=== PATIENT | female | born 1985 | race Caucasian/White ===

== ENCOUNTER 2025-04-16 19:53 | Emergency (ER) | payer BC, SELFPAY ==
--- OUTSIDE RECORDS SUMMARY | 2023-12-25 07:00 | XMS_ITS | Encounter Summary ---
Author Organization [facility] Address [address] [place] [address] Care Team Providers Care Valve Technician Name Role Phone Roopa Mcfarland APRN Primary Care Provider Reason for Referral * Diagnostic Imaging (Routine) - Closed Specialty Diagnoses / Procedures Referred By Contac t Referred To Contact Radiology Diagnoses Pelvic pain Procedures US Non-ob Transvaginal Partha Paz APRN [facility] [address] [phone] Phone: tel: fax: Referral ID Status Reason Start Date Expiration Date Visits Re quested Visits Authorized [id number] Closed 12/16/2023 12/15/2024 1 1 Reason for Visit * Diagnostic Imaging (Routine) - Closed Specialty Diagnoses / Procedures Referred By Contac t Referred To Contact Radiology Diagnoses Pelvic pain Procedures US Non-ob Transvaginal Partha Paz APRN [facility] [address] [place] [phone] Phone: tel: fax: Referral ID Status Reason Start Date Expiration Date Visits Re quested Visits Authorized [id number] Closed 12/16/2023 12/15/2024 1 1 Encounter Details Date Type Department Care Team (Late st Contact Info) Description 12/25/2023 8:00 AM EDT Hospital Encounter [facility] [address] [place] [address] Pelvic pain Social History Tobacco Use Types Packs/Day Years Used Date Smoking Tobacco: Never Smokeless Tobacco: Never Alcohol Use Standard Drinks/Week Comments Yes 0 (1 standard drink = 0.6 oz pur e alcohol) rare AUDIT-C Answer Date Recorded Q1: How often do you have a drink containing alcohol? Never 09/04/2024 Q2: How many drinks containi ng alcohol do you have on a typical day when you are drinking? Patient does not drink Q3: How often do you have si x or more drinks on one occasion? Never 09/04/2024 Abuse Screen Answer Date Recorded Feels Unsafe at Home or Work/School no 09/04/2024 Feels Threatened by Someone no 08/20 Does Anyone Try to Keep You From Having Contact with Others or Doing Things Outside Your Home? no 09/04/2024 Physical Signs of Abuse Present no 09/04/2024 Housing Stability Answer Date Recorded Current Living Arrangements home 08/20 Potentially Unsafe Housing Conditions Not on raya e 09/04/2024 Disabilities Answer Date Recorded Difficulty Concentrating, Remembering or Making Decisions no 09/04/2024 Difficulty Managing Errands Independently no 09/04/2024 Comments No Sex and Gender Information Value Date Recorded Sex Assigned at Female 08/24/2024 4:29 PM EDT Legal Sex Female 11:51 AM EDT Gender Identity Not on file Sexual Orientation Straight 08/24/2024 4: 29 PM EDT documented as of this encounter Plan of Treatment Upcoming Encounters Date Type Department Care Team (Late st Contact Info) Description 04/20/2025 3:45 PM EST Office Visit [facility] [address] [place] [address] Yury Suarez DO [address] [place] [address] documented as of this encounter Procedures Procedure Name Priority Date/Time Associated Diagnosis Comments US NON-OB TRANSVAGINAL Routine 12/25/2023 8:40 AM EDT Pelvic pain documented in this encounter Results * US Non-ob Transvaginal (12/25/2023 8:40 AM EDT) Anatomical Region Laterality Modality Body Ultrasound 12/25/2023 8:32 AM EDT Narrative 12/25/2023 9:42 AM EDT PAT NAME: ALEXANDREA ZARATE [facility] REC#: [id number] DA: [id number] PAT GEND: F PAT TYPE: O EXAM ROSANGELA: [id number] REF PHYS PARTHA PAZ Indication ======== Pain - RLQ and LLQ pain Dx: Pelvic pain [R10.2 (ICD-10-CM)] Comparison Studies There are no relevant prior studies to which this study is being compared History ====== Medical History Past surgical history: Previous surgeries performed Surgery: Hysterectomy 2007 Method ======= Voluson E6, Transvaginal ultrasound examination, Color Doppler flow performed, 3D ultrasound examination. View: Adequate view Uterus ====== Uterus: Not visualized Uterus details: Uterus and cervix are not seen, consistent with stated history. Right Ovary Rt ovary: Normal Rt ovary D1 30.5 mm Rt ovary D2 18.5 mm Rt ovary D3 14.6 mm Rt ovary Vol 4.3 cm Rt ovary other findings: Heterogeneous area [id number] Left Ovary ========= Lt ovary: Normal Lt ovary D1 34.6 mm Lt ovary D2 27.0 mm Lt ovary D3 15.40 mm Lt ovary Vol 7.5 cm Lt ovarian cyst(s): Cysts identified Lt ovarian cyst D1 11.0 mm Lt ovarian cyst D2 8.0 mm Lt ovarian cyst D3 12.0 mm Lt ovarian cyst mean 10.3 mm Lt ovarian cyst vol 0.553 cm Lt ovarian cyst findings: debris filled Lt ovarian cysts other findings: There are mulitple areas with similar appearance, this is the largest one that is measured. Cul de Sac ========= Normal. No free fluid visualized Impression ========= The uterus and cervix are not seen, consistent with stated history of prior hysterectomy. Bilateral ovaries with heterogenous areas, most consistent with hemorrhagic cysts. Recommendation A repeat ultrasound in ~ 6 weeks is recommended to document resolution of the cyst. If clinically appropriate, this study should be ordered in the early follicular phase of the cycle. Melt Superintendant: Humera Gamez RDNV Physician: Magui Nagy MD Electronically signed by: Magui Nagy MD at: 09:42 Procedure Note Magui Nagy MD - 12/25/2023 PAT NAME: ALEXANDREA ZARATE [facility] REC#: [id number] DA: [id number] PAT GEND: F PAT TYPE: O EXAM ROSANGELA: [id number] REF PHYS PARTHA PAZ Indication ======== Pain - RLQ and LLQ pain Dx: Pelvic pain [R10.2 (ICD-10-CM)] Comparison Studies There are no relevant prior studies to which this study is beingcompared History ====== Medical History Past surgical history:Previous surgeries performed Surgery:Hysterectomy Method ======= Voluson E6, Transvaginal ultrasound examination, Color Doppler flowperformed, 3D ultrasound examination. View: Adequate view Uterus ====== Uterus:Not visualized Uterus details:Uterus and cervix are not seen, consistent with statedhistory. Right Ovary Rt ovary:Normal Rt ovary D130.5 mm Rt ovary D218.5 mm Rt ovary D314.6 mm Rt ovary Vol4.3 cm Rt ovary other findings:Heterogeneous area [id number] Left Ovary ========= Lt ovary:Normal Lt ovary D134.6 mm Lt ovary D227.0 mm Lt ovary D315.40 mm Lt ovary Vol7.5 cm Lt ovarian cyst(s):Cysts identified Lt ovarian cyst D111.0 mm Lt ovarian cyst D28.0 mm Lt ovarian cyst D312.0 mm Lt ovarian cyst mean10.3 mm Lt ovarian cyst vol0.553 cm Lt ovarian cyst findings:debris filled Lt ovarian cysts other findings:There are mulitple areas with similarappearance, this is the largest one that is measured. Cul de Sac ========= Normal. No free fluid visualized Impression ========= The uterus and cervix are not seen, consistent with stated history ofprior hysterectomy. Bilateral ovaries with heterogenous areas, most consistent withhemorrhagic cysts. Recommendation A repeat ultrasound in ~ 6 weeks is recommended to document resolution ofthe cyst. If clinically appropriate, this study should be ordered in theearly follicular phase of the cycle. Melt Superintendant: Humera Gamez RDMS Physician: Magui Nagy MD Electronically signed by: Magui Nagy MD at: 09:42 us Partharobert Abel [facility] LATEX SPOOLER IMG US ORDERABLES Kadie l Result documented in this encounter Visit Diagnoses Diagnosis Pelvic pain documented in this encounter Care Teams Valve Technician Relationship Specialty Start Date End Date Roopa Mcfarland APRN [address] [place] [address] PCP - General Nurse Practitioner 06/03/23 documented as of this encounter
--- OUTSIDE RECORDS SUMMARY | 2025-02-18 19:00 | XMS_ITS | Clinical Summary ---
Author Organization Unknown Care Team Providers Care Bench Press Operator Name Role Phone JONNY CANADA Unavailable Unavailable COREY WEISS, CHACE Unavailable Unavailable Payers Payer Name Policy Type Policy Number Effective Date Expira tion Date [facility] [id number] [facility] [id number] Problems Condition Name Condition Details Condition Category Status Onset Date Resolution Date Last Treatment Date Treating Clinician Comments ENCOUNTER FOR ATTENTION TO GASTROSTOMY Active 2024-04 00:00: 00 UNSPECIFIED SEVERE PROTEIN-KATIE AMRITA MALNUTRITION Active 2024-04 00:00: 00 NONINFECTIVE GASTROENTERI TIS AND COLITIS, UNSPECIFIED Active 2024-04 00:00: 00 CONSTIPATION , UNSPECIFIED Active 2024-04 00:00: 00 SYSTEMIC LUPUS ERYTHEMATOSU S, UNSPECIFIED Active 2024-04 00:00: 00 OTHER SPECIFIED NUTRITIONAL DEFICIENCIES Active 2024-04 00:00: 00 SUPRAVENTRIC ULAR TACHYCARDIA, UNSPECIFIED Active 2024-04 00:00: 00 MIGRAINE, UNSP, NOT INTRACTABLE, WITHOUT STATUS MIGRAINOSUS Active 2024-04 00:00: 00 ANXIETY DISORDER, UNSPECIFIED Active 2024-04 00:00: 00 AUTOIMMUNE THYROIDITIS Active 2024-04 00:00: 00 PRSNL HX OF TIA (TIA), AND CEREB INFRC W/O RESID DEFICITS Active 2024-04 00:00: 00 OTHER TREATING PLANT PUMPER (CURRENT) DRUG THERAPY Active 2024-04 00:00: 00 HISTORY OF FALLING Active 2024-04 00:00: 00 Allergies, Adverse Reactions, Alerts Allergy Name Allergy Type Status Severity Reaction(s) Onset Date Inactive Date Treating Clinician Comments ADHESIVE Propensity to adverse reactions Active 2025-01 18:07:5 2 Medications Ordered Medication Name Filled Medication Name Start Date Stop Date Current Medication? Ordering Clinician Indication Dosage Frequency Signature (SIG) Comments Components bisoprolol fumarate 10 mg tablet 2024-04 00:00: 00 Yes [id number] HYPERTENSIO N 1 tablet DAILY 1 tablet DAILY (route: oral) Med Classific ation: Cardiovas cular Therapy Agents levothyroxi ne 25 mcg tablet 2024-04 00:00: 00 Yes [id number] HYPOTHYROID ISM 0.5 tablet DAILY 0.5 tablet DAILY (route: oral) Med Classific ation: Endocrine Nutren 1.5 0.07 gram-1.5 kcal/mL liquid for tube feed 2024-04 00:00: 00 Yes [id number] CACHEXIA 50 mL DIRECTED 50 mL DIRECTED (route: feeding tube) Med Classific ation: Electroly te Balance-N utritiona l Products Xifaxan 550 mg tablet 2024-04 00:00: 00 02-25 23:59 :00 No [id number] DIARRHEA 1 tablet 2 TIMES DAILY 1 tablet 2 TIMES DAILY (route: oral) Med Classific ation: Anti-Infe ctive Agents cyclobenzap rine 5 mg tablet 2024-04 00:00: 00 Yes [id number] MUSCLE SPASM 1 tablet NEEDED 1 tablet NEEDED (route: oral) Med Classific ation: Locomotor System cyproheptad ine 4 mg tablet 2024-04 00:00: 00 Yes [id number] ALLERGIES 1 tablet NEEDED 1 tablet NEEDED (route: oral) Med Classific ation: Respirato ry Therapy Agents dicyclomine 20 mg tablet 2024-04 00:00: 00 Yes [id number] DIARRHEA 1 tablet NEEDED 1 tablet NEEDED (route: oral) Med Classific ation: Gastroint estinal Therapy Agents escitalopra m 10 mg tablet 2024-04 00:00: 00 Yes [id number] DEPRESSION 1 tablet 2 TIMES DAILY 1 tablet 2 TIMES DAILY (route: oral) Med Classific ation: Central Nervous System Agents hydroxyzine HCl 10 mg tablet 2024-04 00:00: 00 Yes [id number] ANXIETY 1 tablet NEEDED 1 tablet NEEDED (route: oral) Med Classific ation: Central Nervous System Agents midodrine 10 mg tablet 2024-04 00:00: 00 Yes [id number] HYPOTENSION 1 tablet 3 TIMES DAILY 1 tablet 3 TIMES DAILY (route: oral) Med Classific ation: Cardiovas cular Therapy Agents omeprazole 40 mg capsule,del ayed release 2024-04 00:00: 00 Yes [id number] ACID REFLUX 1 capsule DAILY 1 capsule DAILY (route: oral) Med Classific ation: Gastroint estinal Therapy Agents promethazin e 12.5 mg tablet 2024-04 00:00: 00 Yes [id number] NAUSEA 1 tablet NEEDED 1 tablet NEEDED (route: oral) Med Classific ation: Respirato ry Therapy Agents topiramate 50 mg tablet 2024-04 00:00: 00 Yes [id number] ANXIETY 1 tablet 2 TIMES DAILY 1 tablet 2 TIMES DAILY (route: oral) Med Classific ation: Central Nervous System Agents trazodone 50 mg tablet 2024-04 00:00: 00 Yes [id number] INSOMNIA 1 tablet BEDTIME 1 tablet BEDTIME (route: oral) Med Classific ation: Central Nervous System Agents Vital Signs Vital Name Observation Time Observation Value Commen ts Temperature 2025-02-19 08:26:00.000 98.7 [degF] Temperature 2025-02-11 12:49:00.000 97.6 [degF] BMI (%) 2025-02-11 12:49:00.000 23 kg/m2 Height 2025-02-11 12:49:00.000 62 [in_us] Pulse 2025-02-19 08:26:00.000 81 /min Pulse 2025-02-11 12:49:00.000 77 /min O2 Saturation (%) 2025-02-19 08:26:00.000 99 % O2 Saturation (%) 2025-02-11 12:49:00.000 98 % Respirations 2025-02-19 08:26:00.000 18 /min Respirations 2025-02-11 12:49:00.000 18 /min Weight (lbs) 2025-02-19 08:26:00.000 132 [lb_av] Weight (lbs) 2025-02-11 12:49:00.000 129 [lb_av] Systolic Blood Pressure 2025-02-19 08:26:00.000 102 mm [Hg] Systolic Blood Pressure 2025-02-11 12:49:00.000 90 mm[ Hg] Diastolic Blood Pressure 2025-02-19 08:26:00.000 68 mm [Hg] Diastolic Blood Pressure 2025-02-11 12:49:00.000 48 mm [Hg] Plan of Treatment Planned Activity Planned Date Details Comments Future Scheduled Test SKILLED NU RSE PRN VISIT ORDER: 2 NEEDED IN PERSON FOR 8 WEEKS AND 1 NEEDED REMOTE VISIT FOR SN FOR 8 WEEKS (NUMBER) OF PRN VISITS MAY BE PERFORMED DURING THIS CERTIFICATION PERIOD FOR THE FOLLOWING REASON(S): FALLS, NAUSEA, FEVER, VOMITING, DIARRHEA, CONSTIPATION, LABS SKILLED NURSE TO EVALUATE AND DEVELOP PLAN OF CARE TO BE SIGNED BY THE PHYSICIAN. SKILLED NURSE TO ASSESS/EVALUATE ANY CONDITIONS THAT PRESENT THEMSELVES AND THAT WILL IMPACT THE PLAN OF CARE DURING THE COURSE OF THE EPISODE TO IDENTIFY CHANGES AND INTERVENE TO MINIMIZE COMPLICATIONS. TEACH AND MONITOR PATIENT/CAREGIVER ABILITY TO SAFELY ADMINISTER MEDICATIONS. PHONE TOUCHPOINTS CAN BE PERFORMED NEEDED TO SUPPLEMENT THE PLAN OF CARE. [code = SKILLED NURSE PRN VISIT ORDER: 2 NEEDED IN PERSON FOR 8 WEEKS AND 1 NEEDED REMOTE VISIT FOR SN FOR 8 WEEKS (NUMBER) OF PRN VISITS MAY BE PERFORMED DURING THIS CERTIFICATION PERIOD FOR THE FOLLOWING REASON(S): FALLS, NAUSEA, FEVER, VOMITING, DIARRHEA, CONSTIPATION, LABS SKILLED NURSE TO EVALUATE AND DEVELOP PLAN OF CARE TO BE SIGNED BY THE PHYSICIAN. SKILLED NURSE TO ASSESS/EVALUATE ANY CONDITIONS THAT PRESENT THEMSELVES AND THAT WILL IMPACT THE PLAN OF CARE DURING THE COURSE OF THE EPISODE TO IDENTIFY CHANGES AND INTERVENE TO MINIMIZE COMPLICATIONS. TEACH AND MONITOR PATIENT/CAREGIVER ABILITY TO SAFELY ADMINISTER MEDICATIONS. PHONE TOUCHPOINTS CAN BE PERFORMED NEEDED TO SUPPLEMENT THE PLAN OF CARE.] Future Scheduled Test PSYCHOSOCI AL / COGNITIVE ASSESSMENT INDICATES THE FOLLOWING NEEDS: (SOCIAL, FINANCIAL, TRANSPORTATION, ADDITIONAL CARE PROVIDERS/ DISCIPLINES, REFERRALS TO OUTSIDE ENTITIES, ETC.). [code = PSYCHOSOCIAL / COGNITIVE ASSESSMENT INDICATES THE FOLLOWING NEEDS: (SOCIAL, FINANCIAL, TRANSPORTATION, ADDITIONAL CARE PROVIDERS/ DISCIPLINES, REFERRALS TO OUTSIDE ENTITIES, ETC.).] Future Scheduled Test SKILLED NU RSE TO OBSERVE AND ASSESS PATIENT WITH GENERALIZED DEPRESSION. ASSESS NEED FOR MEDICATION, MEDICATION CHANGES AND POTENTIAL NEED FOR REFERRAL TO PROVIDE COUNSELING AND ASSISTANCE WITH MANAGING DEPRESSION. [code = SKILLED NURSE TO OBSERVE AND ASSESS PATIENT WITH GENERALIZED DEPRESSION. ASSESS NEED FOR MEDICATION, MEDICATION CHANGES AND POTENTIAL NEED FOR REFERRAL TO PROVIDE COUNSELING AND ASSISTANCE WITH MANAGING DEPRESSION.] Future Scheduled Test CLINICIAN TO EDUCATE PATIENT / CAREGIVER IN FALL PREVENTION AND PROVIDE INTERVENTIONS TO REDUCE FALL RISK AND ENHANCE HOME SAFETY [code = CLINICIAN TO EDUCATE PATIENT / CAREGIVER IN FALL PREVENTION AND PROVIDE INTERVENTIONS TO REDUCE FALL RISK AND ENHANCE HOME SAFETY] Future Scheduled Test SN REMOTE VIDEO VISIT(S) TO ASSESS/EVALUATE AND PROVIDE EDUCATION/TRAINING ON INTERVENTIONS/PROCEDURES PER THE POC, SAFE MEDICATION ADMINISTRATION, DISEASE MANAGEMENT SIGNS/SYMPTOMS OF EXACERBATION, METHODS TO PREVENT EXACERBATION, AND SIGNS/SYMPTOMS TO REPORT AGENCY, PHYSICIAN OR 911. [code = SN REMOTE VIDEO VISIT(S) TO ASSESS/EVALUATE AND PROVIDE EDUCATION/TRAINING ON INTERVENTIONS/PROCEDURES PER THE POC, SAFE MEDICATION ADMINISTRATION, DISEASE MANAGEMENT SIGNS/SYMPTOMS OF EXACERBATION, METHODS TO PREVENT EXACERBATION, AND SIGNS/SYMPTOMS TO REPORT AGENCY, PHYSICIAN OR 911.] Future Scheduled Test PATIENT/CA REGIVER WILL BE KNOWLEDGEABLE OF DISCHARGE PLANS AND WILL DEMONSTRATE/PROVIDE EDUCATION AND RESOURCES NEEDED TO MAINTAIN HEALTH. [code = PATIENT/CAREGIVER WILL BE KNOWLEDGEABLE OF DISCHARGE PLANS AND WILL DEMONSTRATE/PROVIDE EDUCATION AND RESOURCES NEEDED TO MAINTAIN HEALTH.] Future Scheduled Test AGENCY ALBERT L DISCHARGE PATIENT TO PHYSICIAN/HEALTH CARE PROVIDER AND MAY ACCEPT ORDERS FROM THE FOLLOWING PHYSICIANS: JONNY CANADA [code = AGENCY WILL DISCHARGE PATIENT TO PHYSICIAN/HEALTH CARE PROVIDER AND MAY ACCEPT ORDERS FROM THE FOLLOWING PHYSICIANS: JONNY CANADA] Future Scheduled Test SKILLED NU RSE FOR OBSERVATION / ASSESSMENT OF GASTROINTESTINAL STATUS AND TO INTERVENE TO MINIMIZE COMPLICATIONS. SKILLED NURSE TO PROVIDE SKILLED TEACHING/REINFORCEMENT RELATED TO ALTERED GASTROINTESTINAL STATUS INCLUDING PATHOPHYSIOLOGY, SELF CARE MANAGEMENT, NUTRITIONAL REQUIREMENTS, AND MEDICATION REGIMEN [code = SKILLED NURSE FOR OBSERVATION / ASSESSMENT OF GASTROINTESTINAL STATUS AND TO INTERVENE TO MINIMIZE COMPLICATIONS. SKILLED NURSE TO PROVIDE SKILLED TEACHING/REINFORCEMENT RELATED TO ALTERED GASTROINTESTINAL STATUS INCLUDING PATHOPHYSIOLOGY, SELF CARE MANAGEMENT, NUTRITIONAL REQUIREMENTS, AND MEDICATION REGIMEN] Future Scheduled Test SKILLED NU RSE FOR TEACHING OF NG TUBE MANAGEMENT INCLUDING CARE OF SITE, EQUIPMENT, PREPARATION/ADMINISTRATION OF FEEDING AND/OR MEDICATIONS, AND PROBLEM SOLVING TECHNIQUES. TO ADMINISTER NUTREN 1.5 [place] FEEDING VIA PUMP AT 50 ML/HR OVER 22 HOURS. FLUSH WITH 100 ML OF WATER EVERY 4 HRS. MAY BREAK UP FEEDINGS. OK TO DO 3 CONTAINERS IN AM AND 2 CONTAINERS IN PM. [code = SKILLED NURSE FOR TEACHING OF NG TUBE MANAGEMENT INCLUDING CARE OF SITE, EQUIPMENT, PREPARATION/ADMINISTRATION OF FEEDING AND/OR MEDICATIONS, AND PROBLEM SOLVING TECHNIQUES. TO ADMINISTER NUTREN 1.5 [place] FEEDING VIA PUMP AT 50 ML/HR OVER 22 HOURS. FLUSH WITH 100 ML OF WATER EVERY 4 HRS. MAY BREAK UP FEEDINGS. OK TO DO 3 CONTAINERS IN AM AND 2 CONTAINERS IN PM.] Future Scheduled Test SKILLED NU RSE TO FOCUS ON IDENTIFIED NEED FOR HIGH RISK MEDICATION INTERVENTION. [code = SKILLED NURSE TO FOCUS ON IDENTIFIED NEED FOR HIGH RISK MEDICATION INTERVENTION.] Future Scheduled Test SKILLED NU RSE FOR OBSERVATION / ASSESSMENT OF PATIENT'S IMPAIRED NUTRITION RELATED TO MALNUTRITION. INSTRUCT PATIENT / CAREGIVER ON INTERVENTIONS DESIGNED TO IMPROVE NUTRITIONAL INTAKE AND PATIENT WELL BEING. [code = SKILLED NURSE FOR OBSERVATION / ASSESSMENT OF PATIENT'S IMPAIRED NUTRITION RELATED TO MALNUTRITION. INSTRUCT PATIENT / CAREGIVER ON INTERVENTIONS DESIGNED TO IMPROVE NUTRITIONAL INTAKE AND PATIENT WELL BEING.] Goal 2025-02-19 Patient Goal - TO BEABLE TO EAT Goal Provider Goal - A PLAN OF CARE WILL BE ESTABLISHED THAT MEETS ALL PATIENT'S NURSING NEEDS AND COUNTERSIGNED BY PHYSICIAN. Goal Provider Goal - PATIENT/CAREGIVER WILL VERBALIZE/DEMONSTRATE ABILITY FOR THE PATIENT TO FUNCTION WITHIN THEIR COMMUNITY AND TO PARTICIPATE IN THE DEVELOPMENT AND IMPLEMENTATION OF THEIR CARE PLAN THROUGHOUT THE CERTIFICATION PERIOD Goal Provider Goal - PATIENT/CAREGIVER WILL VERBALIZE MEASURES TO COPE WITH DEPRESSION AND STATE SIGNS AND SYMPTOMS TO REPORT TO PHYSICIAN BY 04/11/25 Goal Provider Goal - PATIENT TO DEMONSTRATE REDUCED FALL RISK AND IMPROVE HOME SAFETY BY 04/11/25 Goal Provider Goal - THROUGH REMOTE VIDEO VISIT(S) EDUCATION WILL BE RECEIVED TOWARDS POC ORDERS/GOALS. PATIENT/CAREGIVER WILL VERBALIZE/DEMONSTRATE THE FOLLOWING INTERVENTIONS/PROCEDURES THAT WHERE EDUCATED Goal Provider Goal - PATIENT AND/OR CAREGIVER WILL BE IN AGREEMENT WITH DISCHARGE PLANS AND WILL VERBALIZE HAVING RESOURCES AND KNOWLEDGE TO MAINTAIN HEALTH. Goal Provider Goal - PATIENT WILL REMAIN SAFE AND NEEDS WILL BE MET BY COLLABORATING ON POC AND COMMUNICATING CHANGES IN POC AND CHANGES AFFECTING DISCHARGE PLAN WITH PATIENT, CAREGIVER, RECEIVING PHYSICIAN/HEALTH CARE PROVIDER, AND OTHER PHYSICIANS WRITING ORDERS ON THE POC THROUGHOUT CERTIFICATION PERIOD. Goal Provider Goal - GASTROINTESTINAL STATUS WILL BE EVALUATED AND EXACERBATIONS IDENTIFIED WITH INTERVENTIONS IMPLEMENTED TO MINIMIZE COMPLICATIONS. PATIENT / CAREGIVER WILL VERBALIZE/DEMONSTRATE ABILITY TO CARE FOR ALTERED GASTROINTESTINAL STATUS. GOAL TO BE MET BY 04/11/25 Goal Provider Goal - PATIENT / CAREGIVER WILL BE ABLE TO TOLERATE NUTRITIONAL FEEDINGS AND VERBALIZE/DEMONSTRATE SELF MANAGEMENT OF GASTROSTOMY/JEJUNOSTOMY. GOAL TO BE MET BY 04/11/25 Goal Provider Goal - PATIENT/CAREGIVER DEMONSTRATES ABILITY TO ADHERE TO MEDICATION REGIMEN. GOAL TO BE MET BY 04/11/25 Goal Provider Goal - PATIENT / CAREGIVER WILL VERBALIZE/DEMONSTRATE APPROPRIATE METHODS TO MAINTAIN/GAIN WEIGHT. GOAL TO BE MET BY 04/11/25. Reason for Visit INDEPENDENT IN THE COMMUNITY Encounters Start Date/Time End Date/Time Encounter Type Admission Type Attending [facility] Care Department Encounter ID Discharge Date Discharge Status Discharge Condition Discharge Reason Percent Goals Met 2025-02-11 00:00:00 2025-02-19 00:00:00 Outpatient NEW ADMISSION [facility]ACE NICOLE [facility] [id number] 00:00:00 DISCHARGE TO HOME OR SELF CARE INDEPENDEN T IN THE COMMUNITY PER CLIENT REQUEST 100.00
[2025-04-16] VITALS (8 sets, daily range): BP systolic 99–117; BP diastolic 56–75; PULSE 64–71; RESP 16–20; TEMP 36.8–36.9; O2SAT 95–100; BMI 23.0
--- NOTE | 2025-04-16 20:34 | CT_ITS ---
PROCEDURE INFORMATION: Exam: CT Abdomen And Pelvis With Contrast Exam date and time: 04/16/2025 9:37 PM Age: 39 years old Clinical indication: Abdominal pain; Additional info: Recent pej tube placed; Inc pain, drainage TECHNIQUE: Imaging protocol: Computed tomography of the abdomen and pelvis with contrast. Radiation optimization: All CT scans at this facility use at least one of these dose optimization techniques: automated exposure control; mA and/or kV adjustment per patient size (includes targeted exams where dose is matched to clinical indication); or iterative reconstruction. Contrast material: ISOVUE; Contrast volume: 75 ml; Contrast route: IV; COMPARISON: No relevant prior studies available. FINDINGS: Tubes, catheters and devices: Jejunostomy catheter can be seen pulled to the anterior abdominal wall. This tube is present within the jejunum. Liver: Normal. No mass. Gallbladder and biliary ducts: Cholecystectomy. No ductal dilation. Pancreas: Normal. No ductal dilation. Spleen: Normal. No splenomegaly. Adrenal glands: Normal. No mass. Kidneys and ureters: Normal. No hydronephrosis. Stomach and bowel: Probable transient intussusception small bowel left midabdomen image 47 series 3. Fluid-filled bowel, nonspecific. Appendix: No evidence of appendicitis. Intraperitoneal space: Unremarkable. No free air. No significant fluid collection. Vasculature: Unremarkable. No abdominal aortic aneurysm. Lymph nodes: Unremarkable. No enlarged lymph nodes. Urinary bladder: Unremarkable as visualized. Reproductive: Unremarkable as visualized. Bones/joints: Unremarkable. No acute fracture. Soft tissues: Minimal induration of the soft tissues about the jejunostomy catheter without abscess.. IMPRESSION: Jejunostomy catheter appears to be in good position without evidence of complication. No significant acute findings.
--- OUTSIDE RECORDS SUMMARY | 2025-04-16 20:51 | XMS_ITS | Clinical Summary ---
Author Organization [facility] Address [address] [place] [address] Phone Care Team Providers Care Casing Wringer Operator Name Role Phone Unavailable Unavailable Conditions or Problems No information available. Medications No information available. Medications Administered No information available. Allergies, Adverse Reactions, Alerts No information available. Results No information available. Plan of Care No information available. Procedures No information available. Vital Signs No information available. Immunizations No information available. Advance Directives No information available.
--- OUTSIDE RECORDS SUMMARY | 2025-04-16 20:52 | XMS_ITS | Continuity of Care Document ---
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 - Thyroiditis: The patient's thyroiditis is causing significant symptoms, including voice changes and dysphagia. TSH levels have fluctuated significantly, indicating instability in thyroid function. - Dehydration: The patient is severely dehydrated due to persistent diarrhea and inability to retain fluids, leading to symptoms such as palpitations and dizziness. 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 Further diagnostic imaging is planned to confirm the diagnosis. - Dysphagia: The patient experiences significant difficulty swallowing, leading to avoidance of solid foods and contributing to nutritional deficiencies. - Diarrhea: The patient's diarrhea is severe and persistent, contributing to dehydration and electrolyte imbalances. - Nausea: The patient experiences nausea, particularly when attempting to eat, which is exacerbated by solid food intake. - Gastroesophageal reflux disease: The patient is on omeprazole for management, with ongoing symptoms requiring continued medication. Thyroiditis: - Continue monitoring thyroid function and adjust Synthroid dosage as needed. - Follow-up with endocrinology for further management. Dysphagia: - Avoid solid foods to prevent choking and aspiration. - Consider swallow study if symptoms persist. [email or web address] Not available 02/01/2025 10:47:09 Plan of Treatment Reminders Order Date Submit Date Provider Last Modified By Organization Details Last Modified Time Details Appointments None recorded. Lab None recorded. Referral None recorded. Procedures None recorded. Surgeries None recorded. Imaging None recorded. Medication Orders ondansetron HCl 8 mg tablet 2024 [facility], [address] [facility] [place], [address], 16:06:30 cyproheptad ine 4 mg tablet 2024 [facility], [address] [facility] [place], [address], 16:10:09 omeprazole 40 mg capsule,del ayed release 2024 [facility], [address] [facility] [address], [place], [address], 16:05:09 Patient TargetsNo targets recorded. Patient Instructions Encounter Date Encounter Id Patient Instructions Last Modified By Organization Details Last Modified Time 01/27/2025 [id number] medical record request* [email or web address] Not available 03/01/2025 12:43:15 - Stay hydrated by drinking Gatorade and vitamin water regularly. - Avoid solid foods to prevent choking and aspiration. - Follow up with [facility] for scheduled MRI and consultations. - Take prescribed medications as directed, including omeprazole and Zofran. - Contact healthcare provider if symptoms worsen or new symptoms develop. [email or web address] Not available 01/27/2025 15:33:01 Reason for Referral None Reported. Problems Name Problem SNOMED Code Status Onset Date Resolution Date Notes Provider Name and Address Organization Details Recorded Time Family history of coronary arterios clerosis 846356842 Active 2016 COLEEN VEGA PA-C [facility] [place], [address], [facility] 7 11:04:15 Gastroes ophageal reflux disease 998499075 Active 2021 JONNY CANADA, [employer]PERATOR [employer] [address] [place], [address], [facility] 2 17:19:24 Sick sinus syndrome 96530012 Active 2021 JONNY CANADA, GRINDER SET UP OPERATOR [employer] [address] [place], [address], [facility] 2 17:19:26 Anxiety disorder 103739096 Active 2021 JONNY CANADA, GRINDER [employer] UP OPERATOR [employer] [address] [place], [address], [facility] 2 17:19:27 Migraine 24241061 Active 2021 JONNY CANADA, GRINDER [employer] UP OPERATOR [employer] [address] [place], [address], [facility] 2 17:19:28 Pain of joint of elbow 670443400 Active 2021 JONNY CANADA, GRINDER SET UP OPERATOR [employer] [address] [place], [address], [facility] 2 17:19:30 History of cerebrov ascular accident 936564477 Active 2021 JONNY CANADA, GRINDER [employer] UP OPERATOR [employer] [address] [place], [address], [facility] 2 17:20:42 Hypothyr oidism 32767310 Active 2021 JONNY CANADA, GRINDER [employer] UP OPERATOR [employer] [address] [place], [address], [facility] 2 17:22:19 History of bypass of stomach 787910913 Active 2021 JONNY CANADA, GRINDER SET UP OPERATOR [employer] [address] [place], [address], [facility] 2 17:22:40 Implanta tion of cardiac biventri cular permanen t pacemake r using fluorosc opic guidance Active 2021 JONNY CANADA, GRINDER SET UP OPERATOR [employer] [address] [place], [address], [facility] 2 17:23:04 Inflamma tory polyarth ropathy 015001158 Active 2022 JONNY CANADA, GRINDER SET UP OPERATOR [employer] [address] [place], [address], [facility] 3 13:05:39 Hashimot o thyroidi tis 04408585 Active 2022 JONNY CANADA, GRINDER SET UP OPERATOR [employer] [address] [place], [address], [facility] 3 13:05:40 Iron deficien cy anemia 58235861 Active 2022 JONNY CANADA, GRINDER SET UP OPERATOR [employer] [address] [place], [address], [facility] 3 13:05:41 Low blood pressure 48082533 Active 2022 JONYN CANADA, GRINDER SET UP OPER[employer] [address] [place], [address], [facility] 3 13:05:45 History of traumati c brain injury 99458648282 100 Active 2022 JONNY CANADA, GRINDER SET UP OPERATOR [employer] [address] [place], [address], [facility] 3 13:05:49 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 49340236729 340117 Completed 202208/17/2022 history JONNY CANADA, GRINDER SET UP OPERATOR [employer] [address] [place], [address], [facility] 3 17:15:27 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 64537010121 395100 Active 2022 hx traumati c dissecti on JONNYBRARON COSTA DREAD, GRINDER SET UP OPERATOR [employer] [address] [place], [address], [facility] 3 17:15:27 Bariatri c operativ e procedur e Completed 202307/02/2024 JONNY CANADA, GRINDER SET UP OPERATOR [employer] [address] [place], [address], [facility] 5 13:15:20 Cerebrov ascular accident 838312356 Active 2023 FRANK ANDREA MD [address] [place] [address], [address], [facility] 4 11:24:19 Cardiac pacemake r in situ 367886634 Active 2023 FRANK ANDREA MD [address] [place], [address], [facility] 4 11:24:55 Syncope due to orthosta tic hypotens ion 338110774 Active 2023 FRANK ANDREA MD [facility] [place], [address], [facility] 4 11:25:13 Traumati c brain injury 854780817 Active 2023 FRANK ANDREA MD [address] [place], [address], [facility] 4 11:28:17 Insomnia 161838119 Active 2024 JONNY CANADA, GRINDER SET UP OPERATOR [employer] [address] [place], [address], [facility] 5 10:25:59 Chronic diarrhea 160159558 Active 2024 JONNY CANADA, GRINDER SET UP OPERATOR [employer] [address] [place], [address], [facility] 5 17:16:18 Nausea 410948829 Active 2024 JONNY CANADA, GRINDER SET UP OPERATOR [employer] [address] [place], [address], [facility] 5 17:16:22 Suprapub ic pain 232174929 Active 2024 JONNY CANADA, GRINDER SET UP OPERATOR [employer] [address] [place], [address], [facility] 5 17:16:23 Polycyst ic ovary syndrome 354498604 Active 2024 JONNY CANADA, GRINDER SET UP OPERATOR [employer] [address] [place] [place], [address], [facility] 17:16:25 Female urinary stress incontin ence 78444763 Active 2024 JONNY CANADA, GRINDER SET UP OPERATOR [employer] [address] [place], [address], [facility] 17:16:26 Irritabl e bowel syndrome 94854366 Active 2024 JONNY CANADA, GRINDER SET UP OPERATOR [employer] [address] [place], [address], [facility] 10:43:55 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 295780817 Active 2024 JONNY CANADA, GRINDER SET UP OPERATOR [employer] [address] [place], [address], [facility] 17:07:26 Goiter 4060766 Active 2024 JONNY CANADA, GRINDER SET UP OPERATOR [employer] [address] [place], [address], [facility] 17:13:30 Mass of pancreas 662998556 Active 2024 ALEXA TREJO PA-C [address] [place], [address], [facility] 16:36:35 Restless ness and agitatio n 295128666 Active 2024 ALEXA TREJO PA-C [address] [place], [address], [facility] 16:39:51 Alopecia 93677969 Active 2024 NOR[place], [address], [facility] 16:43:01 Congesti on of nasal sinus 52784353 Active 2024 ALEXA TREJO PA-C [address] [place], [address], [facility] 16:43:21 Problem Notes None recorded. Procedures Surgical History Date Name Laterality Status Provider Name and Address Organization Details Recorded Time 06/10/19 25 TCM completed Radha Story [facility] 06/09/2024 06:29:25 06/03/19 25 Colonoscopy completed Tosin Vdovenko [facility] 06/10/2024 08:51:24 06/03/19 25 endoscopy completed Tosin Vdovenko [facility] 06/10/2024 08:51:32 09/19/19 24 EKG completed Ramila Ruark [facility] 09/19/2023 08:40:31 12/13/19 21 Pap Smear collection completed PARTHA WAGONER, GRINDER SET UP OPERATOR [employer] [address] [place], [address], [facility] 12/12/2020 12:31:44 [facility] 11:15:33 Gstr rstcv px shrt merissa-en-y [facility] 11:15:44 [facility] 11:15:52 [facility] 11:16:47 hysterectomy completed Luciana Miedemer [facility] 12/12/2020 11:16:58 cardiac pacemaker procedure completed Luciana Wiedemer [facility] 12/12/2020 11:17:06 neck repair completed Tosin Vdovenko [facility] 01/12/2022 15:37:18 procedure completed Tosin Vdovenko [facility] 01/12/2022 15:38:12 surgical procedure completed Tosin Vdovenko [facility] 11/13/2024 14:56:00 procedure completed Tosin Vdovenko [facility] 03/15/2025 16:13:39 Imaging Results None recorded. Procedure Notes None recorded. 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 [employer] Serial Number Lot Number Status Provider Name and Address Organization Details Recorded Time Placido Torres [facility] serial #[id number] Y Uche Bach [facility] 09/10/2023 09:17:56 Allergies Allergen ID Allergen Name Allergen Category Reaction Reaction Severity Criticality Documentation Date Start Date Code Code System Note Provider Name and Address Organization Details Recorded Time [id number] Robitussi n medicatio n rash moderate Not available 03/16/20162006 74310 2 RxNorm React ion: RASH; Sever ity: Moder ate; Comme nt: Creat ed By: Nasim Parr nce;C reate d Date: 2006 4:08: 57 PM; Tosin Shin [facility] 2 15:14:25 443610 adhesive tape environme nt,medica tion hives Not available Not available 01/12/2022 Tosindionicio Shin [facility] 2 15:15:04 Medications Name Sig Start Date Stop Date Status Note LastModified by Organization Details LastModified Time amoxicill in 500 mg capsule Take 1 capsule twice a day by oral route for 7 days. 03/29 completed Not Available Not Available Not Available fluconazo le 100 mg tablet Take 1 tablet every day by oral route as directed for 5 days. 07/01 completed Not Available Not Available Not Available Augmentin 875 mg-125 mg tablet Take 1 tablet every 12 hours by oral route for 7 days. 04/24 completed Not Available Not Available Not Available Bromfed DM 2 mg-30 mg-10 mg/5 mL oral syrup Take 10 mL every 4 hours by oral route as needed, for cough. 05/22 completed Not Available Not Available Not Available trazodone 50 mg tablet TAKE 1 TABLET BY MOUTH AT BEDTIME FOR SLEEP 2024 active Not Available Not Available Not Avai lable Multiple Vitamin capsule Daily 12/12 completed Duration : 30 days;Deion quency: daily;Al t Frequenc y: as direct.; Medicati on Descript ion: multivit hunt; Dosage:1 ; Route:or al; refills: 3; Quantity :100 capsule Not Available Not Available Not Available bisoprolo l 10 mg-hydroc hlorothia zide 6.25 mg tablet Take 1 tablet every day by oral route. 11/13 completed Not Available Not Available Not Available ondansetr on HCl 8 mg tablet Take 1 tablet twice a day by oral route as needed for 15 days, for nausea. 2024 active Not Available Not Available Not Avai lable meloxicam 15 mg tablet Take 1 Tablet by mouth once daily. 07/01 completed Not Available Not Available Not Available promethaz ine 12.5 mg tablet Take 1 tablet 4 times a day by mouth as needed for nausea. 2024 active Not Available Not Available Not Avai lable Medrol (Tien) 4 mg tablets in a dose pack take by mouth per package intructi ons x6 days. 01/27 completed Not Available Not Available Not Available gabapenti n 400 mg capsule Take 1 capsule 3 times a day by oral route. 01/12 completed Not Available Not Available Not Available simethico ne 125 mg capsule Take 1 capsule twice a day by oral route. 03/15 completed Not Available Not Available Not Available atenolol 25 mg tablet TAKE 1 TABLET BY MOUTH DAILY NEEDED 09/18 completed Not Available Not Available Not Available Zithromax Z-Tien 250 mg tablet TAKE 2 TABLETS (500 MG) BY ORAL ROUTE ONCE DAILY FOR 1 DAY THEN 1 TABLET (250 MG) BY ORAL ROUTE ONCE DAILY FOR 4 DAYS 02/27 completed Not Available Not Available Not Available Diflucan 150 mg tablet 1 tab PO at onset and then repeat in 72 hours 2024 active Not Available Not Available Not Avai lable Zyrtec 10 mg tablet Take 1 tablet every day by oral route. active Not Available Not Available No t Available metronida zole 500 mg tablet Take 1 tablet every 8 hours by oral route as directed for 10 days. 06/17 completed Not Available Not Available Not Available omeprazol e 40 mg capsule,d elayed release Take 1 capsule twice a day by oral route for 90 days. 2024 active Not Available Not Available Not Avai lable acetamino phen 500 mg tablet Take 1 tablet every 6 hours by oral route as needed for 30 days. 07/01 completed Not Available Not Available Not Available levothyro xine 25 mcg tablet Take 1 tablet every day by oral route. active Not Available Not Available No t Available bisoprolo l fumarate 10 mg tablet Take 1 tablet every day by oral route. active Not Available Not Available No t Available warfarin 3 mg tablet Take 1 tablet every day by oral route. 01/12 completed Not Available Not Available Not Available pantopraz ole 20 mg tablet,de layed release Take by oral route for 30 days. 11/14 completed Not Available Not Available Not Available levothyro xine 75 mcg tablet Take 1 Tablet by mouth once daily in the morning. 10/29 completed Not Available Not Available Not Available cyprohept adine 4 mg tablet Take 1 tablet every day by oral route for 90 days. 03/15 completed Not Available Not Available Not Available FiberCon 625 mg tablet Take by oral route. active Not Available Not Available No t Available methocarb truong 750 mg tablet Take 1 tablet 4 times a day by oral route as needed for 30 days, for muscle pain. 2024 active Not Available Not Available Not Avai lable Imodium A-D 2 mg tablet Take 1 tablet 4 times a day by oral route as needed, for diarrhea . 06/17 completed Not Available Not Available Not Available dicyclomi ne 20 mg tablet Take 1 tablet 4 times a day by oral route as needed for 30 days, for diarrhea , abdomina l pain. 07/01 completed Not Available Not Available Not Available amitripty line 10 mg tablet Take 1 tablet every day by oral route at bedtime for 30 days. 07/23 completed Not Available Not Available Not Available levothyro xine 50 mcg tablet Take 1 Tablet by mouth once daily. 03/15 completed take half tablet q day Not Available Not Available Not Available ferrous sulfate 325 mg (65 mg iron) tablet Take 1 tablet every day by oral route for 30 days. 02/082 completed Not Available Not Available Not Available albendazo le 200 mg tablet Take 2 tablets every day by oral route for 3 days. 11/13 completed Not Available Not Available Not Available Bentyl 10 mg capsule Take 1 capsule 4 times a day by oral route. 06/17 completed Not Available Not Available Not Available Longs Adult Low Strength ASA 81 mg tablet,de layed release Take 1 tablet every day by oral route. 02/27 completed Not Available Not Available Not Available furosemid e 20 mg tablet Take 1 Tablet by mouth daily as needed. active Not Available Not Available No t Available azelastin e 137 mcg (0.1 %) nasal spray [place] 1 spray twice a day by intranas al route for 30 days. 11/13 completed Not Available Not Available Not Available budesonid e DR - ER 3 mg capsule,d elayed,ex tended release Take 3 capsules every day by oral route. 03/15 completed Not Available Not Available Not Available hydroxych loroquine 200 mg tablet Take 1 Tablet by mouth daily. 01/27 completed stopped- per pt- Not Available Not Available Not Available levofloxa mi 750 mg tablet Take 1 tablet every day by oral route as directed for 10 days. 07/01 completed Not Available Not Available Not Available propranol ol 20 mg tablet TAKE 1 TABLET BY MOUTH 3 TIMES A DAY NEEDED FOR DENTAL WORK ANXIETY FOR 10 DAYS 03/15 completed Not Available Not Available Not Available hydroxyzi ne HCl 10 mg tablet take one tablet by mouth TID PRN anxiety/ sleep x30 days 2024 active Not Available Not Available Not Avai lable fludrocor tisone 0.1 mg tablet Take 1 tablet every day by oral route. 05/29 completed Not Available Not Available Not Available colestipo l 1 gram tablet Take 2 tablets twice a day by oral route for 7 days. 07/01 completed Not Available Not Available Not Available Tums 200 mg (as calcium carbonate 500 mg) chewable tablet Daily 12/12 completed Frequenc y: daily;Al t Frequenc y: as direct.; Medicati on Descript ion: calcium carbonat e; Dosage:2 ; Route:or al; refills: 0; Quantity :3 tablet, chewable Not Available Not Available Not Available midodrine 10 mg tablet Take 1 tablet 4 times a day by oral route. active Not Available Not Available No t Available escitalop griselda 10 mg tablet Take 1 tablet twice a day by oral route for 90 days. 03/15 completed Not Available Not Available Not Available cyclobenz aprine 5 mg tablet Take 1 tablet as needed by oral route at bedtime for 30 days, for pain. 2024 active Not Available Not Available Not Avai lable topiramat e 50 mg tablet Take 1 Tablet by mouth twice daily. 2024 active Not Available Not Available Not Avai lable Lyrica 200 mg capsule Take 1 capsule 3 times a day by oral route as needed. 01/12 completed been off 1 month Not Available Not Available Not Available aspirin 81mg daily 03/12 completed Not Available Not Available Not Available vitamin B complex 05/29 completed Not Available Not Available Not Available ferrous sulfate Daily 12/12 completed Frequenc y: daily;Me dication Descript ion: ferrous sulfate; Dosage:1 ; refills: 0; Quantity :1 Not Available Not Available Not Available Culturell e twice a day active Not Available Not Available No t Available levocetir izine 5 mg tablet Take 1 tablet every day by oral route. 07/01 completed Not Available Not Available Not Available Protonix 40 mg granules delayed-r elease packet Take 1 packet every day by oral route for 30 days. 05/02 completed Not Available Not Available Not Available Pristiq 50 mg tablet,ex tended release Take 1 tablet every day by oral route for 30 days. 11/20 completed Not Available Not Available Not Available Xifaxan 550 mg tablet Take 1 tablet 3 times a day by oral route. 03/15 completed Not Available Not Available Not Available simethico ne 80 mg tablet Take by oral route. 12/16 completed Not Available Not Available Not Available loratadin e 10 mg capsule Take 1 capsule every day by oral route as directed . 07/01 completed Not Available Not Available Not Available Creon 36,000 unit-114, 000 unit-180, 000 unit capsule,d elayed release Take 1 capsule 3 times a day by oral route for 10 days. 11/13 completed Not Available Not Available Not Available desvenlaf axine succinate ER 25 mg tablet,ex tended release 24 hr Take 1 tablet every day by oral route for 10 days. 03/12 completed Not Available Not Available Not Available Accu-Chek Guide test strips Use with blood glucose test once daily active Not Available Not Available No t Available Vitals Date Recorded Body height Body mass index (BMI) Body weight Body temperature Oxygen saturation Heart rate Systolic And Diastolic Provider Name and Address Organization Details Last Updated DateTime 160.02 cm 24.3 kg/m2 20309.5 5 g 97.9 [degF] 100 % 74 /min 90/66 mm[Hg] Tosin Shin [facility] 14:48:40 Social History Question Answer Notes LastModified by Organizat ion Details LastModified Time Tobacco Smoking Status [facility] 11:15:22 What Is Your Level Of Caffeine Consumption? Moderate 2 Cans Soda/day [email or web address] Information not available 05/29/2023 What Is The Highest Grade Or Level Of School You Have Completed Or The Highest Degree You Have Received? [id number] [employer] [facility] [email or web address] Information not available 05/29/2023 What Was The Date Of Your Most Recent Tobacco Screening? 11/13/2024 Information not available 11/13/2024 How Many Children Do You Have? 5 Blended Family [email or web address] Information not available 05/29/2023 What Is Your Relationship Status? Single Engaged [email or web address] Information not available 05/29/2023 Do You Use Your Seat Belt Or Car Seat Routinely? Yes Information not available 01/23/2022 Are You Sexually Active? Yes Information not available 01/23/2022 Do You Use Sunscreen Routinely? Yes Information not available 01/23/2022 Has Tobacco Cessation Counseling Been Provided? No Information not available 12/12/2020 Have You Recently Traveled Abroad? No Information not available 01/23/2022 Sex: Female Functional Status Question Answer Note LastModified by Organizat ion Details LastModified Time Do you use any illicit or recreational drugs? No Information not available 12/12/2020 Do you or have you ever used any other forms of tobacco or nicotine? No Information not available 01/23/2022 What is your level of alcohol consumption? None [email or web address] Information not available 05/29/2023 Are you currently employed? Yes [email or web address] Information not available 05/29/2023 What is your exercise level? Moderate Information not available 01/23/2022 Mental Status None recorded. Family History Relationship Description Onset Age of this Age Resolved Age Notes LastModified by Organization Details LastModified Time Paternal Grandmother Malignant neoplasm of uterus [email or web address] Not available 2020 11:14:49 Paternal Grandmother Malignant neoplasm of breast [email or web address] Not available 2024 11:11:16 Father Hyperlipidem ia [email or web address] Not available 04/22 11:19:44 Father Hypertensive disorder [email or web address] Not available 04/22 11:19:33 Father Myocardial infarction 29 [email or web address] Not available 02/2023 11:19:13 Father Salcedo's esophagus [email or web address] Not available 04/22 11:20:01 Mother Disorder of thyroid gland [id number] Not available 04/22 11:20:09 Mother Hypertensive disorder [email or web address] Not available 04/22 11:19:38 Maternal Uncle Myocardial infarction 29 29 [email or web address] Not available 02/2023 11:19:13 Medical History Condition Response Anxiety Disorder Y Blood Transfusion Y Blood Clot Y High Cholesterol Y Headaches Y Stroke Y Thyroid Problems Y Hypertension Y Depression Y Gynecological History Statement/Question Response Abnormal Pap No Painful Periods N Regular Cycles N Sexually Active? Y STIs/STDs N Date of Last Pap Smear Age at Menarche 10 Current Control Method Hysterectom y LMP Approximate Colonoscopy Obstetrics History GPAL:G 2 P 2 0 0 2 Type Value Full Term 2 Living 2 Total 2 Immunizations Vaccine Type Date Status Note Provider Nam e and Address Organization Details Recorded Time SARS-COV-2 (COVID-19) vaccine, UNSPECIFIED 4 completed Tosin Vdovenko [facility] 04/24/2024 14:08:19 influenza, unspecified formulation 4 completed Tosin Vdovenko [facility] 04/24/2024 14:08:28 influenza, unspecified formulation 2 completed Not Available [facility] 05/29/2023 13:13:56 Hep B, unspecified formulation 8 completed Not Available [facility] 05/29/2023 13:13:56 Tdap 1 completed Not Available [facility] 05/29/2023 13:13:56 COVID-19 vaccine, vector-nr, [id number], PF, 0.5 mL 1 completed Jorge Luis Melo [facility] 02/27/2023 12:04:19 influenza, unspecified formulation 3 completed JONNY CANADA APRN [address] [place] [address], [id number], [facility] 05/29/2023 14:12:31 Past Encounters Encounter ID Performer Location Encounter Start Date Encounter Closed Date Diagnosis/Indication Diagnosis SNOMED-CT Code Diagnosis ICD10 Code Diagnosis IMO Codes Diagnosis Note [id number] JONNY CANADA APRN [facility] [address] [id number] 01/27/2025 14:40:52 01/28/2025 08:46:17 Diarrhea 58395207 R19.7 [id number] - Monitor stool frequency and consistenc y. Continue pushing water, electrolyt e drink intake to avoid dehydratio n.BP 90/66, stable and consistent with prev. BPs.- Plan for further evaluation and management at [facility]. 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 Seen in department [id number] Z76.89 [id number] 01/20/25 at [facility] EDreviewed d/c summary, labs. Nausea [id number] R11.0 Pt endorses frequent nausea. Alternatin g Zofran and promethazi ne. Will continue.c ontinue cyprohepta dine to help with appetite- Continue antiemetic therapy with Zofran as needed. Gastroesop hageal reflux disease [id number] K21.9 - Continue omeprazole 40 mg twice daily for symptom management . Dysphagia [id number] R13.1 0 [id number] r/t thyroiditi scontinue to push fluid intake as pt can toleratePt defers swallow eval.Pt under the care of [facility] endocrinol ogy. Will continue to follow. Thyroiditis [id number] E06 .9 [id number] thyromegal y upon PE, tenderness noted. Pt endorses voice hoarseness and dysphagiat hyroid u/s wnl, parathyroi d study performed by GI in [place], [place] wnl.Pt has been seen and evaluated by [facility]-endocri nology. Now under the care of [facility] endocrinol ogy. Will follow. Health Concerns Section Related Observation LastModified by Organization Detai ls LastModified Time None Recorded Concern Status LastModified by Organization Details LastModified Time None Recorded Payers Encounter Date Sequence Insurance Name Policy Number Policy Soto Covered Member ID Soto Member ID Guarantor Name 01/27/2025 1 [place] [place] [employer] 112 Alexandrea Long [id number] Alexandrea Long Notes Date Note Type Note Provider Name and Address Organization Details Recorded Time 5 text/html Hospitalization Contact RecordReported by PatientHospitalization Contact RecordFor follow up, patient reportshospital: __ [facility]anddate of contact: (please enter in format 'mm/dd/yyyy') (01/20/2025)(irregular heart bit, dizziness.).39yo female with PMHx bariatric surgery, anxiety, Janeen's, SSS ST s/p PPM, cardiogenic syncope, Hx CVA, TBI, persistent GI bloating, diarrhea x10 months with new Dx VIPoma presents for ED f/u. Pt presented to [facility] ED 01/20/25 with c/o palpitation. Suspects this is r/t dehydration. Potassium and Mg levels wnl.EKG NSR HR 69.Pt given fluids and Zofran.Unable to tolerate food. Drinking Gatorade, Diet Coke and vitamin water. Unable to tolerate water.Continues to have 20+ BMs /day, per pt.Has appt next week at [facility] with GI for EGD, will see their endocrinology, and has MRI pancreas scheduled. May need short-term TF, per note. Previously,Pt reports constant, sharp razor-like pain that persists. Notes pain and bloating upon eating which leads to dry heaving, bloating. Per pt, has lost ~30# since April 2024.CT abdomen showed possible rectal abscess which was later ruled out. Pt has been seen at ED and [facility]. Given oral abx x2 and IV Zosyn. Has seen GI and had referral to GI 07/09/24.Stool studies wnl. EGD and colonoscopy in hospital grossly normal with Bx wnl. Transvaginal u/s wnl. KUB and pill cam study per [facility], wnl.Notes fluctuating from constipation to diarrhea. Will have anywhere from 8-10 BMs/day. Reports first BM will be formed and subsequent BMs are diarrhea. Will have 3-4 days of constipation following.Is drinking supplement shakes for nutrition. Had syncopal episode at work.Has been eating gluten-free, seed-free.Has had iron infusions x5. GI prescribed magnesium 500mg BID (reports this has helped form stool), Amitiza 8mcg BID (currently nationwide shortage, pt has not obtained med yet). Pt was taking Dulcolax 10-15mg daily and instructed by GI to d/c. Switched from Zofran to cyproheptadine for nausea. Has tried amitriptyline without improvement. Instructed to avoid Colestid by GI. Has taken course of Creon (no improvement), dicyclomine 20mg (caused severe constipation). No record of pt taking Linzess but pt reports having taken this (data deficient).Developed CP. Went to [facility] ED 09/01/24. Was found to have PVCs, pacemaker dysfunction. Has been referred for PPM battery replacement. New Dx VIPoma, 10/2024 ileus with NG tube placement/removal spontaneous and abrupt thyromegaly. u/s positive for thyroiditis.Pt given medrol dosepak, referred to [facility] GI for VIPoma tx.PET CT 11/09/24 with no mass seen on noncontrast study. Has been evaluated by endocrinology. Now under the care of [facility] endocrinology.Has appt with [facility] GI next week.ROS as noted in the HPI Thyroiditis: - The condition has resulted in significant enlargement of the thyroid gland. - The patient has experienced fluctuations in TSH levels, previously as high as 200, now reduced to 25 mcg of Synthroid.- patient now under the care of [facility] endocrinology Dehydration: - The patient is experiencing severe dehydration due to persistent diarrhea and inability to retain fluids. - Symptoms include heart palpitations and dizziness, attributed to dehydration. - The patient has been advised to maintain hydration with Gatorade and vitamin water. Vasoactive intestinal peptide-secreting tumor (VIPoma): - The patient is suspected to have a VIPoma, with symptoms including severe diarrhea and dehydration. - An MRI of the pancreas is scheduled to confirm the diagnosis. - The patient is scheduled for an endoscopy and endocrinology consultation at [facility]. Dysphagia: - The patient reports difficulty swallowing, leading to choking episodes when attempting to eat solid food. - The patient has not consumed solid food for five days due to dysphagia.- declines swallow eval. Possibly will receive feeding tube per GI with [facility]. Diarrhea: - The patient reports experiencing up to 30 bowel movements per day, leading to severe dehydration. - The diarrhea is persistent and has been ongoing for several months. Nausea: - The patient experiences nausea, particularly when attempting to eat. - Nausea is accompanied by vomiting if solid food is consumed. Gastroesophageal reflux disease: - The patient is on omeprazole for management of gastroesophageal reflux disease. - The patient has been taking omeprazole 40 mg twice daily. Documentation on this patient encounter was supported using voice-enabled Al technology. The patient consented to recording for the purpose of documenting the encounter. Provider reviewed content of the generated note prior to signature. JONNY CANADA, GRINDER SET UP OPERATOR GEAR TOOL [address] [place], [address], [facility] [[email or web address]] - [facility] 02/01/2025 10:47:42 OBGyn Episode No OBEpisode recorded.
--- OUTSIDE RECORDS SUMMARY | 2025-04-16 20:52 | XMS_ITS | Encounter Summary ---
Author Organization [employer] ([place], [place], [place], [place], [place]) Address [address] [place] [address] Care Team Providers Care Counter Hand Name Role Phone Roopa Mcfarland TORY Primary Care Provider Encounter Details Date Type Department Care Team (Late st Contact Info) Description 06/16/2018 Transcribed Document [facility] [place] [facility] [place] [address] ProviderJoann MD [address] [place] [address] Social History Tobacco Use Types Packs/Day Years Used Date Smoking Tobacco: Never Assessed Comments Unknown Sex and Gender Information Value Date Recorded Sex Assigned at Not on file Legal Sex Female 4:43 PM CDT Gender Identity Not on file Sexual Orientation Not on file documented as of this encounter Miscellaneous Notes * Cerner Conversion Note - Joann ProviderMD - 06/16/2018 7:48 PM MINING SUPPORT WORKER ED Assessment Entered On: 06/16/2018 20:42 EST Performed On: 06/16/2018 20:42 EST by Talib Batista RN ED Quick Look Assessment Level of Consciousness : Alert Affect/Behavior : Appropriate, Calm, Cooperative Orientation : Oriented x 4 Skin Temperature : Warm Skin Description : Dry Talib Batista RN - 06/16/2018 20:42 EST ED General-Functional Assess Preferred Communication Mode : Verbal Communication Barrier : None Primary Language : Algerian Any Spiritual/Cultural Needs or Requests : No Currently in Unsafe Situation : No Talib Batista RN - 06/16/2018 20:42 EST Social Habits Smoking Status : Never (less than 100 in lifetime; none in last 30 days) Smokeless Tobacco Status : Never Desires Tobacco Cessation Calc : 0 Talib Batista RN - 06/16/2018 20:42 EST Social History (As Of: 06/16/2018 20:42:43 EST) Tobacco: Smoking Status Never smoker. (Last Updated: 12/25/2016 13:10:01 EDT by ALEXANDREA COFFEY RN) Alcohol: Alcohol Use History No. (Last Updated: 11/09/2015 13:45:34 EDT by LONNIE WANG RN) Substance Abuse: Drug Use Hx: No. Use in Last 12 Months: No. (Last Updated: 11/09/2015 13:45:40 EDT by LONNIE WANG, ABHISHEK) Nutrition/Health: Regular, Caffeine intake amount: 1-2 cups a day.. (Last Updated: 12/25/2016 13:10:41 EDT by ALEXANDREA COFFEY RN) Exercise: Exercise type: Walking. Comments: 11/09/2015 13:46 - LONNIE WANG RN: 2-3 miles a day (Last Updated: 11/09/2015 13:46:07 EDT by LONNIE WANG, ABHISHEK) Home/Environment: Lives with Children. Alcohol abuse in household: No. Substance abuse in household: No. Smoker in household: No. Injuries/Abuse/Neglect in household: No. Feels unsafe at home: No. Safe place to go: Yes. Agency(s)/Others notified: No. Family/Friends available for support: Yes. Concern for family members at home: No. Major illness in household: No. Financial concerns: No. TV/Computer concerns: No. 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 Operates hazardous equipment: No. (Last Updated: 11/09/2015 13:47:20 EDT by LONNIE WANG RN) documented in this encounter Plan of Treatment Not on file documented as of this encounter Visit Diagnoses Not on filedocumented in this encounter Care Teams Counter Hand Relationship Specialty Start Date End Date Roopa Mcfarland FNP [address] [phone] PCP - General Nurse Practitioner 01/20/25 documented as of this encounter
--- OUTSIDE RECORDS SUMMARY | 2025-04-16 20:52 | XMS_ITS | Encounter Summary ---
Author Organization [employer] ([place], [place], [place], [place], [place]) Address [address] [place] [address] Care Team Providers Care Wrecker Operator Name Role Phone Roopa Mcfarland TORY Primary Care Provider Encounter Details Date Type Department Care Team (Late st Contact Info) Description 06/17/2018 Transcribed Document [facility] [place] [address] ProviderJoann MD [address] [place] [address] Social History Tobacco Use Types Packs/Day Years Used Date Smoking Tobacco: Never Assessed Comments Unknown Sex and Gender Information Value Date Recorded Sex Assigned at Not on file Legal Sex Female 4:43 PM CDT Gender Identity Not on file Sexual Orientation Not on file documented as of this encounter Miscellaneous Notes * Cerner Conversion Note - Joann Tello MD - 06/17/2018 12:39 AM WIND ENERGY TECHNICIAN ED Discharge Entered On: 06/17/2018 0:39 EST Performed On: 06/17/2018 0:39 EST by Talib Batista RN Admission, ED Nurse Report Accepted By : Sharon WEISS Nurse Report Acceptance Time : 06/17/2018 0:10 EST `Nurse Report (Hand Off) : Called Accompanied By, Discharge : Significant other Mode Of Departure : Stretcher Talib Batista RN - 06/17/2018 0:39 EST Electronically signed by [facility] Conversion Pure Pak Machine Operator Cerner at 08/09/2022 9:17 AM CDT documented in this encounter Plan of Treatment Not on file documented as of this encounter Visit Diagnoses Not on filedocumented in this encounter Care Teams Wrecker Operator Relationship Specialty Start Date End Date Roopa Mcfarland FNP [address] [phone] PCP - General Nurse Practitioner 01/20/25 documented as of this encounter
--- OUTSIDE RECORDS SUMMARY | 2025-04-16 20:52 | XMS_ITS | Encounter Summary ---
Author Organization [employer] ([place], [place], [place], [place], [place]) Address [address] [place] [address] Care Team Providers Care Technical Service Rep Name Role Phone Roopa Mcfarland TORY Primary Care Provider Encounter Details Date Type Department Care Team (Late st Contact Info) Description 06/16/2018 Transcribed Document [facility] [place] [facility] [place] [address] ProviderJoann MD [address] [place] [address] Social History Tobacco Use Types Packs/Day Years Used Date Smoking Tobacco: Never Assessed Comments Unknown Sex and Gender Information Value Date Recorded Sex Assigned at Not on file Legal Sex Female 4:43 PM CDT Gender Identity Not on file Sexual Orientation Not on file documented as of this encounter Miscellaneous Notes * Cerner Conversion Note - Joann ProviderMD - 06/16/2018 11:43 PM POST DOC FELLOWSHIP Admission History, Adult Entered On: 06/17/2018 5:39 EST Performed On: 06/16/2018 23:43 EST by MARYCRUZ FLOR RN Advance Directive Patient has Advance Directive *Q : No, patient refuses Advance Directive information MARYCRUZ FLOR RN - 06/17/2018 5:32 EST Anesthesia/Transfusion History Family History of Anesthesia Reaction : Prior transfusion without reaction Transfusion History : Prior anesthesia without reaction Family History of Anesthesia Reaction : None MARYCRUZ FLOR RN - 06/17/2018 5:32 EST Education Topics, Admission Orientation DCP GENERIC CODE Advance Directives : Verbalizes understanding Allergy Band Applied : Verbalizes understanding Assessment/Vital Signs : Verbalizes understanding Bed Control : Verbalizes understanding Call Light : Verbalizes understanding Confidentiality : Verbalizes understanding Diet/Room Service : Verbalizes understanding Fall Prevention : Verbalizes understanding Hand Hygiene : Verbalizes understanding Healthcare Provider Visit : Verbalizes understanding ID Band Applied : Verbalizes understanding Isolation Precautions : Verbalizes understanding Orientation to Room/Bathroom : Verbalizes understanding Patient Bill of Rights : Verbalizes understanding Patient Rights/Responsibilities : Verbalizes understanding Patient Safety : Verbalizes understanding Personal Privacy Code : Verbalizes understanding Rapid Response Initiated by Patient/Family : Verbalizes understanding Rounding : Verbalizes understanding Siderails use/risks : Verbalizes understanding Skin Precautions : Verbalizes understanding Smoking Policy : Verbalizes understanding Telemetry Monitoring : Verbalizes understanding Television/Phone : Verbalizes understanding Visiting Policy : Verbalizes understanding MARYCRUZ FLOR RN - 06/17/2018 5:32 EST Functional Assessment Living Situation : Home SLATER Hx Falls Immediate/Within 3 Months : No Current Home Treatments : None MARYCRUZ FLOR RN - 06/17/2018 5:32 EST General Info Mode of Arrival on Unit : Ambulatory Legal Guardian : Significant other Support Person/Patient Chief Orthoptist : No Want Family/Rep/Phys Notified of Admit : No Emergency Contact #1 : tonya mendes Emergency Contact #1 Emergency Contact #1 Relationship : parent Emergency Contact #2 : na Emergency Contact #2 Phone Number : na Emergency Contact #2 Relationship : na Chief Complaint : Pt. co Mid chest pain that began at 3pm today with pain radiating to left side. Pt became nauseated and Vomited. Pt reports felt SOA with pain skinpwd. Primary Language : Japanese Preferred Communication Mode : Verbal Communication Barrier : None Status : Patient denies MARYCRUZ FLOR RN - 06/17/2018 5:32 EST Fall Risk Scales ABCs Fall Injury Risk Identification : None Injury Moderate to High Risk Interventions : Transport methods appropriate to patient SLATER Hx Falls Immediate/Within 3 Months : No Slater Secondary Diagnosis : No SLATER Use of Ambulatory Aid : None SLATER IV Therapy or IV Access : Yes Slater Gait/Transferring : Normal, bedrest, immobile Slater Mental Status : Oriented to own ability Slater Fall Risk Score : 20 SLATER Fall Scale Risk Level : 0-24 Low Risk Park Fall Interventions : Adequate lighting, Assistive devices within reach, Bed in low position, Call device within reach, Hourly comfort/safety rounds, Non-slip footwear, Personal items within reach, Reinforced to call for assistance before getting out of bed, Room free of clutter/spills, Upper side-rails up, Wheels locked, Wires/Cords secured Fall Moderate to High Risk Interventions : Transport methods appropriate to patient Barriers to Learning : None evident Highest Level of Education : None Learning Style Preferences Patient : Verbal explanation Fall Risk Scale Calc Temp : 0 MARYCRUZ FLOR RN - 06/17/2018 5:32 EST Health Histories Smoking Status : Never (less than 100 in lifetime; none in last 30 days) Smokeless Tobacco Status : Never MARYCRUZ FLOR RN - 06/17/2018 5:32 EST Social History (As Of: 06/17/2018 05:39:49 EST) Tobacco: Smoking Status Never smoker. (Last Updated: 12/25/2016 13:10:01 EDT by ALEXANDREA COFFEY RN) Never (less than 100 in lifetime) Smoking Status. (Last Updated: 06/17/2018 05:36:40 EST by MARYCRUZ FLOR RN) Alcohol: Alcohol Use History No. (Last Updated: 11/09/2015 13:45:34 EDT by LONNIE WANG RN) Alcohol Use History No. (Last Updated: 06/17/2018 05:36:46 EST by MARYCRUZ FLOR RN) Substance Abuse: Drug Use Hx: No. Use in Last 12 Months: No. (Last Updated: 11/09/2015 13:45:40 EDT by LONNIE WANG RN) Drug Use Hx: No. Use in Last 12 Months: No. (Last Updated: 06/17/2018 05:36:53 EST by MARYCRUZ FLOR, ABHISHEK) Nutrition/Health: Regular, Caffeine intake amount: 1-2 cups a day.. (Last Updated: 12/25/2016 13:10:41 EDT by ALEXANDREA COFFEY, ABHISHEK) Exercise: Exercise type: Walking. Comments: 11/09/2015 13:46 - LONNIE WANG RN: 2-3 miles a day (Last Updated: 11/09/2015 13:46:07 EDT by EASTRIDGE, LONNIE, RN) Home/Environment: Lives with Children. 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 Operates hazardous equipment: No. (Last Updated: 11/09/2015 13:47:20 EDT by LONNIE WANG, RN) Height and Weight, Clinical Dosing Weight Source : Standing scale Weight Entry Format : [place] Clinical Dosing Weight : 65.03 kg Weight, Pounds : 143 lb Weight, Ounces : 1 oz Body Surface Area (BSA) : 1.68 m2 Body Mass Index : 25.4 kg/m2 (HI) MARYCRUZ FLOR RN - 06/17/2018 5:41 EST Height Source : Measured Height Entry Format : [place] Height, Feet : 5 ft(Converted to: 152 cm, 60 Inch) Height, Inches : 3 Inch(Converted to: 0 ft 3 Inch, 7.62 cm) Clinical Height : 160.02 cm [place] Body Weight : 52 kg MARYCRUZ FLOR RN - 06/17/2018 5:32 EST Infectious Disease History Infectious Disease History : Chicken pox/Shingles Fever/Chills Last 48 Hours : No Travel To Regions with Travel Advisories : No Travel Outside [place] Within Last 30 Days : No Contact With Traveler to Advisory Region : No Tuberculosis Symptoms : None MARYCRUZ FLOR RN - 06/17/2018 5:32 EST Influenza Vaccine Asmt, Adult Previous Vaccines from Immunization Schedule : No qualifying data available. Influenza Immunization, Current Season : No Inactivated Flu Vaccine Contraindications : No contraindications to inactivated influenza vaccine Transplant Workup/Recent Transplant : No Order for Influenza Vaccine : Declined Vaccination MARYCRUZ FLOR RN - 06/17/2018 5:32 EST Pneumococcal Vaccine Previous Vaccines from Immunization Schedule : No qualifying data available. Pneumonia Immunization Received : No Pneumococcal Risk Assessment < Age 65 : None MARYCRUZ FLOR RN - 06/17/2018 5:32 EST Order Details Transport Mode Order Detail : Wheelchair Isolation Precautions Order Detail : Standard Precautions Order Detail : 0 IV Order Detail : 1 Oxygen Order Detail : 0 Nurse Collect Order Detail : 0 Lift/Transfer : Independent Central Line Order Detail : No Room Service : Appropriate Arterial Line : No MARYCRUZ FLOR RN - 06/17/2018 5:32 EST Nutrition History Adaptive Feeding Equipment : Regular Oral Medication Administration : By mouth Eating Poorly Due to Decreased Appetite : No Unplanned Weight Loss in Past 3-6 Months : No Malnutrition Screening Tool Total(mal) : 0 Malnutrition Screening Tool Risk Level : Patient not at risk MARYCRUZ FLOR RN - 06/17/2018 5:32 EST Psychosocial History Chronic/Terminal Illness w/Freq Visits : No Do You Have a History of the Following? : Patient denies history Currently in Unsafe Situation : No Tried to Harm Yourself in the Past? : No Thoughts of Harming/Killing Yourself : No MARYCRUZ FLOR RN - 06/17/2018 5:32 EST Sleep Apnea Risk Assmt Hx of Obstructive Sleep Apnea Diagnosis : No Snore Loudly : No Tired, Fatigued, or Sleepy During Day : No Observed Stopping Breathing During Sleep : No Have/Are Being Treated for Hypertension : No STOP Sleep Apnea Risk Level Score : 0 STOP Sleep Apnea Risk Level : Low BMI Greater Than 35 kg/m2 : No Age over 50 Years Old : No Gender Male : No Neck Circumference Measured (cms) : 0 cm STOP-BANG Sleep Apnea Risk Level Score : 0 Neck Circumference Greater Than 40 cm : No MARYCRUZ FLOR RN - 06/17/2018 5:32 EST Valuables and Belongings Valuables and Belongings : Clothing Clothing : Common streetwear Clothing Disposition : With patient MARYCRUZ FLOR RN - 06/17/2018 5:32 EST Electronically signed by Christiano [place] Conversion Assembly Room Supervisor Megner at 08/09/2022 9:23 AM CDT documented in this encounter Plan of Treatment Not on file documented as of this encounter Visit Diagnoses Not on filedocumented in this encounter Care Teams Technical Service Rep Relationship Specialty Start Date End Date Roopa Mcfarland FNP [address] [place] [address] PCP - General Nurse Practitioner 01/20/25 documented as of this encounter
--- OUTSIDE RECORDS SUMMARY | 2025-04-16 20:52 | XMS_ITS | Encounter Summary ---
Author Organization [employer] ([place], [place], [place], [place], [place]) Address [address] [place] [address] Care Team Providers Care Batting Machine Operator Name Role Phone Roopa Mcfarland TORY Primary Care Provider Encounter Details Date Type Department Care Team (Late st Contact Info) Description 06/17/2018 Transcribed Document [facility] [place] [facility] [place] [address] ProviderJoann MD [address] [place] [address] Social History Tobacco Use Types Packs/Day Years Used Date Smoking Tobacco: Never Assessed Comments Unknown Sex and Gender Information Value Date Recorded Sex Assigned at Not on file Legal Sex Female 4:43 PM CDT Gender Identity Not on file Sexual Orientation Not on file documented as of this encounter Miscellaneous Notes * Cerner Conversion Note - Joann Tello MD - 06/17/2018 2:51 PM INVESTIGATIVE ASSISTANT Discharge Instructions Entered On: 06/17/2018 14:52 EST Performed On: 06/17/2018 14:51 EST by CHRIS MCFARLANE RN DC Instructions HWD Stroke/TIA Discharge Ins : N/A Heart Failure Discharge Ins : N/A Warfarin Discharge Ins : N/A Diet After Discharge : Heart healthy diet Activity After Discharge : As tolerated Driving After Discharge : Do not drive Showering/Bathing : May shower CHRIS MCFARLANE RN - 06/17/2018 14:51 EST documented in this encounter Plan of Treatment Not on file documented as of this encounter Visit Diagnoses Not on filedocumented in this encounter Care Teams Batting Machine Operator Relationship Specialty Start Date End Date Roopa Mcfarland FNP [address] [place] [address] PCP - General Nurse Practitioner 01/20/25 documented as of this encounter
--- OUTSIDE RECORDS SUMMARY | 2025-04-16 20:52 | XMS_ITS | Encounter Summary ---
Author Organization [employer] ([place], [place], [place], [place], [place]) Address [address] [place] [address] Care Team Providers Care Shop Superintendent Name Role Phone Roopa Mcfarland TORY Primary Care Provider Encounter Details Date Type Department Care Team (Late st Contact Info) Description 06/16/2018 Transcribed Document [facility] [place] Family [place] [facility] [place] [address] ProviderJoann MD [address] [place] [address] Social History Tobacco Use Types Packs/Day Years Used Date Smoking Tobacco: Never Assessed Comments Unknown Sex and Gender Information Value Date Recorded Sex Assigned at Not on file Legal Sex Female 4:43 PM CDT Gender Identity Not on file Sexual Orientation Not on file documented as of this encounter Miscellaneous Notes * Cerner Conversion Note - Joann ProviderMD - 06/16/2018 7:48 PM CARAMEL CUTTER MACHINE ED Triage Entered On: 06/16/2018 20:03 EST Performed On: 06/16/2018 19:59 EST by DAVE SARGENT CREDIT RISK MANAGEMENT DIRECTOR Triage Across the Room Triage Date/Time : 06/16/2018 19:59 EST Chief Complaint : Pt. co Mid chest pain that began at 3pm today with pain radiating to left side. Pt became nauseated and Vomited. Pt reports felt SOA with pain skinpwd. DAVE SARGENT RN - 06/16/2018 19:59 EST DCP GENERIC CODE Tracking Acuity : 2 - Emergent Tracking Group : [facility] ED DAVE Sam RN - 06/16/2018 19:59 EST Mode of Arrival : Ambulatory Transported to ED by : Private vehicle To Room Via : Ambulate Accompanied By : Significant other ED Vital Signs : Document Height & Weight : Document ED Allergies : Document ED Reason for Visit : Document Status : Patient denies Tetanus Immunization : Unknown DAVE SARGENT RN - 06/16/2018 19:59 EST Infectious Disease History Infectious Disease History : Chicken pox/Shingles Fever/Chills Last 48 Hours : No Travel To Regions with Travel Advisories : No Travel Outside [place] Within Last 30 Days : No Contact With Traveler to Advisory Region : No Tuberculosis Symptoms : None DAVE SARGENT RN - 06/16/2018 19:59 EST Vital Signs ED Temperature Source : Tympanic Temperature Mode : Fahrenheit Temperature, Fahrenheit : 99.1 Deg F ED Pain : Yes Clinical Temperature, C : 37.3 Deg C Oxygen Therapy Mode : Room air Peripheral Pulse Rate : 60 bpm Respiratory Rate : 18 Breaths/Min Systolic Blood Pressure : 105 mmHg Diastolic Blood Pressure : 65 mmHg Oxygen Saturation : 100 % DAVE SARGENT RN - 06/16/2018 19:59 EST Allergy (As Of: 06/16/2018 20:03:00 EST) Allergies (Active) Tape Estimated Onset Date: Unspecified ; Created By: CONNIE GUERRERO RN; Reaction Status: Active ; Category: Environment ; Substance: Tape ; Type: Allergy ; Updated By: CONNIE GUERRERO RN; Reviewed Date: 06/16/2018 19:59 EST Diagnosis Control ED (As Of: 06/16/2018 20:03:00 EST) Problems(Active) Cardiac pacemaker (SNOMED CT :0983329196 ) Name of Problem: Cardiac pacemaker ; Onset Date: 07/06/2012 ; Recorder: LONNIE WANG RN; Confirmation: Confirmed ; Classification: Patient Stated ; Code: [id number] ; Contributor System: [employer] ; Last Updated: 11/09/2015 13:40 EDT ; Life Cycle Date: 11/09/2015 ; Life Cycle Status: Active ; Vocabulary: SNOMED CT Delivered by section (SNOMED CT :472835136 ) Name of Problem: Delivered by section ; Recorder: LONNIE WANG RN; Confirmation: Confirmed ; Classification: Patient Stated ; Code: [id number] ; Contributor System: PowerChart ; Last Updated: 11/09/2015 13:36 EDT ; Life Cycle Date: 11/09/2015 ; Life Cycle Status: Active ; Vocabulary: SNOMED CT ; Comments: 11/09/2015 13:36 - LONNIE WANG RN X 2 H/O gastric bypass (SNOMED CT :590493234 ) Name of Problem: H/O gastric bypass ; Onset Date: 04/22/2003 ; Recorder: LONNIE WANG RN; Confirmation: Confirmed ; Classification: Patient Stated ; Code: [id number] ; Contributor System: PowerChart ; Last Updated: 11/09/2015 13:39 EDT ; Life Cycle Date: 11/09/2015 ; Life Cycle Status: Active ; Vocabulary: SNOMED CT H/O: hysterectomy (SNOMED CT :172887539 ) Name of Problem: H/O: hysterectomy ; Onset Date: 04/22/2008 ; Recorder: LONNIE WANG RN; Confirmation: Confirmed ; Classification: Patient Stated ; Code: [id number] ; Contributor System: PowerChart ; Last Updated: 11/09/2015 13:39 EDT ; Life Cycle Date: 11/09/2015 ; Life Cycle Status: Active ; Vocabulary: SNOMED CT History of cholecystectomy (SNOMED CT :8757015592 ) Name of Problem: History of cholecystectomy ; Onset Date: 04/22/2003 ; Recorder: LONNIE WANG RN; Confirmation: Confirmed ; Classification: Patient Stated ; Code: [id number] ; Contributor System: PowerChart ; Last Updated: 11/09/2015 13:38 EDT ; Life Cycle Date: 11/09/2015 ; Life Cycle Status: Active ; Vocabulary: SNOMED CT Hypothyroid (SNOMED CT :125752825 ) Name of Problem: Hypothyroid ; Recorder: PHU NEUMANN PA; Confirmation: Confirmed ; Classification: Medical ; Code: [id number] ; Contributor System: PowerChart ; Last Updated: 12/25/2016 13:08 EDT ; Life Cycle Date: 12/25/2016 ; Life Cycle Status: Active ; Vocabulary: SNOMED CT MVP (mitral valve prolapse) (SNOMED CT :7842944455 ) Name of Problem: MVP (mitral valve prolapse) ; Recorder: CONNIE GUERRERO RN; Confirmation: Confirmed ; Classification: Patient Stated ; Code: [id number] ; Contributor System: PowerChart ; Last Updated: 12/19/2016 8:58 EDT ; Life Cycle Date: 12/19/2016 ; Life Cycle Status: Active ; Vocabulary: SNOMED CT MVP (mitral valve prolapse) (SNOMED CT :[id number] ) Name of Problem: MVP (mitral valve prolapse) ; Recorder: PHU NEUMANN PA; Confirmation: Confirmed ; Classification: Medical ; Code: [id number] ; Contributor System: [employer] ; Last Updated: 12/25/2016 13:09 EDT ; Life Cycle Date: 12/25/2016 ; Life Cycle Status: Active ; Vocabulary: SNOMED CT PAF (paroxysmal atrial fibrillation) (SNOMED CT :[id number] ) Name of Problem: PAF (paroxysmal atrial fibrillation) ; Recorder: PHU NEUMANN PA; Confirmation: Confirmed ; Classification: Medical ; Code: [id number] ; Contributor System: [employer] ; Last Updated: 12/25/2016 13:04 EDT ; Life Cycle Date: 12/25/2016 ; Life Cycle Status: Active ; Vocabulary: SNOMED CT SSS (sick sinus syndrome) (SNOMED CT :[id number] ) Name of Problem: SSS (sick sinus syndrome) ; Recorder: PHU NEUMANN PA; Confirmation: Confirmed ; Classification: Medical ; Code: [id number] ; Contributor System: PowerChart ; Last Updated: 12/25/2016 13:04 EDT ; Life Cycle Date: 12/25/2016 ; Life Cycle Status: Active ; Vocabulary: SNOMED CT Tachycardia (SNOMED CT :0038832861 ) Name of Problem: Tachycardia ; Recorder: CONNIE GUERRERO RN; Confirmation: Confirmed ; Classification: Patient Stated ; Code: [id number] ; Contributor System: [employer]ix ; Last Updated: 12/19/2016 8:58 EDT ; Life Cycle Date: 12/19/2016 ; Life Cycle Status: Active ; Vocabulary: SNOMED CT Thyroid disease (SNOMED CT :861974966 ) Name of Problem: Thyroid disease ; Recorder: CONNIE GUERRERO RN; Confirmation: Confirmed ; Classification: Patient Stated ; Code: [id number] ; Contributor System: [employer] ; Last Updated: 12/19/2016 8:59 EDT ; Life Cycle Date: 12/19/2016 ; Life Cycle Status: Active ; Vocabulary: SNOMED CT Diagnoses(Active) Chest pain Date: 06/16/2018 ; Diagnosis Type: Reason For Visit ; Confirmation: Confirmed ; Clinical Dx: Chest pain ; Classification: Medical ; Clinical Service: Emergency medicine ; Code: PNED ; Probability: 0 ; Diagnosis Code: [id number] Chest pain Date: 06/16/2018 ; Diagnosis Type: Reason For Visit ; Confirmation: Complaint of ; Clinical Dx: Chest pain ; Classification: Medical ; Clinical Service: Emergency medicine ; Code: PNED ; Probability: 0 ; Diagnosis Code: [id number] ED Height and Weight Height Source : Measured Height Entry Format : [place] Height, Feet : 5 ft(Converted to: 152 cm, 60 Inch) Height, Inches : 3 Inch(Converted to: 0 ft 3 Inch, 7.62 cm) Clinical Height : 160.02 cm Weight Source, ED : Critical estimated dosing weight Weight Entry Format : [place] Weight, Pounds : 135 lb Clinical Dosing Weight : 61.36 kg Body Surface Area (BSA) : 1.64 m2 Body Mass Index : 24 kg/m2 [place] Body Weight (IBW) : 52.02 kg DAVE SARGENT RN - 06/16/2018 19:59 EST Pain Assessment Pain Assessment : Initial assessment Pain Scale Used : 0-10 Scale DAVE SARGENT RN - 06/16/2018 19:59 EST Pain Scale Intensity : 5 DAVE SARGENT RN - 06/16/2018 19:59 EST Image 4 - Images currently included in the form version of this document have not been included in the text rendition version of the form. ED Influenza/Pneumoccocal Vaccine Influenza Immunization, Current Season : No Previous Vaccines from Immunization Schedule : No qualifying data available. DAVE SARGENT RN - 06/16/2018 19:59 EST Electronically signed by [facility] Conversion Prescriptionist Cerner at 08/09/2022 9:25 AM CDT documented in this encounter Plan of Treatment Not on file documented as of this encounter Visit Diagnoses Not on filedocumented in this encounter Care Teams Shop Superintendent Relationship Specialty Start Date End Date Roopa Mcfarland, TORY [address] [place] [address] PCP - General Nurse Practitioner 01/20/25 documented as of this encounter
--- OUTSIDE RECORDS SUMMARY | 2025-04-16 20:52 | XMS_ITS | Encounter Summary ---
Author Organization [employer] ([place], [place], [place], [place], [place]) Address [address] [place] [address] Care Team Providers Care Swage Tender Name Role Phone Roopa Mcfarland Primary Care Provider Encounter Details Date Type Department Care Team (Late st Contact Info) Description 06/17/2018 Transcribed Document [facility] [place] [address] ProviderJoann MD [address] [place] [address] Social History Tobacco Use Types Packs/Day Years Used Date Smoking Tobacco: Never Assessed Comments Unknown Sex and Gender Information Value Date Recorded Sex Assigned at Not on file Legal Sex Female 4:43 PM CDT Gender Identity Not on file Sexual Orientation Not on file documented as of this encounter Miscellaneous Notes * Cerner Conversion Note - Joann Tello MD - 06/17/2018 5:39 AM GAME PROGRAMMER Care Management Assessment/Plan Entered On: 06/17/2018 11:26 EST Performed On: 06/17/2018 11:23 EST by Kari Ayers RN Care Management Note Anticipated Discharge Date : 06/18/2018 21:00 EST Care Management Note : Chart review and patient interview with [employer] other at bedside. Patient admitted with chest pain. Hx of SSS, pacemaker, MVP. Patient verfies address, phone and primary provider. Prior to admission patient was independent in all areas. No DME in use, no services in place. Resides with minor children and boyfriend. Mother is next of kin emergency contact Lara Olsen. Physical address is [address] [place] [address] [facility] [address]. LOW readmission score. Home plan...arh Documentation Status Complete : Yes Kari Ayers, RN - 06/17/2018 11:23 EST Patient History Information Obtained from, Care Mgt : Patient, Medical Record Current Primary Care Physician : Ricky Marks Emergency Contact #1 : Lara Olsen Emergency Contact #1 Emergency Contact #1 Relationship : Mother Emergency Contact #2 : na Emergency Contact #2 Phone Number : na Emergency Contact #2 Relationship : na Living Situation : Home Patient Lives With : Child/Children, Significant other(s) Mobility Assistance Prior to Admission : Independent Current Daily Living Assistance : None Professional Skilled Services : None Current Home Treatments : None Home Equipment : None Kari Ayers RN - 06/17/2018 11:23 EST Final Discharge Disposition Note-CM Discharge To Care Management : Home/Residential/Senior Living or Self Care -01 Kari Ayers, RN - 06/17/2018 11:23 EST Electronically signed by [facility] Conversion Coffee Sommelier Cerner at 08/09/2022 9:17 AM CDT documented in this encounter Plan of Treatment Not on file documented as of this encounter Visit Diagnoses Not on filedocumented in this encounter Care Teams Swage Tender Relationship Specialty Start Date End Date Roopa Mcfarland FNP [address] [place] [address] PCP - General Nurse Practitioner 01/20/25 documented as of this encounter
--- OUTSIDE RECORDS SUMMARY | 2025-04-16 20:52 | XMS_ITS | Encounter Summary ---
Author Organization [employer] ([place], [place], [place], [place], [place]) Address [address] [place] [address] Care Team Providers Care Pipe Coverer And Insulator Name Role Phone Christian Mcfarlandjeanette Delgadoe TORY Primary Care Provider Encounter Details Date Type Department Care Team (Late st Contact Info) Description 06/17/2018 Transcribed Document [facility] [place] [facility] [address] ProviderJoann MD [address] [place] [address] Social History Tobacco Use Types Packs/Day Years Used Date Smoking Tobacco: Never Assessed Comments Unknown Sex and Gender Information Value Date Recorded Sex Assigned at Not on file Legal Sex Female 4:43 PM CDT Gender Identity Not on file Sexual Orientation Not on file documented as of this encounter Miscellaneous Notes * Cerner Conversion Note - Joann ProviderMD - 06/17/2018 4:08 PM PATIENT REPRESENTATIVE [place] [address], [place] [address] Patient Copy Patient Information: Name: DELLA GUTIERREZ Current Date: 06/17/2018 16:08:29 : 1985 Patient Address: [address] [id number] Patient Attending Physician: JOSE ALEJANDRO PEDROZA MD-CHUCKY Primary Care Provider: MARTI ORELLANA (REF) Primary Care Provider Discharge Diagnosis: Palpitations Weight on Admission: 135 lb, 0 oz Weight at Discharge: 143 lb, 1 oz Comment: Follow-up Instructions: With: Address: When: JOSE ALEJANDRO PEDROZA [address] [place] [address] Business (1) Within 2 to 4 weeks Comments: Office to call with appoint/instructions Bring Ins Card, Photo ID, Ins Co-pay Discharge Instructions: Diet after Discharge: Heart healthy diet Activity after Discharge: As tolerated Driving after Discharge: Do not drive Work/School Release Given: Yes Showering/Bathing: May shower Immunizations Documented During Stay: No Immunizations Found Heart Failure Discharge Instructions (if any): Stroke Related Discharge Instructions (if any): Warfarin Related Discharge Instructions (if any): Final Medication List: Other Medications atenolol (atenolol 25 mg oral tablet) 1 Tablet(s) Oral Every Day. doxycycline (doxycycline hyclate 50 mg oral capsule) 1 Capsule(s) Oral every 12 hours. ivabradine (Corlanor) 5 Milligram(s) Oral Two Times A Day. levothyroxine (Synthroid 75 mcg (0.075 mg) oral tablet) 1 Tablet(s) Oral Every Day. midodrine 10 Milligram(s) Oral Three Times A Day. topiramate (Topamax 50 mg oral tablet) 1 Tablet(s) Oral Two Times A Day. ubiquinone (Coenzyme Q10 100 mg oral capsule) 2 Capsule(s) Oral Every Day. Patient Allergies: Tape Medication Instructions: Take your medications faithfully. Do NOT skip medication. Do NOT stop taking medications without the direction of a physician. Carry a list of your medications with you at all times, and take this medication list with you to your first follow up visit. Report any side effects. Avoid herbal remedies unless discussed with your physician. As part of your treatment plan, your physician may have prescribed a limited course of a controlled substance. This medication may be given to help people with moderate or severe pain or for other medical conditions, but there are risks involved with treatment. Common side effects may include nausea, constipation, drowsiness, sweating, itching, dry mouth, and rash. More serious side effects may include cognitive and motor impairment, like problems with thinking, concentrating, alertness, and movement (e.g. slowed reflexes), and driving and operating heavy machinery can be dangerous. It is important for you to talk to your physician if you have these side effects or questions. These controlled substances can produce physical dependence and be habit-forming if taken for an extended period of time, which means that the body has gotten used to them and may experience withdrawal symptoms if they are abruptly stopped. Withdrawal symptoms can include runny nose, sweating, goose bumps, diarrhea, abdominal cramping, rapid heartbeat, difficulty sleeping, and nervousness. Patient education materials: Heart-Healthy Eating Plan Introduction Heart-healthy meal planning includes: ??? Limiting unhealthy fats. ??? Increasing healthy fats. ??? Making other small dietary changes. You may need to talk with your doctor or a diet specialist (dietitian) to create an eating plan that is right for you. What types of fat should I choose? Choose healthy fats. These include olive oil and canola oil, flaxseeds, walnuts, almonds, and seeds. ??? Eat more omega-3 fats. These include salmon, mackerel, sardines, tuna, flaxseed oil, and ground flaxseeds. Try to eat fish at least twice each week. ??? Limit saturated fats.? Saturated fats are often found in animal products, such as meats, butter, and cream. ? Plant sources of saturated fats include palm oil, palm kernel oil, and coconut oil. ??? Avoid foods with partially hydrogenated oils in them. These include stick margarine, some tub margarines, cookies, crackers, and other baked goods. These contain trans fats. What general guidelines do I need to follow? Check food labels carefully. Identify foods with trans fats or high amounts of saturated fat. ??? Fill one half of your plate with vegetables and green salads. Eat 4?5 servings of vegetables per day. A serving of vegetables is:? 1 cup of raw leafy vegetables. ? ? cup of raw or cooked cut-up vegetables. ? ? cup of vegetable juice. ??? Fill one fourth of your plate with whole grains. Look for the word whole as the first word in the ingredient list. ??? Fill one fourth of your plate with lean protein foods. ??? Eat 4?5 servings of fruit per day. A serving of fruit is:? One medium whole fruit. ? ? cup of dried fruit. ? ? cup of fresh, frozen, or canned fruit. ? ? cup of 100% fruit juice. ??? Eat more foods that contain soluble fiber. These include apples, broccoli, carrots, beans, peas, and barley. Try to get 20?30 g of fiber per day. ??? Eat more home-cooked food. Eat less restaurant, buffet, and fast food. ??? Limit or avoid alcohol. ??? Limit foods high in starch and sugar. ??? Avoid fried foods. ??? Avoid frying your food. Try baking, boiling, grilling, or broiling it instead. You can also reduce fat by:? Removing the skin from poultry. ? Removing all visible fats from meats. ? Skimming the fat off of stews, soups, and gravies before serving them. ? Steaming vegetables in water or broth. ??? Lose weight if you are overweight. ??? Eat 4?5 servings of nuts, legumes, and seeds per week:? One serving of dried beans or legumes equals ? cup after being cooked. ? One serving of nuts equals 1? ounces. ? One serving of seeds equals ? ounce or one tablespoon. ??? You may need to keep track of how much salt or sodium you eat. This is especially true if you have high blood pressure. Talk with your doctor or dietitian to get more information. What foods can I eat? GrainsBreads, including Russian, white, ángel, wheat, raisin, rye, oatmeal, and Kenyan. Tortillas that are neither fried nor made with lard or trans fat. Low-fat rolls, including hotdog and hamburger buns and Welsh muffins. Biscuits. Muffins. Waffles. Pancakes. Light popcorn. Whole-grain cereals. Flatbread. Olga toast. Pretzels. Breadsticks. Rusks. Low-fat snacks. Low-fat crackers, including oyster, saltine, matzo, keara, animal, and rye. Rice and pasta, including brown rice and pastas that are made with whole wheat. VegetablesAll vegetables. FruitsAll fruits, but limit coconut. Meats and Other Protein SourcesLean, well-trimmed beef, veal, pork, and greco. Chicken and turkey without skin. All fish and shellfish. Wild duck, rabbit, pheasant, and venison. Egg whites or low-cholesterol egg substitutes. Dried beans, peas, lentils, and tofu. Seeds and most nuts. DairyLow-fat or nonfat cheeses, including ricotta, string, and mozzarella. Skim or 1% milk that is liquid, powdered, or evaporated. Buttermilk that is made with low-fat milk. Nonfat or low-fat yogurt. BeveragesMineral water. Diet carbonated beverages. Sweets and DessertsSherbets and fruit ices. Honey, jam, marmalade, jelly, and syrups. Meringues and gelatins. Pure sugar candy, such as hard candy, jelly beans, gumdrops, mints, marshmallows, and small amounts of dark chocolate. Tam food cake. Eat all sweets and desserts in moderation. Fats and OilsNonhydrogenated (trans-free) margarines. Vegetable oils, including soybean, sesame, sunflower, olive, peanut, safflower, corn, canola, and cottonseed. Salad dressings or mayonnaise made with a vegetable oil. Limit added fats and oils that you use for cooking, baking, salads, and as spreads. OtherCocoa powder. Coffee and tea. All seasonings and condiments. The items listed above may not be a complete list of recommended foods or beverages. Contact your dietitian for more options. What foods are not recommended? GrainsBreads that are made with saturated or trans fats, oils, or whole milk. Croissants. Butter rolls. Cheese breads. Sweet rolls. Donuts. Buttered popcorn. Harrison mein noodles. High-fat crackers, such as cheese or butter crackers. Meats and Other Protein SourcesFatty meats, such as hotdogs, short ribs, sausage, spareribs, holt, rib eye roast or steak, and mutton. High-fat deli meats, such as salami and bologna. Caviar. Domestic duck and goose. Organ meats, such as kidney, liver, sweetbreads, and heart. DairyCream, sour cream, cream cheese, and creamed cottage cheese. Whole-milk cheeses, including blue (lorelei), [place] Rafael, Brie, Surinder, Cymraes, Havarti, Georgian, cheddar, Camembert, and Mckenzie. Whole or 2% milk that is liquid, evaporated, or condensed. Whole buttermilk. Cream sauce or high-fat cheese sauce. Yogurt that is made from whole milk. BeveragesRegular sodas and juice drinks with added sugar. Sweets and DessertsFrosting. Pudding. Cookies. Cakes other than tam food cake. Candy that has milk chocolate or white chocolate, hydrogenated fat, butter, coconut, or unknown ingredients. Buttered syrups. Full-fat ice cream or ice cream drinks. Fats and OilsGravy that has suet, meat fat, or shortening. [place] butter, hydrogenated oils, palm oil, coconut oil, palm kernel oil. These can often be found in baked products, candy, fried foods, nondairy creamers, and whipped toppings. Solid fats and shortenings, including holt fat, salt pork, lard, and butter. Nondairy cream substitutes, such as coffee creamers and sour cream substitutes. Salad dressings that are made of unknown oils, cheese, or sour cream. The items listed above may not be a complete list of foods and beverages to avoid. Contact your dietitian for more information. This information is not intended to replace advice given to you by your health care provider. Make sure you discuss any questions you have with your health care provider. Document Released: 10/07/2012 Document Revised: 09/13/2016 Document Reviewed: 09/30/2014 ? 2017 Elsevier Palpitations Introduction A palpitation is the feeling that your heart: ??? Has an uneven (irregular) heartbeat. ??? Is beating faster than normal. ??? Is fluttering. ??? Is skipping a beat. This is usually not a serious problem. In some cases, you may need more medical tests. Follow these instructions at home: ??? Avoid:? Caffeine in coffee, tea, soft drinks, diet pills, and energy drinks. ? Chocolate. ? Alcohol. ??? Do notuse any tobacco products. These include cigarettes, chewing tobacco, and e-cigarettes. If you need help quitting, ask your doctor. ??? Try to reduce your stress. These things may help:? Yoga. ? Meditation. ? Physical activity. Swimming, jogging, and walking are good choices. ? A method that helps you use your mind to control things in your body, like heartbeats (biofeedback). ??? Get plenty of rest and sleep. ??? Take ouly-sui-nkmburv and prescription medicines only as told by your doctor. ??? Keep all follow-up visits as told by your doctor. This is important. Contact a doctor if: ??? Your heartbeat is still fast or uneven after 24 hours. ??? Your palpitations occur more often. Get help right away if: ??? You have chest pain. ??? You feel short of breath. ??? You have a very bad headache. ??? You feel dizzy. ??? You pass out (faint). This information is not intended to replace advice given to you by your health care provider. Make sure you discuss any questions you have with your health care provider. Document Released: 01/15/2009 Document Revised: 09/13/2016 Document Reviewed: 12/22/2015 ? 2017 Elsevier CIGARETTE SMOKING: The facts are clear, cigarette smoking will shorten your life. Smoking can cause many illnesses along the way. As a healthcare provider, we recommend that you stop smoking. Assistance with quitting is available by contacting 0-348-NKCO-NOW. This is a free resource providing counseling, support, and referral. Or you may contact your personal physician. 4 WAYS TO GET AHEAD OF SEPSIS SEPSIS is a MEDICAL EMERGENCY. Time matters! Infections put you and your family at risk for a life-threatening condition called sepsis. Sepsis is the body???s extreme response to an infection. It is life-threatening, and without timely treatment, sepsis can rapidly lead to tissue damage, organ failure, and . Sepsis happens when an infection you already have???in your skin, lungs, urinary tract or somewhere else???triggers a chain reaction throughout your body. 1 PREVENT INFECTIONS Take good care of chronic conditions. Talk to your doctor about getting the recommended vaccines. 2 PRACTICE GOOD HYGIENE Wash your hands frequently. Keep cuts or open sores clean and covered until they are healed. 3 KNOW THE SYMPTOMS Confusion or disorientation Shortness of breath High heart rate Fever, shivering, or feeling very cold Extreme pain or discomfort Clammy or sweaty skin 4 ACT FAST Get medical care IMMEDIATELY if you suspect sepsis or if you have an infection that???s not getting better or is getting worse. To learn more about sepsis and how to prevent infections, visit www.cdc.gov/sepsis. STROKE is an EMERGENCY Every Minute Counts ACT F.A.S.T! FACE ?? Facial droop ?? Uneven smile ARM ?? Arm numbness ?? Arm weakness SPEECH ?? Slurred speech ?? Difficulty speaking or understanding TIME ?? Call 911 and get to the hospital immediately Have the ambulance go to the nearest stroke center. STROKE Risk Factors High blood pressure High cholesterol Heart Disease Diabetes Smoking Heavy alcohol use Physical inactivity and obesity Atrial Fibrillation (irregular heartbeat) Family history of stroke Reminder: Be sure to sign up for the [employer] patient portal, which gives you 12/11 access to your medical information ??? including these discharge instructions ??? using your computer, smartphone, or tablet. Just go to [employer] to get started. Questions? Call . [facility] would like to thank you for allowing us to assist you with your healthcare needs. BRENDA Javier HEATHER MARLENE, (or pharmaceutical sales representative) have received the above patient education materials/instructions and have verbalized understanding: Patient Signature _ Date/Time Patient Health Systems Analyst Signature (if needed) Date/Time Clinician/Hospital Health Systems Analyst Signature (if needed) Date/Time documented in this encounter Plan of Treatment Not on file documented as of this encounter Visit Diagnoses Not on filedocumented in this encounter Care Teams Pipe Coverer And Insulator Relationship Specialty Start Date End Date Roopa Mcfarland FNP [address] [place] [address] PCP - General Nurse Practitioner 01/20/25 documented as of this encounter
--- OUTSIDE RECORDS SUMMARY | 2025-04-16 20:52 | XMS_ITS | Encounter Summary ---
Author Organization [employer] ([place], [place], [place], [place], [place]) Address [address] [place] [address] Care Team Providers Care Acid Splicer Name Role Phone Roopa Mcfarland TORY Primary Care Provider Encounter Details Date Type Department Care Team (Late st Contact Info) Description 06/17/2018 Transcribed Document [facility] Family Medicine [address] [place] [address] ProviderJoann MD [address] [place] [address] Social History Tobacco Use Types Packs/Day Years Used Date Smoking Tobacco: Never Assessed Comments Unknown Sex and Gender Information Value Date Recorded Sex Assigned at Not on file Legal Sex Female 4:43 PM CDT Gender Identity Not on file Sexual Orientation Not on file documented as of this encounter Miscellaneous Notes * Cerner Conversion Note - Joann Tello MD - 06/17/2018 2:50 PM GENOMICS SCIENTIST Nursing Discharge Summary Entered On: 06/17/2018 14:51 EST Performed On: 06/17/2018 14:50 EST by CHRIS MCFARLANE RN Discharge Documentation Patient Disposition, General : Discharge Discharge To : Home with ambulatory/outpatient follow-up Mode Of Departure, General Discharge : Private vehicle Accompanied By, Discharge : Significant other IV Discontinued : Yes Medications Given to Patient : No Personal Belongings With Patient : Yes Prescriptions Given to Patient : No Discharge Instructions Reviewed With, Opportunity For Questions Given : Patient Patient Education Completed : Yes Teaching Method : Explanation Work/school Release Given : Yes CHRIS MCFARLANE RN - 06/17/2018 14:50 EST Electronically signed by Karthik, [facility] Conversion Food Tray Assembler Cerner at 08/09/2022 8:57 AM CDT documented in this encounter Plan of Treatment Not on file documented as of this encounter Visit Diagnoses Not on filedocumented in this encounter Care Teams Acid Splicer Relationship Specialty Start Date End Date Roopa Mcfarland, TORY [address] [place] [address] PCP - General Nurse Practitioner 01/20/25 documented as of this encounter
--- OUTSIDE RECORDS SUMMARY | 2025-04-16 20:52 | XMS_ITS | Clinical Summary ---
Author Organization [facility] Address [address] [facility] [place] [address] Phone Care Team Providers Care Business Department Chair Name Role Phone Unavailable Primary Care Provider Unavailabl e Allergies No known active allergies Medications topiramate (TOPAMAX) 50 mg Oral Tablet Take 50 mg by mouth. 2 Active promethazine (PHENERGAN) 12.5 mg Oral Tablet Take 12.5 mg by mouth. 5 Active LEVOthyroxine (SYNTHROID) 75 mcg Oral Tablet 75 mcg. Acti ve cetirizine (ZYRTEC) 10 mg Oral Tablet Take 10 mg by mouth daily. Active clonazePAM (KLONOPIN) 0.5 mg Oral Tablet Take 0.5 mg by mouth. 1 Active cyproheptadine (PERIACTIN) 4 mg Oral Tablet Take 4 mg by mouth nightly. Active escitalopram oxalate (LEXAPRO) 10 mg Oral Tablet Take 10 mg by mouth 2 times daily. 4 Active hydroxychloroquin e (PLAQUENIL) 200 mg Oral Tablet Take 200 mg by mouth daily. 4 Active hydrOXYzine (ATARAX) 10 mg Oral Tablet TAKE 1 TABLET BY MOUTH 3 TIMES DAILY NEEDED FOR ANXIETY/SLEEP Active calcium polycarbophiL (FIBERCON) 625 mg Oral Tablet Take 1 Tablet by mouth daily. 30 Tablet 1 5 Active lactobacillus rhamnosus, GG, (CULTURELLE) 10 billion cell Oral Capsule Take 1 Capsule by mouth 2 times daily. 60 Capsule 1 5 Active ondansetron (ZOFRAN) 4 mg Oral Tablet Take 1 Tablet by mouth every 4 hours as needed for Nausea. 12 Tablet 1 5 Active simethicone (MYLICON) 80 mg Oral Tablet, Chewable Take 1 Tablet by mouth every 6 hours as needed for Flatulence or Cramping. 30 Tablet 1 5 Active dicyclomine (BENTYL) 20 mg Oral Tablet Take 20 mg by mouth 4 times daily. Active traZODone (DESYREL) 50 mg Oral Tablet Take 50 mg by mouth nightly. for sleep Active rifAXIMin (XIFAXAN) 550 mg Oral Tablet Take 550 mg by mouth 3 times daily. Active Active Problems Problem Noted Date Diagnosed Date Elevated liver enzymes 11/19/2024 Lymphocytic colitis 11/19/2024 Neck pain 11/19/2024 Nausea 11/19/2024 Weight loss 11/03/2024 Overview (11/03/2024): 10/2024 Dr Alex : Weight loss -previously had comprehensive evaluation at including EGD/colonoscopy, capsule endoscopy, stool studies, numerous imaging studies, etc.; recently established care with [facility] for second opinion -had outpatient CBC with eosinophilia (now resolved) and X-TAG comprehensive stool evaluation for infection/inflammation/malabsorption with + for Blastocystis hominis; tx with Flagyl, completed shortly prior to admission to the hospital due to lingering symptoms -repeat stool studies negative, O&P extended negative -fecal electrolytes: osmotic gap 86, inconclusive/indeterminate for osmotic versus secretory etiology -continue fiber, remote CCY, unlikely to be contributing to current presentation and has failed bile acid sequestrants previously -celiac negative, TSH with subclinical hyperthyroidism -continue probiotic -d/c'd PPI -continue Xifaxan and simethicone -MR enterography: no definite abnormal bowel wall thickening or inflammatory changes, no clear findings to suggest inflammatory bowel disease -s/p EGD and flex sig 10/30/24 normal esophagus, gastric bypass and jejunum, NJT placed, normal mucosa in examined colon; pathology results pending -fecal elastase normal; 5-HIAA negative -VIP pending Moderate protein-calorie malnutrition 11/03/2024 Diarrhea of presumed infectious origin Assessment & Plan (11/02/2024 11:50 AM EDT): Rifaximin started Diflucan 150 mg x 1 dose given as patient was having symptoms of vaginitis (has a tendency to develop this with antibiotics) Assessment & Plan (11/01/2024 11:03 AM EDT): Rifaximin started Diflucan 150 mg x 1 dose given as patient is having symptoms of vaginitis (has a tendency to develop this with antibiotics) Assessment & Plan (10/31/2024 11:57 AM EDT): Rifaximin started Diflucan 150 mg x 1 dose given as patient is having symptoms of vaginitis (has a tendency to develop this with antibiotics) Assessment & Plan (10/30/2024 12:15 PM EDT): Rifaximin started Diflucan 150 mg x 1 dose given as patient is having symptoms of vaginitis (has a tendency to develop this with antibiotics) Assessment & Plan (10/29/2024 11:44 AM EDT): Rifaximin started Diflucan 150 mg x 1 dose ordered as patient is having symptoms of vaginitis (has a tendency to develop this with antibiotics) Assessment & Plan (10/28/2024 12:05 PM EDT): Hold antibiotics pending stool studies GI following Assessment & Plan (10/27/2024 11:33 AM EDT): Hold antibiotics pending stool studies GI following Assessment & Plan (10/26/2024 12:17 PM EDT): Hold antibiotics pending stool studies GI was consulted Ileus 10/26/2024 Assessment & Plan (10/26/2024 12:17 PM EDT): As above Patient had multiple abdominal surgeries in the past; adhesions is a possibility Hypothyroidism 10/26/2024 Assessment & Plan (11/02/2024 11:50 AM EDT): Synthroid Assessment & Plan (11/01/2024 11:03 AM EDT): Synthroid Assessment & Plan (10/31/2024 11:57 AM EDT): Synthroid Assessment & Plan (10/30/2024 12:15 PM EDT): Synthroid Assessment & Plan (10/29/2024 11:44 AM EDT): Synthroid Assessment & Plan (10/28/2024 12:05 PM EDT): Synthroid Assessment & Plan (10/27/2024 11:33 AM EDT): Synthroid Assessment & Plan (10/26/2024 12:17 PM EDT): Synthroid Intractable abdominal pain 10/25/2024 Assessment & Plan (11/02/2024 11:50 AM EDT): Symptoms better and stools are more formed overnight CT abdomen showed probable ileus Vs gastroenteritis C.diff - negative Stool cultures - so far negative GI following MR enterography - no acute findings EGD - normal; NJ placed -> Tube feeds Flex Sigmoidoscopy - normal Assessment & Plan (11/01/2024 11:03 AM EDT): Symptoms better and stools are more formed overnight CT abdomen showed probable ileus Vs gastroenteritis C.diff - negative Stool cultures - so far negative GI following MR enterography - no acute findings EGD - normal; NJ placed -> Tube feeds Flex Sigmoidoscopy - normal Itching on back - no lesions suspicious of shingles so far; itching improved nevertheless Assessment & Plan (10/31/2024 11:57 AM EDT): CT abdomen showed probable ileus Vs gastroenteritis C.diff - negative Stool cultures - so far negative GI following MR enterography - no acute findings EGD - normal; NJ placed -> Tube feeds Flex Sigmoidoscopy - normal Itching on back - no lesions suspicious of shingles so far; itching improved nevertheless Assessment & Plan (10/30/2024 12:15 PM EDT): CT abdomen showed probable ileus Vs gastroenteritis C.diff - negative Stool cultures - so far negative GI following MR enterography - no acute findings EGD - normal; NJ placed -> Tube feeds Flex Sigmoidoscopy - normal Itching on back - no lesions suspicious of shingles so far; itching improved nevertheless Assessment & Plan (10/29/2024 11:44 AM EDT): CT abdomen showed probable ileus Vs gastroenteritis C.diff - negative Stool cultures - so far negative GI following MR enterography - no acute findings Itching on back - no lesions suspicious of shingles so far; itching improved nevertheless Assessment & Plan (10/28/2024 12:05 PM EDT): CT abdomen showed probable ileus Vs gastroenteritis C.diff - negative Stool cultures - so far negative GI following MR enterography pending Itching on back - no lesions suspicious of shingles so far Assessment & Plan (10/27/2024 11:33 AM EDT): CT abdomen showed probable ileus Vs gastroenteritis C.diff - negative Stool cultures pending GI following MR enterography ordered Assessment & Plan (10/26/2024 12:17 PM EDT): CT abdomen showed probable ileus Vs gastroenteritis Ordered c.diff, stools cultures Patient reports she was taking Doxycycline for ? Infectious diarrhea Surgical History Surgery Date Site/Laterality Comments HYSTERECTOMY SECTION PACEMAKER INSERTION ORTHOPEDIC SURGERY cervical fx CHOLECYSTECTOMY GASTRIC BYPASS SURGERY Medical History Medical History Date Comments Thyroid disease Supraventricular tachycardia TBI (traumatic brain injury) (HCC) Stroke (HCC) Depression Social History Tobacco Use Types Packs/Day Years Used Date Smoking Tobacco: Never Smokeless Tobacco: Never Tobacco Cessation:Counseling Given: Not Answered Alcohol Use Standard Drinks/Week Comments Never 0 (1 standard drink = 0.6 oz pur e alcohol) [facility] Utilities Answer Date Recorded In the past 12 months has [employer], gas, oil, or water [employer] threatened to shut off services in your home? No 10/28/2024 Overall Financial Resource Strain (CARDIA) Answe r Date Recorded How hard is it for you to pa y for the very basics like food, housing, medical care, and heating? Not hard at all 10/28/2024 PHQ-2 Answer Date Recorded PHQ-2 Total Score 0 10/28/2024 [facility] [place] of Occupat ional Health - Occupational Stress Questionnaire Answer Date Recorded Do you feel stress - tense, restless, nervous, or anxious, or unable to sleep at night because your mind is troubled all the time - these days? Not at all 10/28/2024 Exercise Vital Sign Answer Date Recorde d On average, how many days pe r week do you engage in moderate to strenuous exercise (like a brisk walk)? 7 days 10/28/2024 On average, how many minutes do you engage in exercise at this level? 60 min 10/28/2024 Hunger Vital Sign Answer Date Recorded Within the past 12 months, y ou worried that your food would run out before you got the money to buy more. Never true 10/29/19 25 Within the past 12 months, t he food you bought just didn't last and you didn't have money to get more. Never true 10/28/2024 [facility] Transportation Answer D ate Recorded In the past 12 months, has l ack of reliable transportation kept you from medical appointments, meetings, work or from getting things needed for daily living? No 10/28/2024 Comments No Sex and Gender Information Value Date Recorded Sex Assigned at Female 10/19/2024 7:58 PM EDT Legal Sex Female 11:52 AM EST Gender Identity Not on file Sexual Orientation Not on file Last Filed Vital Signs Vital Sign Reading Time Taken Comments Blood Pressure 116/72 12/17/2024 7:10 AM EDT Pulse 73 11/19/2024 8:44 AM EDT Temperature 36.2 C (97.2 F) 12/17/2024 7:10 AM EDT Respiratory Rate 16 11/03/2024 9:08 AM EDT Oxygen Saturation 100% 11/03/2024 9:08 AM EDT Inhaled Oxygen Concentration - - Weight 59 kg (130 lb) 12/17/2024 7:10 AM EDT Height 160 cm (5' 3 ) 11/19/2024 8:44 AM EDT Body Mass Index 23.03 11/19/2024 8:44 AM EDT Plan of Treatment Health Maintenance Due Date Last Done Comments Annual Wellness Exam 07/06/1987 HPV/Pap Cotest 2014 Hepatitis B Vaccine (2 of 3 - 19+ 3-dose series) 05/20/2017 04/22/2017 Cervical Cancer Screening 12/13/2023 Pap Smear 12/13/2023 12/12/2020 Breast Cancer Screening 2024 COVID-19 Vaccine (2 - 2024-2 6 season) 2024 01/30/2024 Influenza Vaccine (#1) 2024 DTaP/TDaP/Td (2 - Td or Tdap) 10/20/2030 10/20/2020 Meningococcal B Vaccine Aged Out No l onger eligible based on patient's age to complete this topic Pneumococcal Vaccine 0-49 Aged Out No longer eligible based on patient's age to complete this topic Medical Devices Implanted Type Area Laborer Adjustable Steel Joist Device Identifier Shelf Expiration Date Model / Serial / Lot Pacemaker MCCALL [id number] / / Lead MCCALL 2087 / / Lead MCCALL 2087 / / [facility] PPO Advance Directives For more information, please contact: [phone] * Full Code (Latest Code Status on File) Date Activated Date Inactivated Comments 10/25/2024 11:14 PM 11/03/2024 6:51 PM
--- OUTSIDE RECORDS SUMMARY | 2025-04-16 20:52 | XMS_ITS | Encounter Summary ---
Author Organization [employer] ([place], [place], [place], [place], [place]) Address [address] [place] [address] Care Team Providers Care Healthcare Consultant Name Role Phone Roopa Mcfarland TORY Primary Care Provider Encounter Details Date Type Department Care Team (Late st Contact Info) Description 06/17/2018 Transcribed Document [facility] [place] [facility] [place] [address] ProviderJoann MD [address] [place] [id number] Social History Tobacco Use Types Packs/Day Years Used Date Smoking Tobacco: Never Assessed Comments Unknown Sex and Gender Information Value Date Recorded Sex Assigned at Not on file Legal Sex Female 4:43 PM CDT Gender Identity Not on file Sexual Orientation Not on file documented as of this encounter Miscellaneous Notes * Cerner Conversion Note - Joann ProviderMD - 06/17/2018 5:00 AM BIOLOGICAL SCIENCES PROFESSOR Height and Weight, Routine Entered On: 06/17/2018 7:06 EST Performed On: 06/17/2018 5:00 EST by Navid Toney, Patient Radiotelephone Operator Height and Weight, Routine Routine Weight Source : Standing scale Routine Weight Entry Format : [place] Routine Weight, Pounds : 143 lb Routine Weight, Ounces : 1 oz Routine Weight Calculation : 65.03 kg Height Source : Measured Height Entry Format : [place] Height, Feet : 5 ft Height, Inches : 3 Inch Clinical Height : 160.02 cm Body Surface Area (BSA), Routine : 1.68 m2 Body Mass Index (BMI), Routine : 25.4 kg/m2 Navid Toney, Patient Radiotelephone Operator - 06/17/2018 7:06 EST Electronically signed by Karthik, [facility] Conversion Angle Shear Set Up Operator Cerner at 08/09/2022 9:16 AM CDT documented in this encounter Plan of Treatment Not on file documented as of this encounter Visit Diagnoses Not on filedocumented in this encounter Care Teams Healthcare Consultant Relationship Specialty Start Date End Date Roopa Mcfarland FNP [address] [place] [address] PCP - General Nurse Practitioner 01/20/25 documented as of this encounter
--- OUTSIDE RECORDS SUMMARY | 2025-04-16 20:52 | XMS_ITS | Encounter Summary ---
Author Organization [employer] ([place], [place], [place], [place], [place]) Address [address] [place] [address] Care Team Providers Care Surgical Corsetier Name Role Phone Roopa Mcfarland TORY Primary Care Provider Encounter Details Date Type Department Care Team (Late st Contact Info) Description 06/16/2018 Transcribed Document [facility] Radiology [address] [place] [address] Gus Espinal MD [address] [place] [address] Dept. of Emergency Medicine [place] [id number] Social History Tobacco Use Types Packs/Day Years Used Date Smoking Tobacco: Never Assessed Comments Unknown Sex and Gender Information Value Date Recorded Sex Assigned at Not on file Legal Sex Female 4:43 PM CDT Gender Identity Not on file Sexual Orientation Not on file documented as of this encounter Miscellaneous Notes * Cerner Conversion Note - Gus Espinal MD - 06/16/2018 8:00 PM EST Patient: ALEXANDREA GUTIERREZ Age: 32 years Sex: Female : 1985 Associated Diagnoses: Dehydration; Arrhythmia; Palpitations Author: GUS ESPINAL MD-EMR History of Present Illness The patient presents with chest pain and Here for a feeling of an abnormal fluttering or chest pain in chest. Has a history of orthostatic syncope, and arrhythmia, and has had a placement of pacemaker in the past. Has had neurocardiogenic or other related conditions. She experienced palpitations, during travel or driving, continued prompting her evaluation to the emergency room with presyncopal type symptoms, as a note she did not have cardiac or specific left-sided chest pain, and did not have syncope.. The course/duration of symptoms is constant. Radiating pain: none. The character of symptoms is heaviness. The degree at onset was moderate. The degree at maximum was moderate. The degree at present is moderate. The exacerbating factor is none. The relieving factor is none. Review of Systems Additional review of systems information: All other systems reviewed and otherwise negative. Health Status Allergies: Allergic Reactions (Selected) High Tape- Itching.. Medications: (Selected) Documented Medications Documented Coenzyme Q10 100 mg oral capsule: 2 Cap, Oral, Daily, 60 Cap, 0 Refill(s) Corlanor: 5 mg, Oral, BID, 0 Refill(s) Synthroid 75 mcg (0.075 mg) oral tablet: 1 Tab, Oral, Daily, 90 Tab, 0 Refill(s) Topamax 50 mg oral tablet: 1 Tab, Oral, BID, 180 Tab, 0 Refill(s) atenolol 25 mg oral tablet: 1 Tab, Oral, Daily, 0 Refill(s) doxycycline hyclate 50 mg oral capsule: 1 Cap, Oral, Q12H, 0 Refill(s) midodrine: 10 mg, Oral, TID, 0 Refill(s). Past Medical/ Family/ Social History Surgical history: PPM implant. Tonsillectomy. Gastric bypass. Comments: 12/25/2016 13:06 - [facility] NEUMANN PA In 2004 2 C sections. Hysterectomy. Cholecystectomy.. Family history: No family history items have been selected or recorded.. 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 Highest education: Some college Hazardous equipment operation: No Exercise 11/09/2015 Exercise type: Walking Comment: 2-3 miles a day - 11/09/2015 13:46 - LONNIE WANG RN Home/Environment 11/09/2015 Lives with: Children Alcohol abuse in household: No Substance abuse in household: No Smoker in household: No Injuries/Abuse/Neglect in household: No Feels unsafe at home: No Safe place to go: Yes Agency(s)/Others notified: No Family/Friends available to help: Yes Concern for family members at home: No Major illness in household: No Financial concerns: No Concerns over TV/Computer/Game use: No Nutrition/Health 12/25/2016 Type of diet: Regular Caffeine intake amount: 1-2 cups a day. Substance Abuse 11/09/2015 Recreational Drug Use History No Recreational Drug Use Last 12 Months No 06/17/2018 Recreational Drug Use History No Recreational Drug Use Last 12 Months No Tobacco 12/25/2016 Smoking Status Never smoker 06/17/2018 Smoking Status Never (less than 100 in l . Problem list: Active Problems (12) Cardiac pacemaker Delivered by section H/O gastric bypass H/O: hysterectomy History of cholecystectomy Hypothyroid MVP (mitral valve prolapse) MVP (mitral valve prolapse) PAF (paroxysmal atrial fibrillation) SSS (sick sinus syndrome) Tachycardia Thyroid disease . Physical Examination General: Alert, no acute distress. Skin: No rash, normal for ethnicity, Not cyanotic, Head: Normocephalic. Eye: Sclera: not icteric. Cardiovascular Respiratory: Respirations are non-labored. Psychiatric: Cooperative. Medical Decision Making Rationale: We tried IV fluids here, over some time in the emergency dapartment, and also some magnesium. She has continued to feel ill, experiencing some PVCs here on the monitor, and says she does not feel better. After his second round of IV fluids were tried and she said the same, I did contact Dr. Galloway back and asked for further consultation and evaluation/observation in the hospital he agreed.. Impression and Plan Diagnosis Dehydration - Discharge, Emergency medicine, Medical Arrhythmia - Discharge, Emergency medicine, Medical Palpitations - Discharge, Medical Palpitations - Discharge, Emergency medicine, Medical documented in this encounter Plan of Treatment Not on file documented as of this encounter Visit Diagnoses Not on filedocumented in this encounter Care Teams Surgical Corsetier Relationship Specialty Start Date End Date Roopa Mcfarland FNP [address] [place] [address] PCP - General Nurse Practitioner 01/20/25 documented as of this encounter
--- OUTSIDE RECORDS SUMMARY | 2025-04-16 20:52 | XMS_ITS | Encounter Summary ---
Author Organization [employer] ([place], [place], [place], [place], [place]) Address [address] [place] [address] Care Team Providers Care Silverware Washer Name Role Phone Roopa Mcfarland TORY Primary Care Provider Encounter Details Date Type Department Care Team (Late st Contact Info) Description 06/17/2018 Transcribed Document [facility] [place] [address] ProviderJoann MD [address] [place] [address] Social History Tobacco Use Types Packs/Day Years Used Date Smoking Tobacco: Never Assessed Comments Unknown Sex and Gender Information Value Date Recorded Sex Assigned at Not on file Legal Sex Female 4:43 PM CDT Gender Identity Not on file Sexual Orientation Not on file documented as of this encounter Miscellaneous Notes * Cerner Conversion Note - Joann ProviderMD - 06/17/2018 9:58 AM GWOT [place]/ILO INTELLIGENCE SUPPORT [facility] OT Charges Entered On: 06/17/2018 9:58 EST Performed On: 06/17/2018 9:58 EST by MATTHIAS STAHL OTR/Basilia Landry OT Charges Screen For Technical Producer : 1 MATTHIAS STAHL OTR/Basilia - 06/17/2018 9:58 EST Electronically signed by Karthik [facility] Conversion Or Director Daryl at 08/09/2022 9:03 AM CDT documented in this encounter Plan of Treatment Not on file documented as of this encounter Visit Diagnoses Not on filedocumented in this encounter Care Teams Silverware Washer Relationship Specialty Start Date End Date Roopa Mcfarland, TORY [address] [place] [address] PCP - General Nurse Practitioner 01/20/25 documented as of this encounter
--- OUTSIDE RECORDS SUMMARY | 2025-04-16 20:52 | XMS_ITS | Encounter Summary ---
Author Organization [employer] ([place], [place], [place], [place], [place]) Address [address] [place] [address] Care Team Providers Care Oil And Gas Drafter Name Role Phone Roopa Mcfarland TORY Primary Care Provider Encounter Details Date Type Department Care Team (Late st Contact Info) Description 06/17/2018 Transcribed Document [facility] [place] [address] ProviderJoann MD [address] [place] [address] Social History Tobacco Use Types Packs/Day Years Used Date Smoking Tobacco: Never Assessed Comments Unknown Sex and Gender Information Value Date Recorded Sex Assigned at Not on file Legal Sex Female 4:43 PM CDT Gender Identity Not on file Sexual Orientation Not on file documented as of this encounter Miscellaneous Notes * Cerner Conversion Note - Joann ProviderMD - 06/17/2018 1:23 PM WEBLOGIC DEVELOPER Obiee Lead Developer Details Entered On: 06/17/2018 13:25 EST Performed On: 06/17/2018 13:23 EST by CHRIS MCFARLANE RN Order Details Transport Mode Order Detail : Wheelchair Isolation Precautions Order Detail : Standard Precautions Order Detail : 0 IV Order Detail : 1 Oxygen Order Detail : 0 Nurse Collect Order Detail : 0 Lift/Transfer : Independent Central Line Order Detail : No Room Service : Appropriate Arterial Line : No CHRIS MCFARLANE RN - 06/17/2018 13:23 EST documented in this encounter Plan of Treatment Not on file documented as of this encounter Visit Diagnoses Not on filedocumented in this encounter Care Teams Oil And Gas Drafter Relationship Specialty Start Date End Date Roopa Mcfarland FNP [address] [place] [address] PCP - General Nurse Practitioner 01/20/25 documented as of this encounter
--- OUTSIDE RECORDS SUMMARY | 2025-04-16 20:52 | XMS_ITS | Clinical Summary ---
Author Organization [facility] Address [address] [place] [address] Care Team Providers Care Bolt Sawyer Name Role Phone BartoloRoopa MENDOZA Primary Care Provider Allergies Active Allergy Reactions Criticality Noted Date Comments Adhesive Tape Hives,Rash Medium 06/15/2013 Medications topiramate (TOPAMAX) 50 MG tablet Take 1 tablet by mouth 2 (Two) Times a Day. 08/27/2023 Active omeprazole (priLOSEC) 40 MG capsule Take 1 capsule by mouth Daily. 09/07/2023 Active methocarbamol (ROBAXIN) 750 MG tablet Take 1 tablet by mouth As Needed. 09/06/2023 Active meloxicam (MOBIC) 15 MG tablet Take 1 tablet by mouth Daily. 07/18/2023 Active levothyroxine (SYNTHROID, LEVOTHROID) 50 MCG tablet Take 1 tablet by mouth Daily. 10/31/2023 Active hydrOXYzine (ATARAX) 10 MG tablet Take 1 tablet by mouth Every 8 (Eight) Hours As Needed. 11/07/2023 Active hydroxychloroqu ine (PLAQUENIL) 200 MG tablet Take 1 tablet by mouth Daily. 07/18/2023 Active escitalopram (LEXAPRO) 10 MG tablet Take 1 tablet by mouth Daily. 11/21/2023 Active cetirizine (zyrTEC) 10 MG tablet Take 1 tablet by mouth Daily. Active midodrine (PROAMATINE) 10 MG tablet Take 1 tablet by mouth 3 (Three) Times a Day Before Meals. 270 tablet 1 06/15/2024 Active bisoprolol (ZEBeta) 10 MG tablet Take 1 tablet by mouth Daily. 90 tablet 1 07/23/2024 Active cyproheptadine (PERIACTIN) 4 MG tablet Take 1 tablet by mouth 4 (Four) Times a Day As Needed for Allergies. Active promethazine (PHENERGAN) 12.5 MG tablet Take 1 tablet by mouth Every 6 (Six) Hours As Needed for Nausea or Vomiting. Active lubiprostone (AMITIZA) 8 MCG capsule Take 1 capsule by mouth 2 (Two) Times a Day With Meals. Active Magnesium Oxide -Mg Supplement 500 MG capsule Take 1 capsule by mouth Daily. Active cyclobenzaprine (FLEXERIL) 5 MG tablet Take 1 tablet by mouth 3 (Three) Times a Day As Needed for Muscle Spasms. Active dicyclomine (BENTYL) 20 MG tablet Take 1 tablet by mouth Every 6 (Six) Hours. Active ondansetron (ZOFRAN) 8 MG tablet Take 1 tablet by mouth Every 8 (Eight) Hours As Needed for Nausea or Vomiting. Active traZODone (DESYREL) 50 MG tablet Take 1 tablet by mouth Every Night. Active clonazePAM (KlonoPIN) 0.5 MG tablet Take 1 tablet by mouth 2 (Two) Times a Day As Needed for Anxiety. Active doxycycline (VIBRAMYICN) 100 MG tablet Take 1 tablet by mouth 2 (Two) Times a Day. 14 tablet 09/16/2024 Active furosemide (LASIX) 20 MG tablet Take 1 Tablet by mouth once daily as needed. 30 tablet 01/01/2025 Active Active Problems Problem Noted Date Diagnosed Date Sick sinus syndrome due to SA node dysfunction 0 09/04/2024 Elective replacement indicated for pacemaker Pacemaker at end of battery life 08/25/2024 Encounters Date Type Department Care Team Description 04/12/2025 Telephone [facility] [address] [place] [address] [address] [place] [address] AASBO-APPOINTMENT from Last 3 Months Family History Medical History Relation Name Comments Coronary artery disease Father Diabetes Father Heart attack Father Heart disease Father Hyperlipidemia Father Hypertension Father Cervical cancer Half-Sister Cervical cancer Maternal Grandmother Diabetes Maternal Grandmother Hyperlipidemia Mother Hypertension Mother Osteoporosis Mother Rheum arthritis Mother Heart attack Other UNCLE Sudden Other UNCLE Breast cancer Paternal Grandmother Cervical cancer Paternal Grandmother Ovarian cancer Paternal Grandmother Relation Name Status Comments Father Half-Sister Alive Maternal Grandmother Mother Other Paternal Grandmother Social History Tobacco Use Types Packs/Day Years Used Date Smoking Tobacco: Never Smokeless Tobacco: Never Tobacco Cessation:Counseling Given: Not Answered Alcohol Use Standard Drinks/Week Comments Yes 0 [...] Orientation Straight 08/24/2024 4: 29 PM EDT Last Filed Vital Signs Vital Sign Reading Time Taken Comments Blood Pressure 112/66 09/04/2024 3:50 PM EDT post ambulation Pulse 91 09/04/2024 3:50 PM EDT Temperature 37 C (98.6 F) 09/04/2024 12:22 PM EDT Respiratory Rate 8 09/04/2024 2:44 PM EDT Oxygen Saturation 99% 09/04/2024 3:5 0 PM EDT Inhaled Oxygen Concentration - - Weight 58.3 kg (128 lb 9.6 oz) 09/04/2024 12:22 PM EDT Height 157.5 cm (5' 2 ) 09/04/2024 12:2 2 PM EDT Body Mass Index 23.52 09/04/2024 12:22 PM EDT Plan of Treatment Upcoming Encounters Date Type Department Care Team (Late st Contact Info) Description 04/20/2025 3:45 PM EST Office Visit [facility] [address] [facility] [address] [place] [phone] Yury Suarez DO [address] [facility] [address] [place] [address] Health Maintenance Due Date Last Done Comments ANNUAL PHYSICAL 04/29/2019 MAMMOGRAM 2024 INFLUENZA VACCINE 11/20/2024 02/13/2024, , 01/20/2023, Additional history exists Annual Gynecologic Pelvic and Breast Exam 12/02/2024 12/02/2023 TDAP/TD VACCINES (2 - Td or Tdap) 10/20/2030 10/20/2020 HEPATITIS C SCREENING Completed 05/27/2024 Pneumococcal Vaccine 0-49 Aged Out No longer eligible based on patient's age to complete this topic Medical Devices Implanted Type Area Latent Fingerprint Examiner Device Identifier Shelf Expiration Date Model / Serial / Lot Gen Pm Assurity Mri Dr Medina [id number] - [id number] - [id number] Implanted:Qty : 1 on 09/04/2024 by Yury Suarez DO at [facility] Pacemaker N/A: Chest [employer] [id number] / [id number] / Insurance Doc[employer]per[employer] CROSS Advance Directives * CPR (Attempt to Resuscitate) (Latest Code Status on File) Date Activated Date Inactivated Comments 09/04/2024 3:18 PM 09/04/2024 6:34 PM Question Answer Comments Code Status (Patient has no pulse and is not breathing): CPR (Attempt to Resuscitate) Medical Interventions (Patie nt has pulse or is breathing): Full Support Level Of Support Discussed With: Patient Care Teams Bolt Sawyer Relationship Specialty Start Date End Date Roopa Mcfarland APRN [address] [place] [address] PCP - General Nurse Practitioner 06/03/23
--- OUTSIDE RECORDS SUMMARY | 2025-04-16 20:52 | XMS_ITS | Encounter Summary ---
Author Organization [employer] ([place], [place], [place], [place], [place]) Address [address] [place] [address] Care Team Providers Care [employer]p [employer] Name Role Phone Christian Mcfarlandjeanette Delgadoe TORY Primary Care Provider Encounter Details Date Type Department Care Team (Late st Contact Info) Description 06/17/2018 Transcribed Document [facility] Family Medicine [facility] [place] [address] ProviderJoann MD [address] [place] [address] Social History Tobacco Use Types Packs/Day Years Used Date Smoking Tobacco: Never Assessed Comments Unknown Sex and Gender Information Value Date Recorded Sex Assigned at Not on file Legal Sex Female 4:43 PM CDT Gender Identity Not on file Sexual Orientation Not on file documented as of this encounter Miscellaneous Notes * Cerner Conversion Note - Joann ProviderMD - 06/17/2018 4:07 PM SMALL BUSINESS DIRECTOR [place] [address], [place] [address] Patient Copy Patient Information: Name: DELLA GUTIERREZ Current Date: 06/17/2018 16:07:42 : 1985 Patient Address: [address] [address] Patient Attending Physician: JOSE ALEJANDRO PEDROZA MD-CHUCKY Primary Care Provider: MARTI ORELLANA (REF) Primary Care Provider Discharge Diagnosis: Palpitations Weight on Admission: 135 lb, 0 oz Weight at Discharge: 143 lb, 1 oz Comment: Follow-up Instructions: With: Address: When: JOSE ALEJANDRO PEDROZA [address] [place] [address] Business (1) Within 2 to 4 weeks [...] What foods can I eat? GrainsBreads, including Japanese, white, ángel, wheat, raisin, rye, oatmeal, and Mauritian. Tortillas that are neither fried nor made with lard or trans fat. Low-fat rolls, including hotdog and hamburger buns and [place] Zealander muffins. Biscuits. Muffins. Waffles. Pancakes. Light popcorn. [...] cottage cheese. Whole-milk cheeses, including blue (lorelei), [place] Rafael, Brie, Surinder, Slovak, Havarti, Bruneian, cheddar, Camembert, and [place]. Whole or 2% milk that is liquid, [...] that has suet, meat fat, or shortening. [place] butter, hydrogenated oils, palm oil, coconut oil, [...] plenty of rest and sleep. ??? Take tlhv-[id number]-hsreetw and prescription medicines only as told by [...] Assistance with quitting is available by contacting 9-355-IKDT-NOW. This is a free resource providing counseling, [...] Be sure to sign up for the [facility] patient portal, which gives you 12/11 access to your medical information ??? including these discharge instructions ??? using your computer, smartphone, or tablet. Just go to [employer] to get started. Questions? Call . [facility] would like to thank you for allowing us to assist you with your healthcare needs. BRENDA Javier HEATHER MARLENE, (or sales utility representative) have received the above patient education materials/instructions and have verbalized understanding: Patient Signature _ Date/Time Patient Promotions Intern Signature (if needed) Date/Time Clinician/Hospital Promotions Intern Signature (if needed) Date/Time documented in this encounter Plan of Treatment Not on file documented as of this encounter Visit Diagnoses Not on filedocumented in this encounter Care Teams [employer] Relationship Specialty Start Date End Date Roopa Mcfarland FNP [address] [place] [address] PCP - General Nurse Practitioner 01/20/25 documented as of this encounter
--- OUTSIDE RECORDS SUMMARY | 2025-04-16 20:52 | XMS_ITS | Encounter Summary ---
Author Organization [facility] Address [address] [place] [address] Care Team Providers Care Public Relations Counselor Name Role Phone Roopa Mcfarland MENDOZA Primary Care Provider Reason for Visit * Reason Onset Date Comments DR. SUAREZ-APPOINTMENT 04/12/2025 Encounter Details Date Type Department Care Team (Late st Contact Info) Description 04/12/2025 Telephone [facility] [address] [facility] [address] [place] [phone] Yury Suarez, DO [address] [facility] [address] [place] [address] DR. SUAREZ-APPOINTMENT Social History Tobacco Use Types Packs/Day Years [...] PM EDT documented as of this encounter Miscellaneous Notes * Telephone Encounter - Kaley Lares RegSched Rep - 04/12/2025 3:11 PM EST Spoke with patient and rescheduled patient. * Telephone Encounter - Aroldo Jeffers RegSched Rep - 04/12/2025 2:49 PM EST PATIENT RETURNED CALL TO KALEY AND WARMED TRANSFERRED TO THE OFFICE * Telephone Encounter - Kaley Lares RegSched Rep - 04/12/2025 2:30 PM EST Lvm for patient to return call. * Telephone Encounter - Aroldo Jeffers RegSched Rep - 04/12/2025 12:09 PM EST Name: Alexandrea Long Relationship: Self Best Callback Number: [phone] Incoming call to the Hub, requesting to Reschedule their STJ appointment on 01.04.25. Per Hub workflow, further review is needed before the task can be completed. Result of Call: Please reach out to the patient to reschedule documented in this encounter Plan of Treatment Upcoming Encounters Date Type Department Care Team (Late st Contact Info) Description 04/20/2025 3:45 PM EST Office Visit [facility] [address] [facility] [address] [place] [phone] Yury Suarez, DO [address] [facility] [address] [facility] [address] [place] [id number] documented as of this encounter Visit Diagnoses Not on filedocumented in this encounter Care Teams Public Relations Counselor Relationship Specialty Start Date End Date Roopa Mcfarland APRN [address] [place] [address] PCP - General Nurse Practitioner 06/03/23 documented as of this encounter
--- OUTSIDE RECORDS SUMMARY | 2025-04-16 20:52 | XMS_ITS | Encounter Summary ---
Author Organization [employer] ([place], [place], [place], [place], [place]) Address [address] [place] [address] Care Team Providers Care Hog Raiser Name Role Phone Roopa Mcfarland TORY Primary Care Provider Encounter Details Date Type Department Care Team (Late st Contact Info) Description 06/17/2018 Transcribed Document [facility] [place] [address] ProviderJoann MD [address] [place] [address] Social History Tobacco Use Types Packs/Day Years Used Date Smoking Tobacco: Never Assessed Comments Unknown Sex and Gender Information Value Date Recorded Sex Assigned at Not on file Legal Sex Female 4:43 PM CDT Gender Identity Not on file Sexual Orientation Not on file documented as of this encounter Miscellaneous Notes * Cerner Conversion Note - Historical ProviderMD - 06/17/2018 8:35 AM POULTRY FIELD SERVICE TECHNICIAN [facility] Charges Entered On: 06/17/2018 13:55 EST Performed On: 06/17/2018 8:35 EST by MARIE EDWARDS PT [facility] Physical Therapy Screen : 1 MARIE EDWARDS PT - 06/17/2018 13:54 EST documented in this encounter Plan of Treatment Not on file documented as of this encounter Visit Diagnoses Not on filedocumented in this encounter Care Teams Hog Raiser Relationship Specialty Start Date End Date Roopa Mcfarland, TORY [address] [place] [address] PCP - General Nurse Practitioner 01/20/25 documented as of this encounter
--- OUTSIDE RECORDS SUMMARY | 2025-04-16 20:52 | XMS_ITS | Encounter Summary ---
Author Organization [email or web address] ([place], [place], [place], [place], [place]) Address [address] [place] [address] Care Team Providers Care Extension Service Supervisor Name Role Phone Roopa Mcfarland TORY Primary Care Provider Encounter Details Date Type Department Care Team (Late st Contact Info) Description 06/17/2018 Transcribed Document [facility] Family Medicine [facility] [place] [address] ProviderJoann MD [address] [place] [address] Social History Tobacco Use Types Packs/Day Years Used Date Smoking Tobacco: Never Assessed Comments Unknown Sex and Gender Information Value Date Recorded Sex Assigned at Not on file Legal Sex Female 4:43 PM CDT Gender Identity Not on file Sexual Orientation Not on file documented as of this encounter Miscellaneous Notes * Cerner Conversion Note - Joann Tello MD - 06/17/2018 4:08 PM LIMEHOUSE WORKER Patient Education Materials Follows:Medicine Palpitations Introduction A palpitation is the feeling [...] plenty of rest and sleep. ??? Take [id number] and prescription medicines only as told by [...] Revised: 09/13/2016 Document Reviewed: 12/22/2015 ? 2017 [employer] Nutrition Heart-Healthy Eating Plan Introduction Heart-healthy meal planning [...] What foods can I eat? GrainsBreads, including Danish, white, ángel, wheat, raisin, rye, oatmeal, and Yakut. Tortillas that are neither fried nor made with lard or trans fat. Low-fat rolls, including hotdog and hamburger buns and Togolese muffins. Biscuits. Muffins. Waffles. Pancakes. Light popcorn. [...] cottage cheese. Whole-milk cheeses, including blue (lorelei), [place] Rafael, Brie, Surinder, South Korean, Havarti, Sri Lankan, cheddar, Camembert, and [place]. Whole or 2% milk that is liquid, [...] that has suet, meat fat, or shortening. [place] butter, hydrogenated oils, palm oil, coconut oil, [...] 09/13/2016 Document Reviewed: 09/30/2014 ? 2017 Elsevier Electronically signed by Christiano Angeles Conversion Event Marketing Specialist Cerner at 08/09/2022 8:55 AM CDT documented in this encounter Plan of Treatment Not on file documented as of this encounter Visit Diagnoses Not on filedocumented in this encounter Care Teams Extension Service Supervisor Relationship Specialty Start Date End Date Roopa Mcfarland FNP [address] [place] [address] PCP - General Nurse Practitioner 01/20/25 documented as of this encounter
--- OUTSIDE RECORDS SUMMARY | 2025-04-16 20:52 | XMS_ITS | Encounter Summary ---
Author Organization [employer] ([place], [place], [place], [place], [place]) Address [address] [place] [address] Care Team Providers Care Italian Tutor Name Role Phone Roopa Mcfarland TORY Primary Care Provider Encounter Details Date Type Department Care Team (Late st Contact Info) Description 06/17/2018 Transcribed Document [facility] Family [facility] [place] [address] ProviderJoann MD [address] [place] [address] Social History Tobacco Use Types Packs/Day Years Used Date Smoking Tobacco: Never Assessed Comments Unknown Sex and Gender Information Value Date Recorded Sex Assigned at Not on file Legal Sex Female 4:43 PM CDT Gender Identity Not on file Sexual Orientation Not on file documented as of this encounter Miscellaneous Notes * Cerner Conversion Note - Joann ProviderMD - 06/17/2018 2:00 AM BUDGET COORDINATOR Livestock Haulier Details Entered On: 06/17/2018 5:32 EST Performed On: 06/17/2018 2:00 EST by MARYCRUZ FLOR RN Order Details Transport Mode Order Detail [...] EST Electronically signed by Christiano Angeles Conversion Sterile Supply Technician Cerner at 08/09/2022 8:56 AM CDT documented in this encounter Plan of Treatment Not on file documented as of this encounter Visit Diagnoses Not on filedocumented in this encounter Care Teams Italian Tutor Relationship Specialty Start Date End Date Roopa Mcfarland FNP [address] [place] [address] PCP - General Nurse Practitioner 01/20/25 documented as of this encounter
--- OUTSIDE RECORDS SUMMARY | 2025-04-16 20:52 | XMS_ITS | Clinical Summary ---
Author Organization [facility] Address [address] [place] [address] Care Team Providers Care Digital Commentator Name Role Phone Roopa Mcfarland Ro [employer] Primary Care Provider [phone] Edelmira Storey LAB[employer] Unavailable Dragan Brown LABORER [employer]AR[employer] Unavailable Willie Brown LABOR[employer] Unavailable [phone] Allergies Active Allergy Reactions Criticality Noted Date Comments Other Other - please document in the comment field Low 10/24/2020 Tape adhesives cause blisters Wound Dressing Adhesive Hives,Unknown - Patient states they do not know rxn details Medium 06/15/2013 Medications clonazePAM (KlonoPIN) 0.5 MG tablet 1 Active midodrine (Proamatine) 10 MG tablet 1 tablet in the morning and 1 tablet at noon and 1 tablet in the evening. 1 Active topiramate 50 MG tablet 2 Active bisoprolol (Zebeta) 10 MG tablet Take 1 tablet by mouth 1 (one) time each day. 5 Active cyclobenzaprine (Flexeril) 5 MG tablet 4 Active dicyclomine (Bentyl) 20 MG tablet Take 1 tablet 4 times a day by oral route as needed for 30 days, for diarrhea, abdominal pain. 5 Active escitalopram (Lexapro) 10 MG tablet Take 1 tablet by mouth 2 (two) times a day. 4 Active furosemide (Lasix) 20 MG tablet Take 1 tablet by mouth daily as needed. 5 Active hydrOXYzine HCl (Atarax) 10 MG tablet Take 1 tablet by mouth 3 (three) times a day as needed. 4 Active omeprazole (PriLOSEC) [address] capsule Take 1 capsule twice a day by oral route for 90 days. 4 Active ondansetron (Zofran) 8 MG tablet Take 1 tablet twice a day by oral route as needed for 15 days, for nausea. 5 Active traZODone (Desyrel) 50 MG tablet Take 1 tablet every day by oral route at bedtime for 7 days. 5 Active Magnesium Oxide, Laxative, 500 MG tabletIndications :Constipation, unspecified constipation type Take 500mg one to two times daily for constipation. If causes diarrhea, decrease to 1/2 tablet daily. 30 tablet 3 5 Active promethazine (Phenergan) 12.5 MG tablet Take 1 tablet 4 times a day by mouth as needed for 10 days, for nausea. 5 Active levothyroxine (Synthroid, Levoxyl) 75 MCG tablet Take 1 tablet by mouth every morning. 5 Active methocarbamol (Robaxin) 500 MG tablet Take 1.5 tablets by mouth 3 (three) times a day as needed for muscle spasms. Active Active Problems Problem Noted Date Diagnosed Date Iron deficiency anemia 07/13/2024 Deviated nasal septum 12/12/2021 Overview (12/12/2021): Added automatically from request for surgery [id number] Tongue lesion 06/22/2021 Hypertrophy of lingual tonsil 06/22/2021 Left-sided weakness 01/31/2021 TIA (transient ischemic attack) 11/17/2020 Acute blood loss anemia 10/25/2020 Overview (10/25/2020): H&H 9.1/.3 - monitor Closed fracture of cervical vertebra 10/24/2020 Overview (10/29/2020): ORS consulted stat MR c-spine on 10/24 revealed cord contusion at C6-7 and C6 fracture No bending, twisting, lifting >10 lbs until follow up with spine team C-Collar on at all times, additional Ccollar provided for showering OZZIE Evans Orthopaedic Spine Surgery on 11/18/[address] 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 Follow up OMS in one week Nasal bone fracture 10/24/2020 Overview (10/29/2020): OMS consult No acute surgical intervention Sinus precautions Chlorohexidine rinses bid Keep wounds moist and clean: free of crusting, dry blood, and debris Afrin and ocean nasal spray prn nose congestion and bleeding Recommend Peridex Mouth Rinses BID x 14 days Follow up 1 week Hypotension 10/24/2020 Overview (10/28/2020): resolved Family history of coronary arteriosclerosis 06/20 Sinoatrial node dysfunction 08/03/2014 Edema 07/09/2014 Presence of cardiac pacemaker 06/15/2013 Sick sinus syndrome Overview (10/25/2020): Identified In elementary school, s/p pacemaker placement - cardiology consulted for OR clearance - contact post-op for pacemaker adjustment HTN (hypertension) Resolved Problems Problem Noted Date Diagnosed Date Resolved Date Diarrhea 05/27/2024 01/10/2025 Nasal obstruction 12/12/2021 01/10/2025 Overview (12/12/2021): Added automatically from request for surgery [id number] Immunizations Immunization Administration Dates Next Due Hep B, Unspecified 04/22/2017 Influenza, Unspecified 01/30/2024,01/20/2023,04/2021 SARS-CoV-2, Unspecified 01/30/2024 Tdap 10/20/2020 Family History Medical History Relation Name Comments Arthritis Father Dad Coronary artery disease Father Dad Hypertension Father Dad Hypertension, benign Father Dad Arthritis Maternal Grandfather Derrick Cancer Maternal Grandfather Derrick Hypertension, benign Maternal Grandfather Derrick Arthritis Maternal Grandmother Melissa Cancer Maternal Grandmother Melissa Diabetes Maternal Grandmother Melissa Hypertension, benign Maternal Grandmother Melissa Arthritis Mother Momma Hyperlipidemia Mother Momma Hypertension, benign Mother Momma Thyroid disease Mother Momma Diabetes Paternal Grandmother Lorene Relation Name Status Comments Father Dad Maternal Grandfather Derrick Maternal Grandmother Melissa Mother Momma Paternal Grandmother Lorene Social History Tobacco Use Types Packs/Day Years Used Date Smoking Tobacco: Never Smokeless Tobacco: Never Tobacco Cessation:Counseling Given: Yes Alcohol Use Standard Drinks/Week Comments Yes 0 (1 standard drink = 0.6 oz pur e alcohol) Just occasionally PHQ-2 Answer Date Recorded Patient Health Questionnaire-2 Score 0 08/10/2024 PHQ-9 Answer Date Recorded Patient Health Questionnaire-9 Score 4 08/10/2024 Comments No Sex and Gender Information Value Date Recorded Sex Assigned at Female 04/08/2021 1:46 PM EST Legal Sex Female 8:53 PM EDT Gender Identity Female 04/08/2021 1:46 PM EST Sexual Orientation Not on file Last Filed Vital Signs Vital Sign Reading Time Taken Comments Blood Pressure 108/72 08/20/2024 8:35 AM EDT Pulse 79 08/20/2024 8:35 AM EDT Temperature 36.6 C (97.8 F) 08/20/2024 8:11 AM EDT Respiratory Rate 16 08/07/2024 3:04 PM EDT Oxygen Saturation 100% 08/10/2024 7:55 AM EDT Inhaled Oxygen Concentration - - Weight 58.1 kg (128 lb 1.4 oz) 08/20/2024 8:11 A M EDT Height 157.5 cm (5' 2 ) 08/20/2024 8:11 AM EDT Body Mass Index 23.43 08/20/2024 8:11 AM EDT Plan of Treatment Health Maintenance Due Date Last Done Comments [facility]-Infant/Child/Adol SDOH Screenings 1984 [facility]-Varicella Vaccines (1 of 2 - 13+ 2-dose series) 1997 [facility]- SDOH Screenings 2002 [facility]-Adult SDOH Screenings 2002 [facility]-Pneumococcal Vaccine: Pediatrics (0 to 5 Years) and At-Risk Patients (6 to 49 Years) (1 of 2 - PCV) 07/06/2003 [facility]-Hepatitis B Vaccines (2 of 3 - 19+ 3-dose series) 05/20/2017 04/22/2017 [id number] Vaccine (3 - 2024- season) 2024 01/30/2024, 01/03/2021 [facility]-Influenza Vaccine (#1) 12/21/202401/29, 01/20/2023, 02/20/2022 [facility]-Depression Screening 08/10/2025 025, 08/10/2024 [facility]-DTaP,Tdap,and Td Vaccines (2 - Td or Tdap) 10/20/2030 10/20/2020 [facility]-Zoster Vaccines (1 of 2) 2034 [facility]-Diabetes: Hemoglobin A1C Discontinued 03/2021, 11/17/2020 [facility]-HIV Screening Completed 05/27/2024, 11/17/2020, 10/23/2020 [facility]-Hepatitis C Screening Completed 2024, 11/17/2020, 10/23/2020 HPV Vaccines (No Doses Required) Completed [facility]-HIB Vaccines Aged Out No longer e ligible based on patient's age to complete this topic [facility]-Hepatitis A Vaccines Aged Out No longer eligible based on patient's age to complete this topic [facility]-IPV Vaccines Aged Out No longer e ligible based on patient's age to complete this topic [facility]-Rotavirus Vaccines Aged Out No lo nger eligible based on patient's age to complete this topic Medical Devices Implanted Type Area Shut Off Worker Device Identifier Shelf Expiration Date Model / Serial / Lot St Brian Rv Lead [id number] Implanted:07/06 (Quantity not on file) Lead Chest [employer] 52 / [id number] / [employer] Brian Ra Lead /46-2012 Implanted:07/06 (Quantity not on file) Lead Chest [employer] /46 / [id number] / St Brian Pacemaker-2016 Implanted:12/19 (Quantity not on file) Pacemaker Chest [employer] [id number] / [id number] / Compression Pin, 12mm Implanted:Qty: 2 by Min Rossi MD Neck [employer] Spine [employer] [place] -[id number] / / One Level Plate, 14mm Neck [employer] -[id number] / / Self Drilling Screw 14mm Implanted:Qty: 5 Neck [employer] -[id number] / / Plate Anterior Cervical System Threaded Neck [employer]ine [employer] -[id number] / / Graft Tiss T68 Preservon - [id number] Implanted:Qty: 1 on 10/25/2020 by Min Rossi MD at [facility]-[id number] 07/14/2025 [id number] / [id number] / [id number] Compression Pin, 12mm - [id number] Implanted:Qty: 2 on 10/25/2020 [facility]-[id number] / / Self Drilling Screw 14mm - [id number] Implanted:Qty: 5 on 10/25/2020 by [facility] -[id number] / / Procedures Procedure Name Priority Date/Time Associated Diagnosis Comments HEPATITIS C ANTIBODY - ED W/REFLEX TO HCV QUANT PCR STAT 05/27/2024 3:16 PM EST ED HIV 1/2 ANTIBODY/ANTIGEN SCREEN WITH REFLEX TO HIV I/II DIFFERENTIATION STAT 05/27/2024 3:16 PM EST HEMOGLOBIN A1C Routine 01/31/2021 5:45 PM EDT from Last 3 Months or Most Recently Relevant to Health Maintenance Results * ED HIV 1/2 Antibody/Antigen Screen w/Reflex to HIV 1/2 Differentiation (05/27/2024 3:16 PM EST) [facility] HIV 1 & 2 Antibody/Antigen Screen Non Reactive Non Reactive 05/27/2024 4:43 PM EST [facility] Comment:Screening for HIV 1 & 2 antibodies, and P24 antigen is NONREACTIVE. No confirmatory testing is required. Blood Venous blood specimen / Unknown Venipuncture / Unknown 05/27/2024 3:16 PM EST 05/27/2024 4:03 PM EST Flip Do MD LAB BLOOD ORDERABLES Final Res ult Performing Organization Address [facility] Co de Phone Number [facility] [address] [place] [address] * Hepatitis C Antibody - ED (05/27/2024 3:16 PM EST) Pathologist [facility] Hepatitis C Antibody Negative Negative 05/27/2024 4:43 PM EST [facility] Blood Venous blood specimen / Unknown Venipuncture / Unknown 05/27/2024 3:16 PM EST 05/27/2024 4:03 PM EST us Flip Do MD LAB BLOOD ORDERABLES Final Res ult Performing Organization Address [facility]/ZIP Co de Phone Number [facility] [address] [place] [address] * (ABNORMAL) Hemoglobin A1c (01/31/2021 5:45 PM EDT) Hemoglobin A1c 5.7(H) <5.7 % 01/31/2021 6:33 PM EDT [facility] Blood Venous blood specimen / Unknown Venipuncture / Unknown 01/31/2021 5:45 PM EDT 01/31/2021 5:56 PM EDT Narrative [facility] - 01/31/2021 6:33 PM EDT HA1C Interpretive Data: Diagnosis of Diabetes: Diabetic > or = 6.5% Pre-diabetic 5.7 to 6.4% Non-diabetic < or = 5.6% Glycemic Targets for Type I and Type II Diabetics: Non- Adults <7.0% Adults <6.0% Children and Adolescents <7.5% Source: [place] [employer]. Standards of medical care in diabetes,2017. Diabetes Care.2017:40 (suppl 1):S1-S135. HbA1c assay performed by an ion-exchange chromatography method that is certified traceable to the DCCT. Huma Araujo DO LAB BLOOD ORDERABLES Final Res ult [facility] [address] [place] [phone] from Last 3 Months or Most Recently Relevant to Health Maintenance [place] [address] [place] [address] Advance Directives * Full Code (Latest Code Status on File) Date Activated Date Inactivated Comments 11/17/2020 4:30 PM 11/18/2020 7:45 PM Question Answer Comments Patient has decision-making capacity? Yes * Full Code Date Activated Date Inactivated Comments 10/24/2020 2:33 AM 10/29/2020 2:51 PM Question Answer Comments Patient has decision-making capacity? Yes Care Teams Digital Commentator Relationship Specialty Start Date End Date Roopa Mcfarland APRN [address] [place] [id number] PCP - General 05/27/24 Edelmira Storey APRN [address] [place] [address] [id number] Family Medicine 05/27/24 Dragan Brown, [employer] [address] [place] [id number] Family Medicine 01/31/21 Willie Brown, [employer] [place] [address] 11/17/20
--- OUTSIDE RECORDS SUMMARY | 2025-04-16 20:52 | XMS_ITS | Encounter Summary ---
Author Organization [employer] ([place], [place], [place], [place], [place]) Address [address] [place] [address] Care Team Providers Care Supervisor Wound Name Role Phone Roopa Mcfarland TORY Primary Care Provider Encounter Details Date Type Department Care Team (Late st Contact Info) Description 06/17/2018 Transcribed Document [facility] [place] [facility] [place] [address] ProviderJoann MD [address] [place] [id number] Social History Tobacco Use Types Packs/Day Years Used Date Smoking Tobacco: Never Assessed Comments Unknown Sex and Gender Information Value Date Recorded Sex Assigned at Not on file Legal Sex Female 4:43 PM CDT Gender Identity Not on file Sexual Orientation Not on file documented as of this encounter Miscellaneous Notes * Cerner Conversion Note - Joann ProviderMD - 06/17/2018 8:35 AM [employer] Therapy Screen, PT Entered On: 06/17/2018 13:55 EST Performed On: 06/17/2018 8:35 EST by MARIE EDWARDS PT Therapy Screen, PT Medical Chart Reviewed : Yes Person Providing Information : Family, Nurse, Patient Screen Completed : Yes Recommendation for Evaluation, PT : None Recommendations Upon Discharge : None Additional Therapy Screen Comment : Pt denied need for acute skilled PT services. She is up ad mahamed and at baseline mobility. MARIE EDWARDS, PT - 06/17/2018 13:54 EST documented in this encounter Plan of Treatment Not on file documented as of this encounter Visit Diagnoses Not on filedocumented in this encounter Care Teams Supervisor Wound Relationship Specialty Start Date End Date Roopa Mcfarland FNP [address] [place] [address] PCP - General Nurse Practitioner 01/20/25 documented as of this encounter
--- OUTSIDE RECORDS SUMMARY | 2025-04-16 20:53 | XMS_ITS | Encounter Summary ---
Author Organization [employer] ([place], [place], [place], [place], [place]) Address [address] [place] [address] Care Team Providers Care Marine Steam Fitter Helper Name Role Phone Roopa Mcfarland TORY Primary Care Provider Encounter Details Date Type Department Care Team (Late st Contact Info) Description 10/04/2018 Transcribed Document [facility] [place] [address] ProviderJoann MD [address] [place] [address] [phone] Social History Tobacco Use Types Packs/Day Years Used Date Smoking Tobacco: Never Assessed Comments Unknown Sex and Gender Information Value Date Recorded Sex Assigned at Not on file Legal Sex Female 4:43 PM CDT Gender Identity Not on file Sexual Orientation Not on file documented as of this encounter Miscellaneous Notes * Cerner Conversion Note - Joann Tello MD - 10/04/2018 9:20 AM CDT Therapy Screen, PT Entered On: 10/04/2018 10:18 EDT Performed On: 10/04/2018 9:20 EDT by MARIE EDWARDS PT Therapy Screen, PT Medical Chart Reviewed : Yes Person Providing Information : Nurse, Patient, Significant other(s) Screen Completed : Yes Recommendation for Evaluation, PT : None Recommendations Upon Discharge : None Additional Therapy Screen Comment : Patient denies need for acute PT services at this time. Reports she is still at her baseline with mobility and has been up ad mahamed. States she's been a little dizzy from the low blood pressure- so she has someone with her when she gets up just in case. MARIE EDWARDS, PT - 10/04/2018 10:16 EDT documented in this encounter Plan of Treatment Not on file documented as of this encounter Visit Diagnoses Not on filedocumented in this encounter Care Teams Marine Steam Fitter Helper Relationship Specialty Start Date End Date Roopa Mcfarland, TORY [address] [place] [address] PCP - General Nurse Practitioner 01/20/25 documented as of this encounter
--- OUTSIDE RECORDS SUMMARY | 2025-04-16 20:53 | XMS_ITS | Encounter Summary ---
Author Organization [employer] ([place], [place], [place], [place], [place]) Address [address] [place] [address] Care Team Providers Care Machine Maintenance Supervisor Name Role Phone Roopa Mcfarland TORY Primary Care Provider Encounter Details Date Type Department Care Team (Late st Contact Info) Description 10/04/2018 Transcribed Document [facility] [place] [facility] [place] [address] ProviderJoann MD [address] [place] [address] [phone] Social History Tobacco Use Types Packs/Day Years Used Date Smoking Tobacco: Never Assessed Comments Unknown Sex and Gender Information Value Date Recorded Sex Assigned at Not on file Legal Sex Female 4:43 PM CDT Gender Identity Not on file Sexual Orientation Not on file documented as of this encounter Miscellaneous Notes * Cerner Conversion Note - Joann ProviderMD - 10/04/2018 9:24 AM CDT Therapy Screen, OT Entered On: 10/04/2018 11:24 EDT Performed On: 10/04/2018 9:24 EDT by MATTHIAS STAHL OTR/Basilia Therapy Screen, OT Medical Chart Reviewed : Yes Person Providing Information : Patient Screen Completed : Yes Recommendations for Evaluation OT : Do not recommend Occupational Therapy evaluation Therapy Screen Findings, OT : Patient at functional baseline Recommendations Upon Discharge : None Additional Therapy Screen Comment : Pt reports she remains I with ADLs, functional mobility, and denies any need for therapy at this time. No further skilled OT indicated. MATTHIAS STAHL, OTR/L - 10/04/2018 11:24 EDT Electronically signed by Christiano [place] Conversion Truckload Owner Operator Cerner at 08/09/2022 9:16 AM CDT documented in this encounter Plan of Treatment Not on file documented as of this encounter Visit Diagnoses Not on filedocumented in this encounter Care Teams Machine Maintenance Supervisor Relationship Specialty Start Date End Date Roopa Mcfarland, TORY [address] [place] [address] PCP - General Nurse Practitioner 01/20/25 documented as of this encounter
--- OUTSIDE RECORDS SUMMARY | 2025-04-16 20:53 | XMS_ITS | Encounter Summary ---
Author Organization [employer] ([place], [place], [place], [place], [place]) Address [address] [place] [address] Care Team Providers Care Audit Practice Intern Name Role Phone Roopa Mcfarland TORY Primary Care Provider Encounter Details Date Type Department Care Team (Late st Contact Info) Description 10/03/2018 Transcribed Document [facility] [place] [facility] [place] [address] ProviderJoann MD [address] [place] [address] Social History Tobacco Use Types Packs/Day Years Used Date Smoking Tobacco: Never Assessed Comments Unknown Sex and Gender Information Value Date Recorded Sex Assigned at Not on file Legal Sex Female 4:43 PM CDT Gender Identity Not on file Sexual Orientation Not on file documented as of this encounter Miscellaneous Notes * Cerner Conversion Note - Joann ProviderMD - 10/03/2018 5:01 PM CDT Cardiac and Pulmonary Outpatient Matthew Entered On: 10/06/2018 12:55 EDT Performed On: 10/03/2018 17:01 EDT by EDGARDO STOVALL vp clinical and Pulmonary Outpatient Matthew Criteria Disqualifying for Phase 2 Cardiac Rehab : No qualifying diagnosis EDGARDO STOVALL RN - 10/06/2018 12:54 EDT Electronically signed by Karthik [facility] Conversion Sheet Metal Supervisor Cerner at 08/09/2022 9:20 AM CDT documented in this encounter Plan of Treatment Not on file documented as of this encounter Visit Diagnoses Not on filedocumented in this encounter Care Teams Audit Practice Intern Relationship Specialty Start Date End Date Roopa Mcfarland FNP [address] [place] [address] PCP - General Nurse Practitioner 01/20/25 documented as of this encounter
--- OUTSIDE RECORDS SUMMARY | 2025-04-16 20:53 | XMS_ITS | Referral Summary ---
Author Organization [employer] ([place], [place], [place], [place], [place]) Address [address] [place] [address] Care Team Providers Care Wool Presser Name Role Phone Roopa Mcfarland TORY Primary Care Provider Encounters Date Type Department Care Team Description 01/20/2025 Travel 01/20/2025 2:43 PM EDT - 01/20/2025 5:59 PM EDT Emergency [facility] [address] [place] [address] Mason Deal MD Palpitations (Primary Dx); Diarrhea, unspecified type; Chronic abdominal pain; Mass of pancreas Discharge Disposition: Home or Self Care from Last 3 Months Allergies Active Allergy Reactions Criticality Noted Date Comments Adhesive Tape Hives,Rash High 06/15/2013 Medications bisoprolol (ZEBETA) 10 MG tablet Take 1 tablet (10 mg total) by mouth daily. Active omeprazole (PriLOSEC) 40 MG capsule Take 1 capsule (40 mg total) by mouth 2 (two) times daily. Active loratadine (CLARITIN) 10 mg tablet Take 1 tablet (10 mg total) by mouth daily. Active levothyroxine (SYNTHROID) 75 MCG tablet Take 1 tablet (75 mcg total) by mouth Daily (0600). Active meloxicam (MOBIC) 15 MG tablet Take 1 tablet (15 mg total) by mouth daily. Active furosemide (LASIX) 20 MG tablet Take 1 tablet (20 mg total) by mouth daily as needed (Edema). Active topiramate (TOPAMAX) 50 MG tablet Take 1 tablet (50 mg total) by mouth 2 (two) times daily. Active midodrine (PROAMATINE) 10 MG tablet Take 1 tablet (10 mg total) by mouth 3 (three) times daily as needed. Active cyclobenzaprine (FLEXERIL) 5 MG tablet Take 1 tablet (5 mg total) by mouth every night as needed for muscle spasms. Active propranoloL (INDERAL) 20 MG tablet Take 1 tablet (20 mg total) by mouth as needed (for dental work). Active hydroxychloroqu ine (PLAQUENIL) 200 mg tablet Hold until finishing oral antiobitics. Active escitalopram (LEXAPRO) 10 MG tablet Hold wile taking levaquin. Active Active Problems Problem Noted Date Diagnosed Date Proctitis 06/01/[address] of the abdomen 06/01/2024 Social History Tobacco Use Types Packs/Day Years Used Date Smoking Tobacco: Never Smokeless Tobacco: Never Tobacco Cessation:Counseling Given: Not Answered Alcohol Use Standard Drinks/Week Comments Not Currently 0 (1 standard drink = 0.6 oz pur e alcohol) Utilities Answer Date Recorded In the past 12 months, has t he [employer], gas, oil, or water company threatened to shut off services in your home? No 06/01/2024 Interpersonal Safety Answer Date Record ed How often does anyone, crow fong family and friends, physically hurt you? Never 06/01/2024 How often does anyone, crow hetal family and friends, insult or talk down to you? Never 06/01/2024 How often does anyone, crow hetal family and friends, threaten you with harm? Never 06/01/2024 How often does anyone, maeblanco fong family and friends, scream or curse at you? Never 06/01/2024 Housing Stability Answer Date Recorded What is your living situation today? I have a [facility] [address] to live 06/01/[address] you li ve. Do you have problems with any of the following? None of the above 06/01/2024 Food Insecurity Answer Date Recorded Within the past 12 months, y ou worried that your food would run out before you got money to buy more. Never true 06/01/2024 Within the past 12 months, t he food you bought just didn't last and you didn't have money to get more. Never true 06/01/2024 Transportation Needs Answer Date Record ed In the past 12 months, has l ack of reliable transportation kept you from medical appointments, meetings, work or from getting things needed for daily living? No 06/01/2024 Financial Resource Strain Answer Date R ecorded How hard is it for you to pa y for the very basics like food, housing, medical care, and heating? Would you say it is: Not hard at all 06/01/2024 Employment Answer Date Recorded Do you want help finding or keeping work or a job? I do not need or want help 06/01/2024 Family and Community Support Answer Aureliano e Recorded If for any reason you need h elp with day-to-day activities such as bathing, preparing meals, shopping, managing finances, etc., do you get the help you need? I don't need any help 06/01/2024 Feeling Lonely or Isolated 0 06/01 Educational Attainment Answer Date Norm rded Do you speak a language other than Russian at [facility]? No 06/01/2024 Do you want help with school or training? For example, starting or completing job training or getting a high school diploma, GED or equivalent. No 06/01/2024 Physical Activity Answer Date Recorded Number of minutes of exercise per week 0 06/01/2024 Self Management Answer Date Recorded Because of a physical, menta l, or emotional condition, do you have serious difficulty concentrating, remembering, or making decisions? (5 years or older) No 06/01/2024 Because of a physical, menta l, or emotional condition, do you have difficulty doing errands alone such as visiting a doctor's office or shopping? (15 years or older) No 06/01/2024 Substance Use Answer Date Recorded How many times in the past y ear have you used prescription drugs for non-medical reasons? Never 06/01/2024 How many times in the past year have you used il legal drugs? Never 06/01/2024 Mental Health Answer Date Recorded Calculation of above two rows 0 Comments No Sex and Gender Information Value Date Recorded Sex Assigned at Not on file Legal Sex Female 4:43 PM CDT Gender Identity Not on file Sexual Orientation Not on file Last Filed Vital Signs Vital Sign Reading Time Taken Comments Blood Pressure 97/56 01/20/2025 5:50 PM EDT Pulse 68 01/20/2025 5:50 PM EDT Temperature 36.8 C (98.3 F) 01/20/2025 5:59 PM EDT Respiratory Rate 17 01/20/2025 2:48 PM EDT Oxygen Saturation 97% 01/20/2025 5:50 PM EDT Inhaled Oxygen Concentration - - Weight 58.5 kg (129 lb) 01/20/2025 2:48 PM EDT Height 157.5 cm (5' 2 ) 01/20/2025 2:48 PM EDT Body Mass Index 23.59 01/20/2025 2:48 PM EDT Plan of Treatment Not on file Procedures Procedure Name Priority Date/Time Associated Diagnosis Comments HIGH SENSITIVITY TROPONIN I STAT 01/20/2025 4:45 PM EDT FS_MODEL_IP POCT , URINE STAT 01/20/2025 3:17 PM EDT URINE DRUG SCREEN STAT 01/20/2025 3:0 5 PM EDT URINALYSIS, REFLEX MICROSCOPIC AND CULTURE IF INDICATED STAT 01/20/2025 3:05 PM EDT [place] GIBBS TOP STAT 01/20/2025 2:55 PM EDT [place] PST (EXTRA TUBES) STAT 01/20/2025 2:55 PM EDT [place] BLUE TOP (EXTRA TUBES) STAT 01/20/2025 2:55 PM EDT [place] EXTRA TUBES STAT 01/20/2025 2:55 PM EDT T4, FREE Routine 01/20/2025 2:54 PM EDT MAGNESIUM STAT 01/20/2025 2:54 PM EDT TSH W REFLEX FT4 STAT 01/20/2025 2:54 PM EDT BASIC METABOLIC PANEL STAT 01/20/2025 2:54 PM EDT CBC W/ AUTO DIFF STAT 01/20/2025 2:54 PM EDT EKG-SCANNED 01/20/2025 from Last 3 Months Results * High Sensitivity Troponin I (01/20/2025 4:45 PM EDT) [facility] Troponin I High Sensitivity (pg/mL) <5.0 <=14 pg/mL 01/20/2025 5:27 PM EDT [facility] Blood Venipuncture / Unknown 01/20/2025 4:45 PM EDT 01/20/2025 4:47 PM EDT Narrative [facility] - 01/20/2025 5:27 PM EDT Applicable to [facility] only. Effective July 14 the lab will begin using a new chemistry analyzer. HsTroponin methodology, reference ranges and critical values have changed. Mason Deal MD LAB BLOOD ORDERABLES Final R esult [facility] [address] [place] [address], [facility] [phone] * POCT , urine (01/20/2025 3:17 PM EDT) [facility] POC, URINE HCG Negative Negative INTERNAL QC (VALID/INVALID ) Valid Kit Lot Number [id number] Expiration Date 06/16/2026 01/20/2025 3:17 PM EDT Radha Felix PA-C FS_MODEL_IP_POINT OF CARE TEST ENTER/EDIT ORDERABLES Final Result * (ABNORMAL) Urinalysis, Reflex Microscopic and Culture If Indicated (01/20/2025 3:05 PM EDT) Color, UA Light Yellow 01/20/2025 3:18 PM EDT [facility] Clarity, UA Clear Clear 01/20/2025 3:18 PM EDT [facility] Specific Premium, UA 1.016 1.005 - 1.030 01/20/2025 3:18 PM EDT [facility] pH, UA 5.5(L) 6.0 - 8.0 01/20/2025 3:18 PM EDT [facility] Leukocytes, UA Negative Negative 01/20/2025 3:18 PM EDT [facility] Nitrite, UA Negative Negative 01/20/2025 3:18 PM EDT [facility] Protein, UA Negative Negative 01/20/2025 3:18 PM EDT [facility] Glucose, UA Normal Normal 01/20/2025 3:18 PM EDT [facility] Ketones, UA Negative Negative 01/20/2025 3:18 PM EDT [facility] Bilirubin, UA Negative Negative 01/20/2025 3:18 PM EDT [facility] Blood, UA Negative Negative 01/20/2025 3:18 PM EDT [facility] Urobilinogen, UA Normal Normal 01/20/2025 3:18 PM EDT [facility] Specimen Source Urine, Clean Catch 01/20/2025 3:18 PM EDT [facility] Urine URINE SPECIMEN COLLECTION, CLEAN CATCH / Unknown 01/20/2025 3:05 PM EDT 01/20/2025 3:13 PM EDT us Radha Felix PA-C URINE ORDERABLES Final Re sult [facility] [address] [phone] * Urine Drug Screen (01/20/2025 3:05 PM EDT) Amphetamine/Methampheta mine Negative Negative 01/20/2025 3:45 PM EDT [facility] Barbiturate Screen Negative Negative 2024 3:45 PM EDT [facility] Benzodiazepine Screen Negative Negative 04/2024 3:45 PM EDT [facility] Cocaine (Metab.) Screen Negative Negative 1 3:45 PM EDT [facility] Opiate Screen Negative Negative 01/20/2025 3:45 PM EDT [facility] Tetrahydrocannabinol Negative Negative 04/2024 3:45 PM EDT [facility] Fentanyl Negative Negative 01/20/2025 3:45 PM EDT [facility] Urine URINE SPECIMEN COLLECTION, CLEAN CATCH / Unknown 01/20/2025 3:05 PM EDT 01/20/2025 3:13 PM EDT Narrative [facility] - 01/20/2025 3:45 PM EDT This urine drug of abuse screen is for medical purposes only. A positive result is a preliminary analytical result which has not been confirmed. Drug Cutoff Limits are: Amp/Methamp: 1000 ng/mL Barbiturates: 200 ng/mL Benzodiazepines: 200 ng/mL Cannabinoids: 50 ng/mL Cocaine Metabolites: 300 ng/mL Fentanyl: 1.0 ng/mL Opiates: 300 ng/mL us Radha Felix PA-C URINE ORDERABLES Final Re sult Performing Organization Address [facility]/[place] Co de Phone Number [facility] [address] [phone] * PST Top Extra Tubes (01/20/2025 2:55 PM EDT) HOLD SPECIMEN (SJ - BKR) Hold for add-ons. 01/20/2025 5:01 PM EDT [facility] Comment:Auto resulted. Blood (Blood, Veinous) Venipuncture / Unknown 01/20/2025 2:55 PM EDT 01/20/2025 3:02 PM EDT us Radha Felix PA-C LAB BLOOD ORDERABLES Kadie l Result Performing Organization Address [facility]/State/ZIP Co de Phone Number [facility] [address] [phone] * Gibbs Top Extra Tubes (01/20/2025 2:55 PM EDT) HOLD SPECIMEN (SJ - BKR) Hold for add-ons. 01/20/2025 5:01 PM EDT [facility] Comment:Auto resulted. Blood (Blood, Veinous) Venipuncture / Unknown 01/20/2025 2:55 PM EDT 01/20/2025 3:02 PM EDT Radha Felix PA-C LAB BLOOD ORDERABLES Kadie l Result Performing Organization Address [facility]/ZIP Co de Phone Number [facility] [address] [phone] * Blue Top Extra Tubes (01/20/2025 2:55 PM EDT) HOLD SPECIMEN (SJ - BKR) Hold for add-ons. 01/20/2025 5:01 PM EDT [facility] Comment:Auto resulted. Blood (Blood, Veinous) Venipuncture / Unknown 01/20/2025 2:55 PM EDT 01/20/2025 3:02 PM EDT Radha Felix PA-C LAB BLOOD ORDERABLES Kadie l Result Performing Organization Address City/[facility]/ZIP Co de Phone Number [facility] [address] [phone] * (ABNORMAL) CBC with Auto Diff (01/20/2025 2:54 PM EDT) WBC 11.4(H) 4.0 - 10.0 K/ L 01/20/2025 3:06 PM EDT [facility] RBC 4.56 3.93 - 5.22 M/ L 01/20/2025 3:06 PM EDT [facility] Hemoglobin 13.3 11.2 - 15.7 GM/DL 01/20/2025 3:06 PM EDT [facility] Hematocrit 40.1 34.1 - 44.9 % 01/20/2025 3:06 PM EDT [facility] MCV 88 79 - 95 fL 01/20/2025 3:06 PM EDT [facility] MCH 29.2 25.6 - 32.2 pg 01/20/2025 3:06 PM EDT [facility] MCHC 33.2 32.2 - 35.5 GM/DL 01/20/2025 3:06 PM EDT [facility] RDW 12.8 11.7 - 14.4 % 01/20/2025 3:06 PM EDT [facility] Platelets 302 140 - 375 K/CU MM 01/20/2025 3:06 PM EDT [facility] MPV 10.3 9.4 - 12.3 fL 01/20/2025 3:06 PM EDT [facility] % Neutros 72(H) 34 - 71 % 01/20/2025 3:06 PM EDT [facility] % Lymphs 19 19 - 52 % 01/20/2025 3:06 PM EDT [facility] % Monos 7 5 - 13 % 01/20/2025 3:06 PM EDT [facility] % Eos 2 1 - 6 % 01/20/2025 3:06 PM EDT [facility] % Baso 1 0 - 1 % 01/20/2025 3:06 PM EDT [facility] NRBC Absolute <0.01 0 - 0.012 K/ul 01/20/2025 3:06 PM EDT [facility] # Neutros 8.17(H) 1.56 - 6.13 K/ L 01/20/2025 3:06 PM EDT [facility] # Lymphs 2.13 1.18 - 3.74 K/ L 01/20/2025 3:06 PM EDT [facility] # Monos 0.76 0.24 - 0.86 K/ L 01/20/2025 3:06 PM EDT [facility] # Eos 0.23 0.04 - 0.36 K/ L 01/20/2025 3:06 PM EDT [facility] # Baso 0.07 0.01 - 0.08 K/ L 01/20/2025 3:06 PM EDT [facility] % Imm Grans 0.60(H) 0.01 - 0.43 % 01/20/2025 3:06 PM EDT [facility] # IG 0.07(H) 0.00 - 0.03 K/uL 01/20/2025 3:06 PM EDT [facility] Blood Venipuncture / Unknown 01/20/2025 2:54 PM EDT 01/20/2025 3:02 PM EDT Narrative [facility] - 01/20/2025 3:06 PM EDT When CBC w/ Auto Diff is ordered the lab will add a Manual Differential as a quality check at no additional charge if: Lymphocytes greater than seventy five percent with normal or increased WBC Monocytes greater than Fifteen percent Basophil greater than four percent Bands >10% or several immature myeloids are seen on scan Blast? Flag noted Atypical Lymph flag noted Radha Felix PA-C LAB BLOOD ORDERABLES Kadie l Result [facility] [address] [phone] * (ABNORMAL) TSH with Reflex FT4 (01/20/2025 2:54 PM EDT) TSH 0.053(L) 0.350 - 4.940 uIU/mL 01/20/2025 3:41 PM EDT [facility] Blood Venipuncture / Unknown 01/20/2025 2:54 PM EDT 01/20/2025 3:02 PM EDT Radha Felix PA-C LAB BLOOD ORDERABLES Kadie l Result [facility] [address] [phone] * T4, free (01/20/2025 2:54 PM EDT) Pathologist [facility] Free T4 0.90 0.70 - 1.48 ng/dL 01/20/2025 6:52 PM EDT [facility] Blood Venipuncture / Unknown 01/20/2025 2:54 PM EDT 01/20/2025 3:02 PM EDT us Radha Felix PA-C LAB BLOOD ORDERABLES Kadie l Result Performing Organization Address City/[facility]/ZIP Co de Phone Number [facility] [address] [phone] * Magnesium (01/20/2025 2:54 PM EDT) [facility] Magnesium 1.9 1.6 - 2.6 mg/dL 01/20/2025 3:41 PM EDT [facility] Blood Venipuncture / Unknown 01/20/2025 2:54 PM EDT 01/20/2025 3:02 PM EDT us Katy Abarca APRN LAB BLOOD ORDERABLES Final Resu lt Performing Organization Address [facility]/[place] Co de Phone Number [facility] [address] [phone] * (ABNORMAL) Basic Metabolic Panel (01/20/2025 2:54 PM EDT) [facility] Sodium 139 136 - 145 meq/L 01/20/2025 3:41 PM EDT [facility] Potassium 3.5 3.4 - 5.1 meq/L 01/20/2025 3:41 PM EDT [facility] CO2 18(L) 22 - 29 meq/L 01/20/2025 3:41 PM EDT [facility] Chloride 112 98 - 112 meq/L 01/20/2025 3:41 PM EDT [facility] Glucose 86 74 - 100 mg/dL 01/20/2025 3:41 PM EDT [facility] BUN 19.5(H) 7.0 - 18.7 mg/dL 01/20/2025 3:41 PM EDT [facility] Creatinine 0.74 0.57 - 1.11 mg/dL 01/20/2025 3:41 PM EDT [facility] BUN/Creatinine 26(H) 8 - 20 01/20/2025 3:41 PM EDT [facility] Calcium 8.4 8.4 - 10.2 mg/dL 01/20/2025 3:41 PM EDT [facility] Anion Gap 13(H) 4 - 12 01/20/2025 3:41 PM EDT [facility] eGFR (mL/min/1.73m2) 105 >=60 mL/min/1.7 3m2 01/20/2025 3:41 PM EDT [facility] Comment:ESTIMATED GFR IS NOT ACCURATE CREATININE CLEARANCE IN PREDICTING GLOMERULAR FILTRATION RATE. ESTIMATED GFR IS NOT APPLICABLE FOR DIALYSIS PATIENTS. Osmolality Calc 279.3 mOsm/kg 3:41 PM EDT [facility] Blood Venipuncture / Unknown 01/20/2025 2:54 PM EDT 01/20/2025 3:02 PM EDT Radha Felix PA-C LAB BLOOD ORDERABLES Kadie mckee Result Performing Organization Address City/State/[place] Co de Phone Number [facility] [address] [phone] * EKG-SCANNED (01/20/2025) Narrative 01/20/2025 Ordered by an unspecified provider. us Default Scanning Provider SCAN ORDERS Final Result from Last 3 Months Insurance BLUE CROSS/BLUE SHIELD Advance Directives For more information, please contact: [phone] * Full Code (Latest Code Status on File) Date Activated Date Inactivated Comments 06/01/2024 4:19 PM 06/05/2024 5:45 PM Care Teams Wool Presser Relationship Specialty Start Date End Date Roopa Mcfarland FNP [address] [place] [address] PCP - General Nurse Practitioner 01/20/25
--- OUTSIDE RECORDS SUMMARY | 2025-04-16 20:53 | XMS_ITS | Encounter Summary ---
Author Organization [employer] ([place], [place], [place], [place], [place]) Address [address] [place] [address] Care Team Providers Care Nurse Rn Bsn Name Role Phone Roopa Mcfarland TORY Primary Care Provider Encounter Details Date Type Department Care Team (Late st Contact Info) Description 10/04/2018 Transcribed Document [facility] [place] [facility] [place] [address] ProviderJoann MD [address] [place] [address] [phone] Social History Tobacco Use Types Packs/Day Years Used Date Smoking Tobacco: Never Assessed Comments Unknown Sex and Gender Information Value Date Recorded Sex Assigned at Not on file Legal Sex Female 4:43 PM CDT Gender Identity Not on file Sexual Orientation Not on file documented as of this encounter Miscellaneous Notes * Cerner Conversion Note - Joann ProviderMD - 10/04/2018 5:00 AM CDT Height and Weight, Routine Entered On: 10/04/2018 6:11 EDT Performed On: 10/04/2018 5:00 EDT by Genia Diehl RN Height and Weight, Routine Routine Weight Source : Standing scale Routine Weight Entry Format : Sarpy Routine Weight, Pounds : 137 lb Routine Weight, Ounces : 9 oz Routine Weight Calculation : 62.53 kg Height Source : Chart Height Entry Format : Sarpy Height, Feet : 5 ft Height, Inches : 4 Inch Clinical Height : 162.56 cm Body Surface Area (BSA), Routine : 1.67 m2 Body Mass Index (BMI), Routine : 23.66 kg/m2 Genia Diehl RN - 10/04/2018 6:11 EDT documented in this encounter Plan of Treatment Not on file documented as of this encounter Visit Diagnoses Not on filedocumented in this encounter Care Teams Nurse Rn Bsn Relationship Specialty Start Date End Date Roopa Mcfarland, TORY [address] [place] [address] PCP - General Nurse Practitioner 01/20/25 documented as of this encounter
--- OUTSIDE RECORDS SUMMARY | 2025-04-16 20:53 | XMS_ITS | Encounter Summary ---
Author Organization [employer] ([place], [place], [place], [place], [place]) Address [address] [place] [address] Care Team Providers Care Field Worker Name Role Phone Roopa Mcfarland Primary Care Provider Encounter Details Date Type Department Care Team (Late st Contact Info) Description 06/17/2018 Transcribed Document [facility] [place] [facility] [address] ProviderJoann MD [address] [place] [address] Social History Tobacco Use Types Packs/Day Years Used Date Smoking Tobacco: Never Assessed Comments Unknown Sex and Gender Information Value Date Recorded Sex Assigned at Not on file Legal Sex Female 4:43 PM CDT Gender Identity Not on file Sexual Orientation Not on file documented as of this encounter Miscellaneous Notes * Cerner Conversion Note - Joann ProviderMD - 06/17/2018 12:40 AM CHILD THERAPIST [address] [place] [address] Patient Information Name: ALEXANDREA GUTIERREZ Age: 32 Years Date of : 1985 Arrival Time: 06/16/2018 19:48:00 Diagnosis Primary Care Physician: MARTI ORELLANA (REF) Provider Information Primary Provider: SAVANNAH ESPINAL Secondary Provider: ALEXANDREA GUTIERREZ has been given the following list of patient education materials, prescriptions and follow-up instructions: Follow-up Instructions: Patient Education Materials: Allergies: Tape Medication Information: Laboratory or Other Results This Visit (last charted value for your 06/16/2018 visit) Hematology 06/16/18 20:11:00 WBC: 10.6 K/uL -- Normal range between ( 3.9 and 10.0 ) RBC: 4.56 Million/uL -- Normal range between ( 3.93 and 5.22 ) Hct: 40.2 % -- Normal range between ( 34.1 and 44.9 ) Hgb: 12.8 Gram/dL -- Normal range between ( 11.2 and 15.7 ) Platelet Count: 273 K/uL -- Normal range between ( 163 and 369 ) MCH: 28.1 pg -- Normal range between ( 25.6 and 32.2 ) MCHC: 31.8 Gram/dL -- Normal range between ( 32.3 and 36.5 ) MCV: 88.2 fL -- Normal range between ( 79.0 and 94.8 ) Slide Review: No RDW: 13.9 % -- Normal range between ( 11.6 and 14.4 ) MPV: 11.3 fL -- Normal range between ( 9.4 and 12.4 ) General Chemistry 06/16/18 20:44:00 Lipase Level: 299 Units/Liter -- Normal range between ( 73 and 393 ) 06/16/18 20:11:00 Creatinine Level: 0.75 mg/dL -- Normal range between ( 0.55 and 1.02 ) Sodium Level: 141 mmol/L -- Normal range between ( 136 and 146 ) Potassium Level: 4.7 mmol/L -- Normal range between ( 3.5 and 5.1 ) Chloride Level: 113 mmol/L -- Normal range between ( 102 and 112 ) Carbon Dioxide Level: 20 mmol/L -- Normal range between ( 21 and 32 ) Anion Gap: 13 -- Normal range between ( 9 and 20 ) Bilirubin Total: 0.3 mg/dL -- Normal range between ( 0.2 and 1.3 ) A/G Ratio: 1.3 -- Normal range between ( 1.1 and 2.5 ) ALT: 59 Units/Liter -- Normal range between ( 12 and 78 ) AST: 62 Units/Liter -- Normal range between ( 5 and 37 ) Globulin: 3.0 Gram/dL -- Normal range between ( 1.5 and 4.5 ) Alk Phos: 87 Units/Liter -- Normal range between ( 27 and 136 ) Bun/Creatinine: 30.7 -- Normal range between ( 8.0 and 20.0 ) Calcium Level: 8.2 mg/dL -- Normal range between ( 8.5 and 10.1 ) eGFR : >60 mL/min/1.73m2 eGFR NonAfrican: >60 mL/min/1.73m2 Glucose Level: 84 mg/dL -- Normal range between ( 74 and 106 ) Blood Urea Nitrogen: 23 mg/dL -- Normal range between ( 7 and 22 ) Protein Total: 6.8 Gram/dL -- Normal range between ( 6.4 and 8.2 ) Albumin Level: 3.8 Gram/dL -- Normal range between ( 3.4 and 5.0 ) Cardiac Specific Markers 06/16/18 22:46:00 Troponin I Ultra: <0.015 ng/mL -- Normal range between ( 0.015 and 0.045 ) 06/16/18 20:11:00 ProBNP: 71 pg/mL -- Normal range between ( 0 and 125 ) Coagulation 06/16/18 20:44:00 D Dimer Quant: 287 ng/mL Medication Comment: Procedures: Laboratory Orders Name Status CBCD Ordered CBCND Completed CMP Completed CMP Ordered DIMERQT Completed LIPASE Completed LIPID Ordered MG Ordered OSMO Ordered PROBNP Completed PROBNP Ordered PROBNP Ordered PT Ordered PTT Ordered TROPIULT Completed TROPIULT Completed TROPIULT Ordered TSH Ordered UADIP Ordered UNAR Ordered UOSMOR Ordered Radiology Orders Name Status CR Chest 1 Vw Portable Ordered Cardiology Orders Name Status ECG Ordered ECG Ordered ECG Ordered This statement is to verify that ALEXANDREA GUTIERREZ was seen at [facility] Emergency Department on ,06/17/2018 00:40:10. This is not a work excuse, if a work excuse was needed it will be in addition to this statement as a separate form. IMPORTANT: The examination and treatment you have received in the Emergency Department has been done to provide an appropriate evaluation and stabilizing treatment on an emergency basis only. Given the limited resources, it is not meant to be a substitute for complete medical care. The follow-up doctor you named will receive a copy of your records and all test reports. IT IS IMPORTANT THAT YOU SCHEDULE A FOLLOW-UP APPOINTMENT AND ARE RE-EVALUATED. You should report any new complaints, symptoms, or remaining problems at that time. IT IS IMPOSSIBLE FOR THE EMERGENCY DEPARTMENT TO RECOGNIZE AND TREAT ALL ELEMENTS OF INJURY OR ILLNESS IN A SINGLE VISIT. If you have been referred to a specialist physician, it means that we believe you may have a condition that requires the expertise of a specialist. KEEP IN MIND THAT THE SPECIALIST HAS HIS/HER OWN OFFICE POLICIES WHICH MAY REQUIRE PROPER INSURANCE OR PAYMENT UP FRONT BEFORE THE SPECIALIST WILL SEE YOU. It is your responsibility to call the specialist physician to make an appointment. We do not have the ability to identify specialists/physicians that work with specific insurance companies. Please be advised that all financial charges or billing practices are determined by that practice, not the hospital. If your insurance company requires that you see a specialist from their approved list, it is your responsibility to contact your insurance company to make those arrangements. It is also your responsibility to follow any other requirements of your insurance company necessary to obtain coverage for claims submitted. If you had special tests, such as EKG???s or X-rays, the interpretation of your tests given to you by the Emergency Dept. Physician is a preliminary report. Some fractures and illnesses fail to show up on preliminary tests. We will review them again within 24-48 hours. We will call you if there are any new suggestions. If your symptoms continue notify your physician. After you leave, you should follow the instructions below. In all events, you may obtain a copy of your Emergency Department visit from Medical Records. Please call to be directed to this department. We will bill your insurance; however, you are responsible today for any co-pay amounts. You will receive a separate bill for any services you may have received including: emergency, radiology, or pathology physicians. Please be sure we have an accurate contact phone number and address, should we need to call you for any reason. CIGARETTE SMOKING: The facts are clear; cigarette smoking will shorten your life. Smoking can cause many illnesses along the way. As a healthcare provider, E recommends that you stop smoking. Assistance with quitting is available by contacting 0-797-XZRJ-NOW. This is a free resource providing counseling, support, and referral. Or you may contact your personal physician. As part of your treatment plan, [...] cramping, rapid heartbeat, difficulty sleeping, and nervousness. The home medications listed are only as accurate as the information you provided. Please continue taking all of your medications prescribed by your Primary Care Provider unless specifically told to change or discontinue the medication. Please direct any questions regarding your home medications to your Primary Care Provider. YOU ARE THE MOST IMPORTANT FACTOR IN YOUR RECOVERY. ?? Follow your instructions carefully ?? Take your medicines as prescribed ?? Most important, see a provider as discussed. If you do not have a provider, we can provide a list of clinics Confidential This message and accompanying documents are covered by Electronic Communications Privacy Act 18 U.S.C. ???Sections 6293-0481,?? and contain information intended for the specified individual(s) only. This information is confidential. If you are not the intended recipient or an agent responsible for delivering it to the intended recipient, you are hereby notified that you have received the document in error and that any review, dissemination, copying, or the taking of any action based on the contents of this information is strictly prohibited. If you have received this communication in error, please notify us immediately by email, and delete the original message. 4 WAYS TO GET AHEAD OF SEPSIS [...] Fibrillation (irregular heartbeat) Family history of stroke Acknowledgment I hereby acknowledge receipt of these instructions and information above. I understand that I have received Emergency Treatment only which is not a substitute for complete medical care and acknowledge that all of my medical problems may not be known, identified, or treated prior to my release. I UNDERSTAND THE NEED TO ARRANGE FOLLOW-UP CARE WITH THE PHYSICIAN INDICATED. I UNDERSTAND THAT I SHOULD CONTACT MY PHYSICIAN IMMEDIATELY OR RETURN TO THE EMERGENCY DEPARTMENT IF MY CONDITION WORSENS, FAILS TO IMPROVE, OR NEW SYMPTOMS APPEAR. Vital Signs B/P PULSE RESP. RATE TEMPERATURE PULSE OX Signature of Emergency Provider Date / Time Signature of Emergency Nurse Date / Time Reminder: Be sure to sign up for the [facility] patient portal, which gives you 12/11 access to your medical information ??? including these discharge instructions ??? using your computer, smartphone, or tablet. Just go to [employer] to get started. Questions? Call . Acknowledgment I hereby acknowledge receipt of these instructions and information above. I understand that I have received Emergency Treatment only which is not a substitute for complete medical care and acknowledge that all of my medical problems may not be known, identified, or treated prior to my release. I UNDERSTAND THE NEED TO ARRANGE FOLLOW-UP CARE WITH THE PHYSICIAN INDICATED. I UNDERSTAND THAT I SHOULD CONTACT MY PHYSICIAN IMMEDIATELY OR RETURN TO THE EMERGENCY DEPARTMENT IF MY CONDITION WORSENS, FAILS TO IMPROVE, OR NEW SYMPTOMS APPEAR. Signature of Patient / Responsible Person Date / Time Please provide a telephone number where you can be reached. The best time to call is between: It is permissible to leave a message if no answer: Yes____ No____ Nurse Providing Instructions: Emergency Physician: documented in this encounter Plan of Treatment Not on file documented as of this encounter Visit Diagnoses Not on filedocumented in this encounter Care Teams Field Worker Relationship Specialty Start Date End Date Roopa Mcfarland FNP [address] [place] [address] PCP - General Nurse Practitioner 01/20/25 documented as of this encounter
--- OUTSIDE RECORDS SUMMARY | 2025-04-16 20:53 | XMS_ITS | Encounter Summary ---
Author Organization [employer] ([place], [place], [place], [place], [place]) Address [address] [place] [address] Care Team Providers Care Sales Promotion Officer Name Role Phone Roopa Mcfarland TORY Primary Care Provider Encounter Details Date Type Department Care Team (Late st Contact Info) Description 10/04/2018 Transcribed Document [facility] [place] [facility] [place] [address] ProviderJoann MD [address] [place] [address] Social History Tobacco Use Types Packs/Day Years Used Date Smoking Tobacco: Never Assessed Comments Unknown Sex and Gender Information Value Date Recorded Sex Assigned at Not on file Legal Sex Female 4:43 PM CDT Gender Identity Not on file Sexual Orientation Not on file documented as of this encounter Miscellaneous Notes * [employer]ner Conversion Note - Joann ProviderMD - 10/04/2018 2:00 AM CDT Lead Business Systems Analyst Details Entered On: 10/04/2018 2:09 EDT Performed On: 10/04/2018 2:00 EDT by Genia Diehl RN Order Details Transport Mode Order Detail : Wheelchair Isolation Precautions Order Detail : Contact precautions Order Detail : 0 IV Order Detail : 1 Oxygen Order Detail : 0 Nurse Collect Order Detail : 0 Lift/Transfer : Independent Central Line Order Detail : No Room Service : Appropriate Arterial Line : No Genia Diehl RN - 10/04/2018 2:09 EDT Electronically signed by Christiano Angeles Conversion Senior Java Web Developer [employer] at 08/09/2022 9:05 AM CDT documented in this encounter Plan of Treatment Not on file documented as of this encounter Visit Diagnoses Not on filedocumented in this encounter Care Teams Sales Promotion Officer Relationship Specialty Start Date End Date Roopa Mcfarland FNP [address] [place] [address] PCP - General Nurse Practitioner 01/20/25 documented as of this encounter
--- OUTSIDE RECORDS SUMMARY | 2025-04-16 20:53 | XMS_ITS | Encounter Summary ---
Author Organization [email or web address] ([place], [place], [place], [place], [place]) Address [address] [place] [address] Care Team Providers Care Skin Grader Name Role Phone Roopa Mcfarland TORY Primary Care Provider Encounter Details Date Type Department Care Team (Late st Contact Info) Description 10/05/2018 Transcribed Document [facility] [place] [facility] [place] [address] ProviderJoann MD [address] [place] [address] Social History Tobacco Use Types Packs/Day Years Used Date Smoking Tobacco: Never Assessed Comments Unknown Sex and Gender Information Value Date Recorded Sex Assigned at Not on file Legal Sex Female 4:43 PM CDT Gender Identity Not on file Sexual Orientation Not on file documented as of this encounter Miscellaneous Notes * Cerner Conversion Note - Joann ProviderMD - 10/05/2018 5:00 AM CDT Height and Weight, Routine Entered On: 10/05/2018 5:30 EDT Performed On: 10/05/2018 5:00 EDT by Tanna Jeronimo CNA Height and Weight, Routine Routine Weight Entry Format : [place] Routine Weight, Pounds : 137 lb Routine Weight Calculation : 62.27 kg Height Source : Chart Height Entry Format : [place] Height, Feet : 5 ft Height, Inches : 4 Inch Clinical Height : 162.56 cm Body Surface Area (BSA), Routine : 1.67 m2 Body Mass Index (BMI), Routine : 23.56 kg/m2 Tanna Jeronimo CNA - 10/05/2018 5:30 EDT Electronically signed by Christiano Angeles Conversion Alcohol Law Enforcement Agent [employer] at 08/09/2022 8:58 AM CDT documented in this encounter Plan of Treatment Not on file documented as of this encounter Visit Diagnoses Not on filedocumented in this encounter Care Teams Skin Grader Relationship Specialty Start Date End Date Roopa Mcfarland FNP [address] [place] [address] PCP - General Nurse Practitioner 01/20/25 documented as of this encounter
--- OUTSIDE RECORDS SUMMARY | 2025-04-16 20:53 | XMS_ITS | Encounter Summary ---
Author Organization [employer] ([place], [place], [place], [place], [place]) Address [address] [place] [address] Care Team Providers Care Disabilities Caregiver Name Role Phone Roopa Mcfarland CLINICAL REGISTERED NURSE Primary Care Provider Encounter Details Date Type Department Care Team (Late st Contact Info) Description 06/17/2018 Transcribed Document [facility] [place] [address] ProviderJoann MD [address] [place] [address] Social History Tobacco Use Types Packs/Day Years Used Date Smoking Tobacco: Never Assessed Comments Unknown Sex and Gender Information Value Date Recorded Sex Assigned at Not on file Legal Sex Female 4:43 PM CDT Gender Identity Not on file Sexual Orientation Not on file documented as of this encounter Miscellaneous Notes * [employer]ner Conversion Note - Joann ProviderMD - 06/17/2018 12:40 AM DOCTOR OF OPTOMETRY [address] [place] [address] PERSON INFORMATION Name ALEXANDREA GUTIERREZ Age 32 Years 1985 Sex Female Language Palauan PCP MARTI ORELLANA (REF) Marital Status Single Med Service Cardiology Acct# Arrival 06/16/2018 19:48:00 Visit Reason Chest pain; Chest pain; CHEST PAIN, UNSPECIFIED Acuity 2 - Emergent LOS 000 04:52 Depart Date: 00:00 AM Address: [address] [address] Comment: PROVIDER INFORMATION Provider Role Assigned Unassigned SAVANNAH ESPINAL MD-[facility] ED Physician 06/16/2018 20:21:06 Talib Batista, FINAL INSPECTOR AND TESTER Nurse 06/16/2018 20:30:51 DIAGNOSIS PHYS DOC NOTES VITALS INFORMATION Vital Sign Triage Latest Temp Source Tympanic Tympanic Temp Mode Fahrenheit Fahrenheit Temp Fahrenheit 99.1 Deg F 99.1 Deg F Temp Celsius 02 Sat 100 % 96 % Respiratory Rate 18 Breaths/Min 16 Breaths/Min Peripheral Pulse Rate 60 bpm 60 bpm Apical Heart Rate Blood Pressure 105 mmHg / 65 mmHg 80 mmHg / 44 mmHg Comment: MEDICAL INFORMATION Allergy Info: Tape Medications: Comment: DISCHARGE INFORMATION Discharge Disposition: Admitted as Inpatient Discharge Location: PATIENT EDUCATION INFORMATION Instructions: Follow up: Comment: documented in this encounter Plan of Treatment Not on file documented as of this encounter Visit Diagnoses Not on filedocumented in this encounter Care Teams Disabilities Caregiver Relationship Specialty Start Date End Date Roopa Mcfarland FNP [address] [place] [address] PCP - General Nurse Practitioner 01/20/25 documented as of this encounter
--- OUTSIDE RECORDS SUMMARY | 2025-04-16 20:53 | XMS_ITS | Encounter Summary ---
Author Organization [employer] ([place], [place], [place], [place], [place]) Address [address] [place] [address] Care Team Providers Care Cd Reactor Operator Head Name Role Phone Roopa Mcfarland TORY Primary Care Provider Encounter Details Date Type Department Care Team (Late st Contact Info) Description 10/05/2018 Transcribed Document [facility] [place] [address] ProviderJoann MD [address] [place] [address] [phone] Social History Tobacco Use Types Packs/Day Years Used Date Smoking Tobacco: Never Assessed Comments Unknown Sex and Gender Information Value Date Recorded Sex Assigned at Not on file Legal Sex Female 4:43 PM CDT Gender Identity Not on file Sexual Orientation Not on file documented as of this encounter Miscellaneous Notes * Cerner Conversion Note - Joann Tello MD - 10/05/2018 4:20 PM CDT Patient Education Materials Follows:Medicine Hypotension Hypotension, commonly called low blood pressure, is when the force of blood pumping through your arteries is too weak. Arteries are blood vessels that carry blood from the heart throughout the body. When blood pressure is too low, you may not get enough blood to your brain or to the rest of your organs. This can cause weakness, light-headedness, rapid heartbeat, and fainting. Depending on the cause and severity, hypotension may be harmless (benign) or cause serious problems (critical). What are the causes? Possible causes of hypotension include: ??? Blood loss. ??? Loss of body fluids (dehydration). ??? Heart problems. ??? Hormone (endocrine) problems. ??? . ??? Severe infection. ??? Lack of certain nutrients. ??? Severe allergic reactions (anaphylaxis). ??? Certain medicines, such as blood pressure medicine or medicines that make the body lose excess fluids (diuretics). Sometimes, hypotension can be caused by not taking medicine as directed, such as taking too much of a certain medicine. What increases the risk? Certain factors can make you more likely to develop hypotension, including: ??? Age. Risk increases as you get older. ??? Conditions that affect the heart or the central nervous system. ??? Taking certain medicines, such as blood pressure medicine or diuretics. ??? Being . What are the signs or symptoms? Symptoms of this condition may include: ??? Weakness. ??? Light-headedness. ??? Dizziness. ??? Blurred vision. ??? Fatigue. ??? Rapid heartbeat. ??? Fainting, in severe cases. How is this diagnosed? This condition is diagnosed based on: ??? Your medical history. ??? Your symptoms. ??? Your blood pressure measurement. Your health care provider will check your blood pressure when you are: ? Lying down. ? Sitting. ? Standing. A blood pressure reading is recorded as two numbers, such as 120 over 80 (or 120/80). The first ( top ) number is called the systolic pressure. It is a measure of the pressure in your arteries as your heart beats. The second ( bottom ) number is called the diastolic pressure. It is a measure of the pressure in your arteries when your heart relaxes between beats. Blood pressure is measured in a unit called mm Hg. Healthy blood pressure for adults is 120/80. If your blood pressure is below 90/60, you may be diagnosed with hypotension. Other information or tests that may be used to diagnose hypotension include: ??? Your other vital signs, such as your heart rate and temperature. ??? Blood tests. ??? Tilt table test. For this test, you will be safely secured to a table that moves you from a lying position to an upright position. Your heart rhythm and blood pressure will be monitored during the test. How is this treated? Treatment for this condition may include: ??? Changing your diet. This may involve eating more salt (sodium) or drinking more water. ??? Taking medicines to raise your blood pressure. ??? Changing the dosage of certain medicines you are taking that might be lowering your blood pressure. ??? Wearing compression stockings. These stockings help to prevent blood clots and reduce swelling in your legs. In some cases, you may need to go to the hospital for: ??? Fluid replacement. This means you will receive fluids through an IV tube. ??? Blood replacement. This means you will receive donated blood through an IV tube (transfusion). ??? Treating an infection or heart problems, if this applies. ??? Monitoring. You may need to be monitored while medicines that you are taking wear off. Follow these instructions at home: Eating and drinking ??? Drink enough fluid to keep your urine clear or pale yellow. ??? Eat a healthy diet and follow instructions from your health care provider about eating or drinking restrictions. A healthy diet includes: ? Fresh fruits and vegetables. ? Whole grains. ? Lean meats. ? Low-fat dairy products. ??? Eat extra salt only as directed. Do not add extra salt to your diet unless your health care provider told you to do that. ??? Eat frequent, small meals. ??? Avoid standing up suddenly after eating. Medicines ??? Take bgie-kpk-gwvrovs and prescription medicines only as told by your health care provider. ? Follow instructions from your health care provider about changing the dosage of your current medicines, if this applies. ? Do not stop or adjust any of your medicines on your own. General instructions ??? Wear compression stockings as told by your health care provider. ??? Get up slowly from lying down or sitting positions. This gives your blood pressure a chance to adjust. ??? Avoid hot showers and excessive heat as directed by your health care provider. ??? Return to your normal activities as told by your health care provider. Ask your health care provider what activities are safe for you. ??? Do not use any products that contain nicotine or tobacco, such as cigarettes and e-cigarettes. If you need help quitting, ask your health care provider. ??? Keep all follow-up visits as told by your health care provider. This is important. Contact a health care provider if: ??? You vomit. ??? You have diarrhea. ??? You have a fever for more than 2?3 days. ??? You feel more thirsty than usual. ??? You feel weak and tired. Get help right away if: ??? You have chest pain. ??? You have a fast or irregular heartbeat. ??? You develop numbness in any part of your body. ??? You cannot move your arms or your legs. ??? You have trouble speaking. ??? You become sweaty or feel light-headed. ??? You faint. ??? You feel short of breath. ??? You have trouble staying awake. ??? You feel confused. This information is not intended to replace advice given to you by your health care provider. Make sure you discuss any questions you have with your health care provider. Document Released: 04/08/2006 Document Revised: 10/26/2016 Document Reviewed: 09/27/2016 [employer] Patient Education ? 2019 [employer]. Atrial Fibrillation Atrial fibrillation is a type of heartbeat that is irregular or fast (rapid). If you have this condition, your heart keeps quivering in a weird (chaotic) way. This condition can make it so your heart cannot pump blood normally. Having this condition gives a person more risk for stroke, heart failure, and other heart problems. There are different types of atrial fibrillation. Talk with your doctor to learn about the type that you have. Follow these instructions at home: ??? Take qhub-snv-iupomnv and prescription medicines only as told by your doctor. ??? If your doctor prescribed a blood-thinning medicine, take it exactly as told. Taking too much of it can cause bleeding. If you do not take enough of it, you will not have the protection that you need against stroke and other problems. ??? Do not use any tobacco products. These include cigarettes, chewing tobacco, and e-cigarettes. If you need help quitting, ask your doctor. ??? If you have apnea (obstructive sleep apnea), manage it as told by your doctor. ??? Do not drink alcohol. ??? Do not drink beverages that have caffeine. These include coffee, soda, and tea. ??? Maintain a healthy weight. Do not use diet pills unless your doctor says they are safe for you. Diet pills may make heart problems worse. ??? Follow diet instructions as told by your doctor. ??? Exercise regularly as told by your doctor. ??? Keep all follow-up visits as told by your doctor. This is important. Contact a doctor if: ??? You notice a change in the speed, rhythm, or strength of your heartbeat. ??? You are taking a blood-thinning medicine and you notice more bruising. ??? You get tired more easily when you move or exercise. Get help right away if: ??? You have pain in your chest or your belly (abdomen). ??? You have sweating or weakness. ??? You feel sick to your stomach (nauseous). ??? You notice blood in your throw up (vomit), poop (stool), or pee (urine). ??? You are short of breath. ??? You suddenly have swollen feet and ankles. ??? You feel dizzy. ??? Your suddenly get weak or numb in your face, arms, or legs, especially if it happens on one side of your body. ??? You have trouble talking, trouble understanding, or both. ??? Your face or your eyelid droops on one side. These symptoms may be an emergency. Do not wait to see if the symptoms will go away. Get medical help right away. Call your local emergency services (911 in the [place] Do not drive yourself to the hospital. This information is not intended to replace advice given to you by your health care provider. Make sure you discuss any questions you have with your health care provider. Document Released: 01/15/2009 Document Revised: 09/13/2016 Document Reviewed: 08/03/2015 [employer] Interactive Patient Education ? 2019 [employer] Forms Blood Pressure Record Sheet Your blood pressure on this visit to the emergency department or clinic is elevated. This does not necessarily mean you have high blood pressure (hypertension), but it does mean that your blood pressure needs to be rechecked. Many times your blood pressure can increase due to illness, pain, anxiety, or other factors. We recommend that you get a series of blood pressure readings done over a period of 5 days. It is best to get a reading in the morning and one in the evening. You should make sure to sit and relax for 1?5 minutes before the reading is taken. Write the readings down and make a follow-up appointment with your health care provider to discuss the results. If there is not a free clinic or a drug store with a kscng-qjsbzupk-yoehbw machine near you, you can purchase bjgfx-gkffqxwu-qyyvrt equipment from a drug store. Having one in the home allows you the convenience of taking your blood pressure while you are home and relaxed. Blood Pressure Log Date: ??? a.m. ??? p.m. Date: ??? a.m. ??? p.m. Date: ??? a.m. ??? p.m. Date: ??? a.m. ??? p.m. Date: ??? a.m. ??? p.m. This information is not intended to replace advice given to you by your health care provider. Make sure you discuss any questions you have with your health care provider. Document Released: 01/05/2004 Document Revised: 03/22/2017 Document Reviewed: 06/01/2014 [employer] Patient Education ? 2019 [employer] Nephrology How to Take Your Blood Pressure You can take your blood pressure at home with a machine. You may need to check your blood pressure at home: ??? To check if you have high blood pressure (hypertension). ??? To check your blood pressure over time. ??? To make sure your blood pressure medicine is working. Supplies needed: You will need a blood pressure machine, or monitor. You can buy one at a [employer] or online. When choosing one: ??? Choose one with an arm cuff. ??? Choose one that wraps around your upper arm. Only one finger should fit between your arm and the cuff. ??? Do not choose one that measures your blood pressure from your wrist or finger. Your doctor can suggest a monitor. How to prepare Avoid these things for 30 minutes before checking your blood pressure: ??? Drinking caffeine. ??? Drinking alcohol. ??? Eating. ??? Smoking. ??? Exercising. Five minutes before checking your blood pressure: ??? Pee. ??? Sit in a dining chair. Avoid sitting in a soft couch or armchair. ??? Be quiet. Do not talk. How to take your blood pressure Follow the instructions that came with your machine. If you have a digital blood pressure monitor, these may be the instructions: 1. Sit up straight. 2. Place your feet on the floor. Do not cross your ankles or legs. 3. Rest your left arm at the level of your heart. You may rest it on a table, desk, or chair. 4. Pull up your shirt sleeve. 5. Wrap the blood pressure cuff around the upper part of your left arm. The cuff should be 1 inch (2.5 cm) above your elbow. It is best to wrap the cuff around bare skin. 6. Fit the cuff snugly around your arm. You should be able to place only one finger between the cuff and your arm. 7. Put the cord inside the groove of your elbow. 8. Press the power button. 9. Sit quietly while the cuff fills with air and loses air. 10. Write down the numbers on the screen. 11. Wait 2?3 minutes and then repeat steps 1?10. What do the numbers mean? Two numbers make up your blood pressure. The first number is called systolic pressure. The second is called diastolic pressure. An example of a blood pressure reading is 120 over 80 (or 120/80). If you are an adult and do not have a medical condition, use this guide to find out if your blood pressure is normal: Normal ??? First number: below 120. ??? Second number: below 80. Elevated ??? First number: 120?129. ??? Second number: below 80. Hypertension stage 1 ??? First number: 130?139. ??? Second number: 80?89. Hypertension stage 2 ??? First number: 140 or above. ??? Second number: 90 or above. Your blood pressure is above normal even if only the top or bottom number is above normal. Follow these instructions at home: ??? Check your blood pressure as often as your doctor tells you to. ??? Take your monitor to your next doctor's appointment. Your doctor will: ? Make sure you are using it correctly. ? Make sure it is working right. ??? Make sure you understand what your blood pressure numbers should be. ??? Tell your doctor if your medicines are causing side effects. Contact a doctor if: ??? Your blood pressure keeps being high. Get help right away if: ??? Your first blood pressure number is higher than 180. ??? Your second blood pressure number is higher than 120. This information is not intended to replace advice given to you by your health care provider. Make sure you discuss any questions you have with your health care provider. Document Released: 03/21/2009 Document Revised: 03/06/2017 Document Reviewed: 09/14/2016 [employer] Patient Education ? 2019 [employer] Obstetrics and Gynecology Edema Edema is an abnormal buildup of fluids in the body tissues and under the skin. Swelling of the legs, feet, and ankles is a common symptom that becomes more likely as you get older. Swelling is also common in looser tissues, like around the eyes. When the affected area is squeezed, the fluid may move out of that spot and leave a dent for a few moments. This dent is called pitting edema. There are many possible causes of edema. Eating too much salt (sodium) and being on your feet or sitting for a long time can cause edema in your legs, feet, and ankles. Hot weather may make edema worse. Common causes of edema include: ??? Heart failure. ??? Liver or kidney disease. ??? Weak leg blood vessels. ??? Cancer. ??? An injury. ??? . ??? Medicines. ??? Being obese. ??? Low protein levels in the blood. Edema is usually painless. Your skin may look swollen or shiny. Follow these instructions at home: ??? Keep the affected body part raised (elevated) above the level of your heart when you are sitting or lying down. ??? Do not sit still or stand for long periods of time. ??? Do not wear tight clothing. Do not wear garters on your upper legs. ??? Exercise your legs to get your circulation going. This helps to move the fluid back into your blood vessels, and it may help the swelling go down. ??? Wear elastic bandages or support stockings to reduce swelling as told by your health care provider. ??? Eat a low-salt (low-sodium) diet to reduce fluid as told by your health care provider. ??? Depending on the cause of your swelling, you may need to limit how much fluid you drink (fluid restriction). ??? Take tzcy-jky-tiprdkl and prescription medicines only as told by your health care provider. Contact a health care provider if: ??? Your edema does not get better with treatment. ??? You have heart, liver, or kidney disease and have symptoms of edema. ??? You have sudden and unexplained weight gain. Get help right away if: ??? You develop shortness of breath or chest pain. ??? You cannot breathe when you lie down. ??? You develop pain, redness, or warmth in the swollen areas. ??? You have heart, liver, or kidney disease and suddenly get edema. ??? You have a fever and your symptoms suddenly get worse. Summary ??? Edema is an abnormal buildup of fluids in the body tissues and under the skin. ??? Eating too much salt (sodium) and being on your feet or sitting for a long time can cause edema in your legs, feet, and ankles. ??? Keep the affected body part raised (elevated) above the level of your heart when you are sitting or lying down. This information is not intended to replace advice given to you by your health care provider. Make sure you discuss any questions you have with your health care provider. Document Released: 04/08/2006 Document Revised: 05/11/2017 Document Reviewed: 05/11/2017 [employer] Patient Education ? 2019 [employer] Near-Syncope Near-syncope is when you suddenly get weak or dizzy, or you feel like you might pass out (faint). This is due to a lack of blood flow to the brain. During an episode of near-syncope, you may: ??? Feel dizzy or light-headed. ??? Feel sick to your stomach (nauseous). ??? See all white or all black. ??? Have cold, clammy skin. If you passed out, get help right away.Call your local emergency services (911 in the [place] Do not drive yourself to the hospital. Follow these instructions at home: Pay attention to any changes in your symptoms. Take these actions to help with your condition: ??? Have someone stay with you until you feel stable. ??? Do not drive, use machinery, or play sports until your doctor says it is okay. ??? Keep all follow-up visits as told by your doctor. This is important. ??? If you start to feel like you might pass out, lie down right away and raise (elevate) your feet above the level of your heart. Breathe deeply and steadily. Wait until all of the symptoms are gone. ??? Drink enough fluid to keep your pee (urine) clear or pale yellow. ??? If you are taking blood pressure or heart medicine, get up slowly and spend many minutes getting ready to sit and then stand. This can help with dizziness. ??? Take qqon-int-rdsfojq and prescription medicines only as told by your doctor. Get help right away if: ??? You have a very bad headache. ??? You have unusual pain in your chest, tummy, or back. ??? You are bleeding from your mouth or rectum. ??? You have black or tarry poop (stool). ??? You have a very fast or uneven heartbeat (palpitations). ??? You pass out one time or more than once. ??? You have jerky movements that you cannot control (seizure). ??? You are confused. ??? You have trouble walking. ??? You are very weak. ??? You have vision problems. These symptoms may be an emergency. Do not wait to see if the symptoms will go away. Get medical help right away. Call your local emergency services (911 in the [place] Do not drive yourself to the hospital. This information is not intended to replace advice given to you by your health care provider. Make sure you discuss any questions you have with your health care provider. Document Released: 09/24/2008 Document Revised: 05/22/2017 Document Reviewed: 12/21/2015 [employer] Patient Education ? 2019 [employer] Pulmonary Medicine Shortness of Breath, Adult Shortness of breath means you have trouble breathing. Your lungs are organs for breathing. Follow these instructions at home: Pay attention to any changes in your symptoms. Take these actions to help with your condition: ??? Do not smoke. Smoking can cause shortness of breath. If you need help to quit smoking, ask your doctor. ??? Avoid things that can make it harder to breathe, such as: ? Mold. ? Dust. ? Air pollution. ? Chemical smells. ? Things that can cause allergy symptoms (allergens), if you have allergies. ??? Keep your living space clean and free of mold and dust. ??? Rest as needed. Slowly return to your usual activities. ??? Take nvax-lqk-iexctfs and prescription medicines, including oxygen and inhaled medicines, only as told by your doctor. ??? Keep all follow-up visits as told by your doctor. This is important. Contact a doctor if: ??? Your condition does not get better as soon as expected. ??? You have a hard time doing your normal activities, even after you rest. ??? You have new symptoms. Get help right away if: ??? You have trouble breathing when you are resting. ??? You feel light-headed or you faint. ??? You have a cough that is not helped by medicines. ??? You cough up blood. ??? You have pain with breathing. ??? You have pain in your chest, arms, shoulders, or belly (abdomen). ??? You have a fever. ??? You cannot walk up stairs. ??? You cannot exercise the way you normally do. This information is not intended to replace advice given to you by your health care provider. Make sure you discuss any questions you have with your health care provider. Document Released: 09/24/2008 Document Revised: 04/25/2017 Document Reviewed: 04/25/2017 [employer] Interactive Patient Education ? 2019 [employer]. documented in this encounter Plan of Treatment Not on file documented as of this encounter Visit Diagnoses Not on filedocumented in this encounter Care Teams Cd Reactor Operator Head Relationship Specialty Start Date End Date Roopa Mcfarland FNP [address] [place] [address] PCP - General Nurse Practitioner 01/20/25 documented as of this encounter
--- OUTSIDE RECORDS SUMMARY | 2025-04-16 20:53 | XMS_ITS | Encounter Summary ---
Author Organization [employer] ([place], [place], [place], [place], [place]) Address [address] [place] [address] Care Team Providers Care Motion Study Analyst Name Role Phone Roopa Mcfarland TORY Primary Care Provider Encounter Details Date Type Department Care Team (Late st Contact Info) Description 10/04/2018 Transcribed Document [facility] [place] Family Medicine [facility] [place] [address] ProviderJoann MD [address] [place] [address] [id number] Social History Tobacco Use Types Packs/Day Years Used Date Smoking Tobacco: Never Assessed Comments Unknown Sex and Gender Information Value Date Recorded Sex Assigned at Not on file Legal Sex Female 4:43 PM CDT Gender Identity Not on file Sexual Orientation Not on file documented as of this encounter Miscellaneous Notes * Cerner Conversion Note - Joann ProviderMD - 10/04/2018 3:17 AM CDT Event Note Entered On: 10/04/2018 3:18 EDT Performed On: 10/04/2018 3:17 EDT by Genia Diehl RN Event Note Event Date/Time : 10/04/2018 3:17 EDT Description of Event : Patient wanted IV bumex to be turned off because it was causing her leg and body cramps. patient was susposed to have drip till 5am. Genia Diehl RN - 10/04/2018 3:17 EDT documented in this encounter Plan of Treatment Not on file documented as of this encounter Visit Diagnoses Not on filedocumented in this encounter Care Teams Motion Study Analyst Relationship Specialty Start Date End Date Roopa Mcfarland FNP [address] [place] [address] PCP - General Nurse Practitioner 01/20/25 documented as of this encounter
--- OUTSIDE RECORDS SUMMARY | 2025-04-16 20:53 | XMS_ITS | Encounter Summary ---
Author Organization [employer] ([place], [place], [place], [place], [place]) Address [address] [place] [address] Care Team Providers Care Cook Pickled Meat Name Role Phone Roopa Mcfarland TORY Primary Care Provider Encounter Details Date Type Department Care Team (Late st Contact Info) Description 06/24/2018 Transcribed Document [facility] – [place] Family Medicine [facility] [place] [address] ProviderJoann MD [address] [place] [id number] Social History Tobacco Use Types Packs/Day Years Used Date Smoking Tobacco: Never Assessed Comments Unknown Sex and Gender Information Value Date Recorded Sex Assigned at Not on file Legal Sex Female 4:43 PM CDT Gender Identity Not on file Sexual Orientation Not on file documented as of this encounter Miscellaneous Notes * Cerner Conversion Note - Joann ProviderMD - 06/24/2018 10:48 AM FINGERPRINT TECHNICIAN Cardiac and Pulmonary Outpatient Matthew Entered On: 06/24/2018 10:48 EST Performed On: 06/24/2018 10:48 EST by EDGARDO STOVALL automation technician and Pulmonary Outpatient Matthew Criteria Disqualifying for Phase 2 Cardiac Rehab : No qualifying diagnosis EDGARDO STOVALL RN - 06/24/2018 10:48 EST Electronically signed by Karthik [facility] Conversion Database Designer Daryl at 08/09/2022 9:23 AM CDT documented in this encounter Plan of Treatment Not on file documented as of this encounter Visit Diagnoses Not on filedocumented in this encounter Care Teams Cook Pickled Meat Relationship Specialty Start Date End Date Roopa Mcfarland, TORY [address] [place] [address] PCP - General Nurse Practitioner 01/20/25 documented as of this encounter
--- OUTSIDE RECORDS SUMMARY | 2025-04-16 20:53 | XMS_ITS | Encounter Summary ---
Author Organization [employer] ([place], [place], [place], [place], [place]) Address [address] [place] [address] Care Team Providers Care Batch Heat Treat Operator Name Role Phone Roopa Mcfarland TORY Primary Care Provider Encounter Details Date Type Department Care Team (Late st Contact Info) Description 10/05/2018 Transcribed Document [facility] – [place] [address] ProviderJoann MD [address] [place] [id number] Social History Tobacco Use Types Packs/Day Years Used Date Smoking Tobacco: Never Assessed Comments Unknown Sex and Gender Information Value Date Recorded Sex Assigned at Not on file Legal Sex Female 4:43 PM CDT Gender Identity Not on file Sexual Orientation Not on file documented as of this encounter Miscellaneous Notes * Cerner Conversion Note - Joann ProviderMD - 10/05/2018 4:21 PM CDT Stroke/Warfarin Instructions Entered On: 10/05/2018 16:21 EDT Performed On: 10/05/2018 16:21 EDT by Jennifer Garcia RN Stroke/Warfarin Instructions Stroke/TIA Discharge Ins : N/A Warfarin Discharge Ins : N/A Jennifer Garcia RN - 10/05/2018 16:21 EDT documented in this encounter Plan of Treatment Not on file documented as of this encounter Visit Diagnoses Not on filedocumented in this encounter Care Teams Batch Heat Treat Operator Relationship Specialty Start Date End Date Roopa Mcfarland, TORY [address] [place] [address] PCP - General Nurse Practitioner 01/20/25 documented as of this encounter
--- OUTSIDE RECORDS SUMMARY | 2025-04-16 20:53 | XMS_ITS | Encounter Summary ---
Author Organization [facility] [employer] [facility] ([place], [place], [place], [place], [place]) Address [address] [place] [address] Care Team Providers Care Latin Dancer Name Role Phone Roopa Mcfarland TORY Primary Care Provider Encounter Details Date Type Department Care Team (Late st Contact Info) Description 10/04/2018 Transcribed Document [facility] [place] [address] ProviderJoann MD [address] [place] [id number] Social History Tobacco Use Types Packs/Day Years Used Date Smoking Tobacco: Never Assessed Comments Unknown Sex and Gender Information Value Date Recorded Sex Assigned at Not on file Legal Sex Female 4:43 PM CDT Gender Identity Not on file Sexual Orientation Not on file documented as of this encounter Miscellaneous Notes * Cerner Conversion Note - Historical ProviderMD - 10/04/2018 9:[address] [facility] Entered On: 10/04/2018 10:18 EDT Performed On: 10/04/2018 9:20 EDT by MARIE EDWARDS, PT [facility] Physical Therapy Screen : 1 MARIE EDWARDS, PT - 10/04/2018 10:16 EDT documented in this encounter Plan of Treatment Not on file documented as of this encounter Visit Diagnoses Not on filedocumented in this encounter Care Teams Latin Dancer Relationship Specialty Start Date End Date Roopa Mcfarland, TORY [address] [place] [address] PCP - General Nurse Practitioner 01/20/25 documented as of this encounter
--- OUTSIDE RECORDS SUMMARY | 2025-04-16 20:53 | XMS_ITS | Encounter Summary ---
Author Organization [facility] ([place], [place], [place], [place], [place]) Address [address] [place] [address] Care Team Providers Care Panman Name Role Phone Roopa Mcfarland TORY Primary Care Provider Encounter Details Date Type Department Care Team (Late st Contact Info) Description 10/05/[address] [facility] Medicine [facility] [place] [address] ProviderJoann MD [address] [place] [id number] Social History Tobacco Use Types Packs/Day Years Used Date Smoking Tobacco: Never Assessed Comments Unknown Sex and Gender Information Value Date Recorded Sex Assigned at Not on file Legal Sex Female 4:43 PM CDT Gender Identity Not on file Sexual Orientation Not on file documented as of this encounter Miscellaneous Notes * Cerner Conversion Note - Joann Tello MD - 10/05/2018 4:21 PM CDT [place] [id number] BRENDA ALEXANDREA GOFFE :1985 Visit Time:10/03/2018 Your Visit Summary Your Care Team Admitting Physician - JOSE ALEJANDRO PEDROZA MD-CAR Attending Physician - JOSE ALEJANDRO PEDROZA MD-CAR Primary Care Physician - MARTI ORELLANA (REF), MD-INT Referring Physician - JOSE ALEJANDRO PEDROZA MD-CAR Your Diagnosis Autonomic orthostatic hypotension Hypotension, unspecified, Hypotension, unspecified Volume overload Discharge Vitals Temperature 36.6 ??C Heart Rate (Monitored) 60 Respiratory Rate 18 Blood Pressure 94/60 What to do next Follow-Up Appointments Follow Up with JOSE ALEJANDRO PEDROZA When Within 2 weeks Where: [address] [place] [address] [facility] (1) Medications What How Much When Instructions Next Dose bumetanide (bumetanide 1 mg oral tablet) 1 Tablet(s) Oral Every Day Duration: 90 Day(s) Refills: 1 Pickup at [place] [address] tomorrow midodrine (midodrine 10 mg oral tablet) 1 Tablet(s) Oral Three Times A Day Duration: 90 Day(s) Refills: 1 Pickup at [place] [address] [employer] Pharmacy Information [place] [address]: [address] [place] [address] [phone] Take your medications faithfully. Do NOT skip [...] cramping, rapid heartbeat, difficulty sleeping, and nervousness. Please dispose of unused and medications per your retail pharmacy guidance. Allergies Tape (itching) Immunizations This Visit No Immunizations Found Education Materials Blood Pressure Record Sheet Your blood pressure [...] make sure to sit and relax for 1???5 minutes before the reading is taken. Write the readings down and make a follow-up appointment with your health care provider to discuss the results. If there is not a free clinic or a drug store with a sisxo-kgryomnh-uaqrvl machine near you, you can purchase jauqv-rszfcpfx-nscnqn equipment from a drug store. Having one [...] 01/05/2004 Document Revised: 03/22/2017 Document Reviewed: 06/01/2014 Elsevier Interactive Patient Education ?? 2019 [employer] How to Take Your Blood Pressure You [...] monitor. You can buy one at a [employer] or online. When choosing one: ??? Choose [...] the numbers on the screen. 11. Wait 2???3 minutes and then repeat steps 1???10. What do the numbers mean? Two numbers [...] number: below 80. Elevated ??? First number: 120???129. ??? Second number: below 80. Hypertension stage 1 ??? First number: 130???139. ??? Second number: 80???89. Hypertension stage 2 ??? First number: 140 [...] 03/21/2009 Document Revised: 03/06/2017 Document Reviewed: 09/14/2016 [employer] Interactive Patient Education ?? 2019 [employer] Hypotension Hypotension, commonly called low blood pressure, [...] up suddenly after eating. Medicines ??? Take xlip-mfc-wympuya and prescription medicines only as told by [...] You have a fever for more than 2???3 days. ??? You feel more thirsty than [...] 04/08/2006 Document Revised: 10/26/2016 Document Reviewed: 09/27/2016 [employer] Interactive Patient Education ?? 2019 [employer] Shortness of Breath, Adult Shortness of breath [...] return to your usual activities. ??? Take byxo-bij-jiwzuvk and prescription medicines, including oxygen and inhaled [...] 09/24/2008 Document Revised: 04/25/2017 Document Reviewed: 04/25/2017 [employer] Interactive Patient Education ?? 2019 [employer] Edema Edema is an abnormal buildup of [...] fluid you drink (fluid restriction). ??? Take mwae-mof-znkikdg and prescription medicines only as told by [...] 04/08/2006 Document Revised: 05/11/2017 Document Reviewed: 05/11/2017 [employer] Interactive Patient Education ?? 2019 [employer] Near-Syncope Near-syncope is when you suddenly [...] This can help with dizziness. ??? Take joho-sfa-qdedsgc and prescription medicines only as told by [...] 09/24/2008 Document Revised: 05/22/2017 Document Reviewed: 12/21/2015 [employer] Interactive Patient Education ?? 2019 [employer] Atrial Fibrillation Atrial fibrillation is a type [...] Follow these instructions at home: ??? Take nspc-dwm-hsbnuwk and prescription medicines only as told by [...] 01/15/2009 Document Revised: 09/13/2016 Document Reviewed: 08/03/2015 [employer] Interactive Patient Education ?? 2019 [employer]. midodrine (MY gonzalez alexei) What is the most important information I should know about midodrine? You should not use midodrine if you have severe heart disease, overactive thyroid, an adrenal gland tumor, kidney disease, if you are unable to urinate, or if your blood pressure is high even while lying down. Midodrine can increase blood pressure even when you are at rest. This medicine should be used only if you have severely low blood pressure that affects your daily life. Midodrine may not improve your ability to perform daily activities. What is midodrine? Midodrine works by constricting (narrowing) the blood vessels and increasing blood pressure. Midodrine is used to treat low blood pressure (hypotension) that causes severe dizziness or a light-headed feeling, like you might pass out. This medicine is for use only when low blood pressure affects daily life. Midodrine may not improve your ability to perform daily activities. Midodrine may also be used for purposes not listed in this medication guide. What should I discuss with my healthcare provider before taking midodrine? You should not use midodrine if you are allergic to it, or if you have: ? severe heart disease; ?? kidney disease, or if you are unable to urinate; ?? pheochromocytoma (tumor of the adrenal gland); ?? overactive thyroid; or ?? high blood pressure even while lying down. To make sure midodrine is safe for you, tell your doctor if you have: ? diabetes; ?? glaucoma or a history of vision problems; ?? liver disease; or ?? a history of kidney disease. It is not known whether this medicine will harm an unborn baby. Tell your doctor if you are or plan to become . It is not known whether midodrine passes into breast milk or if it could harm a nursing baby. Tell your doctor if you are breast-feeding a baby. How should I take midodrine? Follow all directions on your prescription label. Do not take this medicine in larger or smaller amounts or for longer than recommended. Midodrine is usually taken 3 times per day, with doses spaced at least 3 hours apart. Take your last dose of the day within 3 or 4 hours before bedtime. You may take midodrine with or without food. Take this medicine during your normal waking hours, when your are most likely to be upright and not lying down or napping. Ask your doctor about how to take this medicine if you normally lie down during the day. Midodrine can increase your blood pressure even while you are lying down or sleeping (when blood pressure is usually lowest). Long-term high blood pressure (hypertension) can lead to serious medical problems. Follow your doctor's instructions about the best way to position your body while you are laying down or sleeping. You may need to keep your head elevated to help prevent high blood pressure. Your blood pressure will need to be checked before and during treatment with midodrine. Check your blood pressure while you are lying down, and check it again with your head elevated. Your kidney and liver function may also need to be checked. Midodrine is only part of a treatment program that may also include lifestyle changes, wearing support stockings on your legs, and possibly special medical care. Follow your doctor's instructions very closely. Store at room temperature away from moisture and heat. What happens if I miss a dose? Take the missed dose as soon as you remember. Skip the missed dose if it is almost time for your next scheduled dose. Do not take extra medicine to make up the missed dose. You may need to skip a dose if you will be resting or lying down for a long period of time during your normal waking hours. Talk to your doctor about how to adjust your dose schedule if needed. What happens if I overdose? Seek emergency medical attention or call the Poison Help line at . Symptoms of a midodrine overdose may include increased blood pressure (flushing, headache, pounding heartbeat, blurred vision), goosebumps, feeling cold, or trouble urinating. What should I avoid while taking midodrine? Avoid taking a dose within less than 3 hours before your normal bedtime. Ask a doctor or pharmacist before using any zwec-cer-qyxdofh diet pills, or cough/cold medicine that contains phenylephrine or pseudoephedrine. These medicines may raise your blood pressure. What are the possible side effects of midodrine? Get emergency medical help if you have any of these signs of an allergic reaction: hives; difficult breathing; swelling of your face, lips, tongue, or throat. Stop taking midodrine and call your doctor at once if you have: ? severely slowed heart rate--weak pulse, severe dizziness or light-headed feeling; or ?? dangerously high blood pressure--severe headache, pounding sensation in your ears ('hearing' your heartbeats), blurred vision, buzzing in your ears, anxiety, confusion, chest pain, shortness of breath, uneven heartbeats, seizure. Common side effects may include: ? chills, goosebumps; ?? numbness, tingling, or itching (especially in your scalp); ?? headache, dizziness, tired feeling; ?? nausea; or ?? increased urination, painful or difficult urination, or sudden urge to urinate. This is not a complete list of side effects and others may occur. Call your doctor for medical advice about side effects. You may report side effects to FDA at 2-139-ITB-6380. What other drugs will affect midodrine? Taking midodrine with other drugs that constrict blood vessels can further increase your blood pressure. Tell your doctor about all your current medicines and any you start or stop using, especially: ? digoxin, digitalis, droxidopa, fludrocortisone ?? an antidepressant; ?? asthma medicine; ?? heart or blood pressure medicine; ?? migraine headache medicine; ?? thyroid medicine such as levothyroid or Synthroid; ?? drugs to treat high blood pressure or a prostate disorder--prazosin, terazosin, or doxazosin; or ?? an MAO inhibitor--isocarboxazid, linezolid, methylene blue injection, phenelzine, rasagiline, selegiline, tranylcypromine. This list is not complete. Other drugs may interact with midodrine, including prescription and oqhu-zpp-ypqmjtk medicines, vitamins, and herbal products. Not all possible interactions are listed in this medication guide. Where can I get more information? Your pharmacist can provide more information about midodrine. Remember, keep this and all other medicines out of the reach of children, never share your medicines with others, and use this medication only for the indication prescribed. Every effort has been made to ensure that the information provided by NPS. ('[employer]') is accurate, up-to-date, and complete, but no guarantee is made to that effect. Drug information contained herein may be time sensitive. [employer] information has been compiled for use by healthcare practitioners and consumers in the [place] and therefore [employer] does not warrant that uses outside of the [place] are appropriate, unless specifically indicated otherwise. [employer]s drug information does not endorse drugs, diagnose patients or recommend therapy. [employer] drug information is an informational resource designed to assist licensed healthcare practitioners in caring for their patients and/or to serve consumers viewing this service as a supplement to, and not a substitute for, the expertise, skill, knowledge and judgment of healthcare practitioners. The absence of a warning for a given drug or drug combination in no way should be construed to indicate that the drug or drug combination is safe, effective or appropriate for any given patient. [employer] does not assume any responsibility for any aspect of healthcare administered with the aid of information [employer] provides. The information contained herein is not intended to cover all possible uses, directions, precautions, warnings, drug interactions, allergic reactions, or adverse effects. If you have questions about the drugs you are taking, check with your doctor, nurse or pharmacist. Copyright 1011-9570 NPS. Version: 4.01. Revision Date: 06/06/2016.bumetanide (oral/injection) (byamber siddiqi) Bumex What is the most important information I should know about bumetanide? You should not use bumetanide if you are unable to urinate, if you have severe kidney or liver disease, if you are severely dehydrated, or if you have an electrolyte imbalance (low potassium or magnesium). What is bumetanide? Bumetanide is diuretic that is used to treat fluid retention (edema) in people with congestive heart failure, liver disease, or a kidney disorder such as nephrotic syndrome. Bumetanide may also be used for purposes not listed in this medication guide. What should I discuss with my healthcare provider before using bumetanide? You should not use bumetanide if you are allergic to it, or if you have: ? severe kidney disease or are unable to urinate; ?? severe liver disease or cirrhosis; ?? severe dehydration; or ?? an electrolyte imbalance (such as low levels of potassium or magnesium in your blood). Tell your doctor if you have ever had: ? a heart rhythm disorder; ?? liver disease; ?? kidney disease (or if you are on dialysis); ?? gout; ?? an allergy to sulfa drugs; or ?? if you are on a low-salt diet. Tell your doctor if you are or breast-feeding. Bumetanide is not approved for use by anyone younger than 18 years old. How should I take bumetanide? Follow all directions on your prescription label and read all medication guides or instruction sheets. Your doctor may occasionally change your dose. Use the medicine exactly as directed. Bumetanide injection is injected into a muscle, or given as an infusion into a vein. A healthcare provider will give you this injection if you are unable to take the medicine by mouth. Bumetanide will make you urinate more often and you may get dehydrated easily. Follow your doctor's instructions about taking potassium supplements or getting enough salt and potassium in your diet. Call your doctor if you are sick with vomiting or diarrhea, or if you are sweating more than usual. You can easily become dehydrated while taking bumetanide. This can lead to very low blood pressure, a serious electrolyte imbalance, or kidney failure. You will need frequent medical tests. Store at room temperature away from heat, moisture, and light. What happens if I miss a dose? Bumetanide is sometimes used only once, so you may not be on a dosing schedule. If you are on a dosing schedule, take the medicine as soon as you can, but skip the missed dose if it is almost time for your next dose. Do not take two doses at one time. What happens if I overdose? Seek emergency medical attention or call the Poison Help line at . Overdose symptoms may include extreme dizziness or weakness, confusion, loss of appetite, stomach cramps, and vomiting. What should I avoid while taking bumetanide? Avoid becoming dehydrated. Follow your doctor's instructions about the type and amount of liquids you should drink while you are taking bumetanide. What are the possible side effects of bumetanide Get emergency medical help if you have signs of an allergic reaction: hives; difficult breathing; swelling of your face, lips, tongue, or throat. Call your doctor at once if you have: ? hearing problems; ?? confusion, hallucinations, problems with thought or memory; ?? trouble speaking or understanding what is said to you; ?? unusual weakness; ?? twitching, or a seizure; ?? weak or shallow breathing; ?? easy bruising, unusual bleeding, purple or red spots under your skin; ?? low magnesium--dizziness, irregular heartbeats, feeling jittery, muscle cramps, muscle spasms, cough or choking feeling; ?? low potassium level--leg cramps, constipation, irregular heartbeats, fluttering in your chest, increased thirst or urination, numbness or tingling, muscle weakness or limp feeling; or ?? dehydration symptoms--feeling very thirsty or hot, being unable to urinate, heavy sweating, or hot and dry skin. Common side effects may include: ? muscle cramps; ?? dizziness; ?? low blood presure; ?? nausea; or ?? headache. This is not a complete list of side effects and others may occur. Call your doctor for medical advice about side effects. You may report side effects to FDA at 2-156-TKW-6281. What other drugs will affect bumetanide? Bumetanide can harm your kidneys, especially if you also use certain medicines for infections, cancer, osteoporosis, organ transplant rejection, bowel disorders, or pain or arthritis (including aspirin, Tylenol, Advil, and Aleve). Tell your doctor about all your other medicines, especially: ? lithium; ?? digoxin; ?? probenecid; ?? indomethacin; ?? blood pressure medication; or ?? any other diuretic. This list is not complete. Other drugs may affect bumetanide, including prescription and eins-pek-oacndfz medicines, vitamins, and herbal products. Not all possible drug interactions are listed here. Where can I get more information? Your pharmacist can provide more information about bumetanide. Remember, keep this and all other medicines out of the reach of children, never share your medicines with others, and use this medication only for the indication prescribed. Every effort has been made to ensure that the information provided by NPS. ('[employer]') is accurate, up-to-date, and complete, but no guarantee is made to that effect. Drug information contained herein may be time sensitive. [employer] information has been compiled for use by healthcare practitioners and consumers in the [place] and therefore [employer] does not warrant that uses outside of the [place] are appropriate, unless specifically indicated otherwise. [employer]s drug information does not endorse drugs, diagnose patients or recommend therapy. [employer] drug information is an informational resource designed to assist licensed healthcare practitioners in caring for their patients and/or to serve consumers viewing this service as a supplement to, and not a substitute for, the expertise, skill, knowledge and judgment of healthcare practitioners. The absence of a warning for a given drug or drug combination in no way should be construed to indicate that the drug or drug combination is safe, effective or appropriate for any given patient. [employer] does not assume any responsibility for any aspect of healthcare administered with the aid of information [employer] provides. The information contained herein is not intended to cover all possible uses, directions, precautions, warnings, drug interactions, allergic reactions, or adverse effects. If you have questions about the drugs you are taking, check with your doctor, nurse or pharmacist. Copyright 3999-3820 NPS. Version: 7.01. Revision Date: 04/24/2018. Emergency Awareness and Preventative Care STROKE is an EMERGENCY Every Minute Counts Act FAST and Check for these signs: FACE Does the face look uneven? ARM Does one arm drift down? SPEECH Does their speech sound strange? TIME Call at any sign of stroke Stroke Risk Factors Atrial Fibrillation (irregular heartbeat) Diabetes Family history of stroke Heart Disease Heavy alcohol use High Blood Pressure High Cholesterol Physical inactivity and obesity Smoking Cigarette Smoking The facts are clear, cigarette smoking will shorten your life. Smoking can cause many illnesses along the way. As a healthcare provider, we recommend that you stop smoking. Assistance with quitting is available by contacting 1-713-JNYZ-NOW. This is a free resource providing counseling, support, and referral. Or you may contact your personal physician. National Suicide Prevention Lifeline: The National Suicide Prevention Lifeline is a national network of local crisis centers that provides free and confidential emotional support to people in suicidal crisis or emotional distress 24 hours a day, 7 days a week. Don't Wait! Stop a Heart Attack Before it Starts What is a heart attack? A heart attack is damage or to a part of the heart from severely decreased or lack of blood flow to the heart. Over time, arteries can become narrow from the buildup of fat and cholesterol, which is called plaque. The plaque can rupture causing a blood clot to form. When the blood clot forms, the artery can become severely narrowed or completely blocked, causing a heart attack. Heart attack is the leading cause of in the [place]. 85% of muscle damage occurs within the first 2 hours. Delay in the recognition of heart attack symptoms increases the chances of . Know the early symptoms of a heart attack: Nausea Feeling of fullness in chest Jaw Pain Pain that travels down one or both arms Fatigue/being tired Anxiety Back Pain Chest pressure, squeezing, or discomfort Shortness of breath Sweating, or a cold sweat Feeling of impending doom There are unusual signs of a heart attack, too! Women, the elderly, and diabetics may present with atypical symptoms: Fainting/dizziness Weakness Confusion Risk Factors for a Heart Attack Some heart disease risk factors, such as age and family history, cannot be changed. Others, like smoking and lack of exercise, can be changed. Smoking High Cholesterol High Blood Pressure Family History Obesity Age Gender (Males are at higher risk) Lack of Exercise Diabetes Diet Stress Excessive Alcohol Intake If you or someone you know is experiencing the signs and symptoms of a heart attack, DON???T DELAY. Call immediately and seek help. If someone collapses, perform CPR! Do not attempt to drive if you are having symptoms of heart attack. Hands-Only CPR Why Hands-Only CPR? Hands-Only CPR has been shown to be as effective as conventional CPR for cardiac arrests that occur outside of a hospital. Survival depends on immediately receiving CPR from someone nearby. How do you perform Hands-Only CPR? There are two easy steps: Call if you see a teen or adult collapse Push hard and fast in the center of the chest at a beat of 100 beats per minute. Save a life! 4 WAYS TO GET AHEAD OF SEPSIS SEPSIS is a MEDICAL EMERGENCY. Time matters! Infections put you and your family at risk for a life-threatening condition called sepsis. Sepsis is the body's extreme response to an infection. It is life-threatening, and without timely treatment, sepsis can rapidly lead to tissue damage, organ failure, and . Sepsis happens when an infection you already have-in your skin, lungs, urinary tract or somewhere else-triggers a chain reaction throughout your body. 1 [...] sepsis or if you have an infection that is not getting better or is getting worse. To learn more about sepsis and how to prevent infections, visit www.cdc.gov/sepsis. Patient Portal Reminder: Be sure to sign up for the [employer] patient portal, which gives you 12/11 access to your medical information ??? including these discharge instructions ??? using your computer, smartphone, or tablet. Just go to [employer] to get started. Questions? Call . Test Results Laboratory or Other Results This Visit (last charted value for your 10/03/2018 visit) Hematology 10/03/18 17:58:00 WBC: 8.3 K/uL -- Normal range between ( 3.9 and 10.0 ) RBC: 4.40 Million/uL -- Normal range between ( 3.93 and 5.22 ) Hct: 37.8 % -- Normal range between ( 34.1 and 44.9 ) Hgb: 12.1 Gram/dL -- Normal range between ( 11.2 and 15.7 ) Platelet Count: 301 K/uL -- Normal range between ( 163 and 369 ) MCH: 27.5 pg -- Normal range between ( 25.6 and 32.2 ) MCHC: 32.0 Gram/dL -- Normal range between ( 32.3 and 36.5 ) MCV: 85.9 fL -- Normal range between ( 79.0 and 94.8 ) Slide Review: No Eos %: 4.0 % -- Normal range between ( 1.0 and 7.0 ) Story #: 0.53 K/uL -- Normal range between ( 0.24 and 0.82 ) Eos #: 0.33 K/uL -- Normal range between ( 0.04 and 0.54 ) Story %: 6.4 % -- Normal range between ( 4.7 and 12.5 ) Baso %: 0.5 % -- Normal range between ( 0.0 and 1.0 ) Baso #: 0.04 K/uL -- Normal range between ( 0.01 and 0.08 ) RDW: 12.4 % -- Normal range between ( 11.6 and 14.4 ) Neut %: 57.3 % -- Normal range between ( 34.0 and 71.0 ) Neut #: 4.75 K/uL -- Normal range between ( 1.56 and 6.13 ) Lymph %: 31.6 % -- Normal range between ( 19.3 and 53.0 ) Lymph #: 2.62 K/uL -- Normal range between ( 1.18 and 3.74 ) MPV: 11.9 fL -- Normal range between ( 9.4 and 12.4 ) IG#: 0 x10(3)/uL IG%: 0 % -- Normal range between ( 0 and 1 ) Urinalysis 10/03/18 18:06:00 Urine Nitrite: Negative Urine Leukocyte Esterase: Negative Urine Appearance: Clear Urine Glucose Dipstick: Negative Urine Blood Dipstick: Negative Urine Type: U CleanCatch Urine Urobilinogen Dipstick: 0.2 EU/dL -- Normal range between ( 0.2 and 1.0 ) Urine Protein Dipstick: Negative Urine Color: Yellow Urine Ketones Dipstick: Negative Urine pH Dipstick: 5.5 -- Normal range between ( 6.0 and 8.0 ) Urine Bilirubin Dipstick: Negative Urine Specific [place]: 1.015 -- Normal range between ( 1.005 and 1.030 ) Microbiology 10/03/18 16:44:00 MRSA Surveillance: See Result Urine Chemistry 10/04/18 21:15:00 Protein Ur 24Hr: <150.0 mg/24Hr -- Normal range between ( 0.0 and 149.0 ) Volume Ur 24 Hr: 3000 mL 10/03/18 18:06:00 Osmolality Urine: 681 mOsm/kg -- Normal range between ( 250 and 900 ) Sodium Ur [place]: 135 mMole/Liter General Chemistry 10/04/18 05:22:00 Creatinine Level: 0.94 mg/dL -- Normal range between ( 0.55 and 1.02 ) Sodium Level: 138 mmol/L -- Normal range between ( 136 and 146 ) Potassium Level: 4.3 mmol/L -- Normal range between ( 3.5 and 5.1 ) Chloride Level: 100 mmol/L -- Normal range between ( 102 and 112 ) Carbon Dioxide Level: 30 mmol/L -- Normal range between ( 21 and 32 ) Anion Gap: 12 -- Normal range between ( 9 and 20 ) Bun/Creatinine: 21.3 -- Normal range between ( 8.0 and 20.0 ) Calcium Level: 8.4 mg/dL -- Normal range between ( 8.5 and 10.1 ) eGFR : >60 mL/min/1.73m2 eGFR NonAfrican: >60 mL/min/1.73m2 Glucose Level: 123 mg/dL -- Normal range between ( 74 and 106 ) Blood Urea Nitrogen: 20 mg/dL -- Normal range between ( 7 and 22 ) 10/03/18 17:58:00 Bilirubin Total: 0.3 mg/dL -- Normal range between ( 0.2 and 1.3 ) A/G Ratio: 1.0 -- Normal range between ( 1.1 and 2.5 ) ALT: 23 Units/Liter -- Normal range between ( 12 and 78 ) AST: 20 Units/Liter -- Normal range between ( 5 and 37 ) Globulin: 3.4 Gram/dL -- Normal range between ( 1.5 and 4.5 ) Alk Phos: 97 Units/Liter -- Normal range between ( 27 and 136 ) Magnesium Level: 2.0 mg/dL -- Normal range between ( 1.5 and 2.4 ) Osmolality Serum: 293 mOsm/kg -- Normal range between ( 280 and 300 ) Protein Total: 6.9 Gram/dL -- Normal range between ( 6.4 and 8.2 ) Albumin Level: 3.5 Gram/dL -- Normal range between ( 3.4 and 5.0 ) Cardiac Specific Markers 10/04/18 05:22:00 Troponin I Ultra: <0.015 ng/mL -- Normal range between ( 0.015 and 0.045 ) 10/03/18 17:58:00 ProBNP: 34 pg/mL -- Normal range between ( 0 and 125 ) Coagulation 10/03/18 17:58:00 INR: 1.0 -- Normal range between ( 0.9 and 1.1 ) PTT: 25.5 Second(s) -- Normal range between ( 24.5 and 30.1 ) PT: 10.3 Second(s) -- Normal range between ( 9.6 and 11.5 ) Lipid Studies 10/04/18 05:22:00 Cholesterol Tot: 203 mg/dL -- Normal range between ( 0 and 199 ) Cholesterol HDL: 79.0 mg/dL Cholesterol LDL Calculation: 114.6 mg/dL -- Normal range between ( 0.0 and 99.0 ) Cholesterol VLDL Calculation: 9.4 mg/dL -- Normal range between ( 5.0 and 40.0 ) Cholesterol/HDL Ratio: 2.6 -- Normal range between ( 0.0 and 3.2 ) Triglyceride: 47 mg/dL -- Normal range between ( 0 and 249 ) LDL/HDL Ratio: 1.5 -- Normal range between ( 0.0 and 3.2 ) Endocrinology 10/04/18 05:22:00 Cortisol Level: 26.1 mcg/dL 10/03/18 17:58:00 TSH: 3.960 mcInt Units/mL -- Normal range between ( 0.358 and 3.740 ) T3 Total: 0.8 ng/mL -- Normal range between ( 0.6 and 1.8 ) FT4: 1.02 ng/dL -- Normal range between ( 0.76 and 1.46 ) Protein & Immunoglobulin Studies 10/04/18 21:15:00 Protein Ur Joie: <5 mg/dL Computed Tomography 10/04/18 09:19:06 CT Abdomen Pelvis WO: CT Abdomen Pelvis WO Patient Name:ALEXANDREA GUTIERREZ I have received and understand this information and was given the opportunity to ask questions. Patient/Epic Manager Name: Patient/Epic Manager Signature: Relationship to Patient: Clinician/Hospital Epic Manager Signature: Date: documented in this encounter Plan of Treatment Not on file documented as of this encounter Visit Diagnoses Not on filedocumented in this encounter Care Teams Panman Relationship Specialty Start Date End Date Roopa Mcfarland DATABASE TECHNICIAN [address] [place] [address] PCP - General Nurse Practitioner 01/20/25 documented as of this encounter
--- OUTSIDE RECORDS SUMMARY | 2025-04-16 20:53 | XMS_ITS | Encounter Summary ---
Author Organization [facility] ([place], [place], [place], [place], [place]) Address [address] [place] [address] Care Team Providers Care Dictionary Editor Name Role Phone Roopa Mcfarland TORY Primary Care Provider Encounter Details Date Type Department Care Team (Late st Contact Info) Description 10/05/2018 Transcribed Document [facility] [place] [facility] [place] [address] ProviderJoann MD [address] [place] [id number] Social History Tobacco Use Types Packs/Day Years Used Date Smoking Tobacco: Never Assessed Comments Unknown Sex and Gender Information Value Date Recorded Sex Assigned at Not on file Legal Sex Female 4:43 PM CDT Gender Identity Not on file Sexual Orientation Not on file documented as of this encounter Miscellaneous Notes * Cerner Conversion Note - Joann Tello MD - 10/05/2018 2:20 PM CDT Patient: ALEXANDREA GUTIERREZ Age: 33 years Sex: Female : 1985 Associated Diagnoses: None Author: JOSE ALEJANDRO PEDROZA MD-CAR Subjective Adeqate diuresis- off 7 liters and back to baseline volume status., feels better, dizzy standing up which is her long standing issue with autonomic dysfunction and chronic orthostatic hypotension. Health Status Allergies: Allergic Reactions (Selected) High Tape- Itching., Allergies (1) Active Reaction Tape itching Current medications: (Selected) Inpatient Medications Ordered Colace: 100 mg, Oral, BID Normal Saline Flush: 10 mL, IV Push, Q12H Normal Saline Flush: 10 mL, IV Push, See Comment, PRN: IV Use Sodium Chloride 0.9% intravenous solution 1,000 mL: 20 mL/Hr, IntraVENous Synthroid: 75 mcg, Oral, Daily Tenormin: 25 mg, Oral, Daily Zofran: 4 mg, IV Push, Q6H, PRN: Nausea acetaminophen-HYDROcodone 325 mg-5 mg oral tablet: 1 Tab, Oral, Q4H, PRN: Pain (Moderate 4-6) albuterol: 1 Puff, Inhalation, Q4H, PRN: Shortness of Breath bumetanide injection 12 mg [1 mg/Hr] + Sodium Chloride 0.9% intravenous solution 72 mL: 10 mL/Hr, IntraVENous magnesium sulfate: 2 Gram, 50 mL, 25 mL/Hr, IV Piggyback, See Comment, PRN: Other (See Comment) midodrine: 5 mg, Oral, TID With Meals morphine: 2 mg, IV Push, Q5Min, PRN: Pain (Severe 7-10) potassium chloride 10 mEq/50 mL intravenous solution: 10 mEq, 100 mL, 100 mL/Hr, IV Piggyback, Q1H, PRN: Other (See Comment) potassium chloride 20 mEq oral tablet, extended release: 40 mEq, 2 Tab, Oral, See Comment, PRN: Other (See Comment) potassium chloride 20 mEq oral tablet, extended release: 60 mEq, 3 Tab, Oral, See Comment, PRN: Other (See Comment) Documented Medications Documented Synthroid 75 mcg (0.075 mg) oral tablet: 1 Tab, Oral, Daily, 90 Tab, 0 Refill(s) albuterol: 90 mcg, Inhalation, Q4H, 0 Refill(s) aspirin 81 mg oral tablet: 1 Tab, Oral, Daily, 0 Refill(s) atenolol 25 mg oral tablet: See Instructions, 1 Tab Oral Daily, 0 Refill(s) nitroglycerin: 0.4 mg, SubLINgual, Q5Min, 0 Refill(s) torsemide 10 mg oral tablet: See Instructions, 1 Tab Oral Daily, 0 Refill(s), Home Medications (6) Active albuterol 90 mcg, Inhalation, Q4H aspirin 81 mg oral tablet 81 mg = 1 Tab, Oral, Daily atenolol 25 mg oral tablet See Instructions nitroglycerin 0.4 mg, SubLINgual, Q5Min Synthroid 75 mcg (0.075 mg) oral tablet 75 mcg = 1 Tab, Oral, Daily torsemide 10 mg oral tablet See Instructions , Medications (16) Active Scheduled: (5) #NaCl 0.9% *FLUSH* inj 10 mL 10 mL, IV Push, Q12H atenolol 25 mg tab 25 mg 1 Tab, Oral, Daily docusate sodium 100 mg cap 100 mg 1 Cap, Oral, BID levothyroxine 75 mcg tab 75 mcg 1 Tab, Oral, Daily midodrine 5 mg tab 5 mg 1 Tab, Oral, TID With Meals Continuous: (2) bumetanide 12 mg [1 mg/Hr] + NaCl 0.9% 72 mL 72 mL, IntraVENous, 10 mL/Hr NaCl 0.9% 1,000 mL 1,000 mL, IntraVENous, 20 mL/Hr PRN: (9) #NaCl 0.9% *FLUSH* inj 10 mL 10 mL, IV Push, See Comment acetaminophen/HYDROcodone 325/5 mg tab 1 Tab, Oral, Q4H albuterol 90 mcg/1 puff inh 6.7 g 1 Puff, Inhalation, Q4H magnesium sulfate 2 Gram 50 mL, IV Piggyback, See Comment morphine 2 mg/1 ml inj 2 mg 1 mL, IV Push, Q5Min ondansetron 4 mg/2 mL inj 4 mg 2 mL, IV Push, Q6H potassium chloride 10 mEq 100 mL, IV Piggyback, Q1H potassium chloride CR 20 mEq tab 40 mEq 2 Tab, Oral, See Comment potassium chloride CR 20 mEq tab 60 mEq 3 Tab, Oral, See Comment Problem list: Medical Hypothyroid / SNOMED CT [id number] / Confirmed MVP (mitral valve prolapse) / SNOMED CT [id number] / Confirmed PAF (paroxysmal atrial fibrillation) / SNOMED CT [id number] / Confirmed SSS (sick sinus syndrome) / SNOMED CT [id number] / Confirmed Resolved: Obesity / SNOMED CT [id number], Active Problems (12) Cardiac pacemaker Delivered by section H/O gastric bypass H/O: hysterectomy History of cholecystectomy Hypothyroid MVP (mitral valve prolapse) MVP (mitral valve prolapse) PAF (paroxysmal atrial fibrillation) SSS (sick sinus syndrome) Tachycardia Thyroid disease Objective VS/Measurements Vitals Signs (last 24 hrs) Last Charted Minimum Maximum Temp 98 (SEP 16 10:43) 97.5 (SEP 15 22:16) 98.3 (SEP 15 17:47) Mon HR 93 (ECTOR 16 10:43) 60 (SEP 15 18:00) 93 (ECTOR 16 10:43) Resp Rate H 27 (ECTOR 16 10:43) 18 (SEP 15 18:00) H 27 (SEP 16 10:43) SBP 100 (ECTOR 16 10:43) L 85 (ECTOR 15 15:00) 100 (ECTOR 16 10:43) DBP 65 (ECTOR 16 10:43) L 45 (SEP 15 15:00) 65 (ECTOR 16 10:43) MAP 73 (SEP 16 10:43) 62 (SEP 15 22:16) 73 (ECTOR 16 10:43) SpO2 97 (ECTOR 16 10:43) 96 (SEP 15 18:00) 98 (SEP 15 17:47) General: Alert and oriented, No acute distress. Neck: No carotid bruit, No jugular venous distention. Respiratory: Lungs are clear to auscultation, Respirations are non-labored. Cardiovascular: Normal rate, Regular rhythm, No murmur, No edema. Gastrointestinal: Non-distended. Musculoskeletal: Normal ROM in bed. Integumentary: Warm, Dry, No rash. Neurologic: No deficits appreciated. Psychiatric: Cooperative, Appropriate mood & affect. Impression and Plan Volume Overload - Normal ECHO, CT Chest/Abdomen/Pelvis, VQ Scan, PPM Check, CBC, CMP, Albumin, TFT, CXR - Cortisol testing pending - Disontinue Bumex 1mg/hr Orthostatic Hypotension- chronic due to autonomic neuropathy -Restart midodrine PAF/SSS s/p PPM - 88% A-paced 19% v-paced CV stable will discharge home on bumex and midodrine. documented in this encounter Plan of Treatment Not on file documented as of this encounter Visit Diagnoses Not on filedocumented in this encounter Care Teams Dictionary Editor Relationship Specialty Start Date End Date Roopa Mcfarland FNP [address] [place] [address] PCP - General Nurse Practitioner 01/20/25 documented as of this encounter
--- OUTSIDE RECORDS SUMMARY | 2025-04-16 20:53 | XMS_ITS | Encounter Summary ---
Author Organization [employer] ([place], [place], [place], [place], [place]) Address [address] [place] [address] Care Team Providers Care Fire Alarm Mechanic Name Role Phone Roopa Mcfarland TOYR Primary Care Provider Encounter Details Date Type Department Care Team (Late st Contact Info) Description 06/17/2018 Transcribed Document [facility] [place] Family [place] [facility] [place] [address] ProviderJoann MD [address] [place] [phone] Social History Tobacco Use Types Packs/Day Years Used Date Smoking Tobacco: Never Assessed Comments Unknown Sex and Gender Information Value Date Recorded Sex Assigned at Not on file Legal Sex Female 4:43 PM CDT Gender Identity Not on file Sexual Orientation Not on file documented as of this encounter Miscellaneous Notes * Cerner Conversion Note - Joann Tello MD - 06/17/2018 8:33 AM SENIOR UI WEB DEVELOPER Therapy Screen, OT Entered On: 06/17/2018 9:58 EST Performed On: 06/17/2018 8:33 EST by MATTHIAS STAHL OTR/L Therapy Screen, OT Medical Chart Reviewed : Yes Person Providing Information : Patient, Other: PT Screen Completed : Yes Recommendations for Evaluation OT : Do not recommend Occupational Therapy evaluation Therapy Screen Findings, OT : Patient at functional baseline Recommendations Upon Discharge : None Additional Therapy Screen Comment : Pt reports she is I with ADLs, functional mobility, and does not need any therapy at this time. No further skilled OT indicated. MATTHIAS STAHL, OTR/L - 06/17/2018 9:57 EST Electronically signed by Christiano [place] Conversion Driver Lifter Of Sanitation Truck Cerner at 08/09/2022 9:20 AM CDT documented in this encounter Plan of Treatment Not on file documented as of this encounter Visit Diagnoses Not on filedocumented in this encounter Care Teams Fire Alarm Mechanic Relationship Specialty Start Date End Date Roopa Mcfarland, TORY [address] [place] [address] PCP - General Nurse Practitioner 01/20/25 documented as of this encounter
--- OUTSIDE RECORDS SUMMARY | 2025-04-16 20:53 | XMS_ITS | Encounter Summary ---
Author Organization [employer] ([place], [place], [place], [place], [place]) Address [address] [place] [address] Care Team Providers Care Bilingual Receptionist Name Role Phone Roopa Mcfarland TORY Primary Care Provider Encounter Details Date Type Department Care Team (Late st Contact Info) Description 10/03/2018 Transcribed Document [facility] [place] Family [place] [address] ProviderJoann MD [address] [place] [phone] Social History Tobacco Use Types Packs/Day Years Used Date Smoking Tobacco: Never Assessed Comments Unknown Sex and Gender Information Value Date Recorded Sex Assigned at Not on file Legal Sex Female 4:43 PM CDT Gender Identity Not on file Sexual Orientation Not on file documented as of this encounter Miscellaneous Notes * Cerner Conversion Note - Joann ProviderMD - 10/03/2018 11:44 PM CDT Event Note Entered On: 10/03/2018 23:45 EDT Performed On: 10/03/2018 23:44 EDT by Genia Diehl RN Event Note Event Date/Time : 10/03/2018 22:55 EDT Description of Event : AGREE WITH PREVIOUS NURSES ASSESMENT. Genia Diehl RN - 10/03/2018 23:44 EDT documented in this encounter Plan of Treatment Not on file documented as of this encounter Visit Diagnoses Not on filedocumented in this encounter Care Teams Bilingual Receptionist Relationship Specialty Start Date End Date Roopa Mcfarland FNP [address] [place] [address] PCP - General Nurse Practitioner 01/20/25 documented as of this encounter
--- OUTSIDE RECORDS SUMMARY | 2025-04-16 20:53 | XMS_ITS | Encounter Summary ---
Author Organization [employer] ([place], [place], [place], [place], [place]) Address [address] [place] [address] Care Team Providers Care Pediatric Speech Language Pathologist Name Role Phone Roopa Mcfarland TORY Primary Care Provider Encounter Details Date Type Department Care Team (Late st Contact Info) Description 06/17/2018 Transcribed Document [facility] [place] [address] ProviderJoann MD [address] [place] [address] Social History Tobacco Use Types Packs/Day Years Used Date Smoking Tobacco: Never Assessed Comments Unknown Sex and Gender Information Value Date Recorded Sex Assigned at Not on file Legal Sex Female 4:43 PM CDT Gender Identity Not on file Sexual Orientation Not on file documented as of this encounter Miscellaneous Notes * Cerner Conversion Note - Joann Tello MD - 06/17/2018 6:36 PM CARPENTER PROTOTYPE Event Note Entered On: 06/17/2018 18:37 EST Performed On: 06/17/2018 18:36 EST by CHRIS MCFARLANE RN Event Note Event Date/Time : 06/17/2018 16:40 EST Event Details : Other: discharge Description of Event : IV discontinued, home medication, home care, and follow up appointment instructions recieved prior to discharge. CHRIS MCFARLANE RN - 06/17/2018 18:36 EST Electronically signed by Karthik [facility] Conversion Md Psychiatry Cerner at 08/09/2022 9:22 AM CDT documented in this encounter Plan of Treatment Not on file documented as of this encounter Visit Diagnoses Not on filedocumented in this encounter Care Teams Pediatric Speech Language Pathologist Relationship Specialty Start Date End Date Roopa Mcfarland FNP [address] [place] [address] PCP - General Nurse Practitioner 01/20/25 documented as of this encounter
--- OUTSIDE RECORDS SUMMARY | 2025-04-16 20:53 | XMS_ITS | Encounter Summary ---
Author Organization [employer] ([place], [place], [place], [place], [place]) Address [address] [place] [address] Care Team Providers Care Photolettering Machine Operator Name Role Phone Roopa Mcfarland TORY Primary Care Provider Encounter Details Date Type Department Care Team (Late st Contact Info) Description 10/04/2018 Transcribed Document [facility] [place] [facility] [place] [address] ProviderJoann MD [address] [place] [phone] Social History Tobacco Use Types Packs/Day Years Used Date Smoking Tobacco: Never Assessed Comments Unknown Sex and Gender Information Value Date Recorded Sex Assigned at Not on file Legal Sex Female 4:43 PM CDT Gender Identity Not on file Sexual Orientation Not on file documented as of this encounter Miscellaneous Notes * Cerner Conversion Note - Joann Tello MD - 10/04/2018 11:10 AM CDT UM Authorization Entered On: 10/04/2018 11:10 EDT Performed On: 10/04/2018 11:10 EDT by KECIA AGUSTIN Rn-Utilization Review Primary Insurance Authorization Authorization and Policy Numbers : Insurance 1 Health Plan: [employer] Policy Number: [id number] Authorization Number: Insurance Primary Name : Passport Authorization Number-Primary : NR Obs Authorized Service Begin Date-Primary : 10/03/2018 EDT Historical Authorization Comments-Primary : No Authorization Comments Found KECIA AGUSTIN, Nik-Utilization Review - 10/04/2018 11:10 EDT documented in this encounter Plan of Treatment Not on file documented as of this encounter Visit Diagnoses Not on filedocumented in this encounter Care Teams Photolettering Machine Operator Relationship Specialty Start Date End Date Roopa Mcfarland FNP [address] [place] [address] PCP - General Nurse Practitioner 01/20/25 documented as of this encounter
--- OUTSIDE RECORDS SUMMARY | 2025-04-16 20:53 | XMS_ITS | Encounter Summary ---
Author Organization [employer] ([place], [place], [place], [place], [place]) Address [address] [place] [address] Care Team Providers Care Reheater Name Role Phone Roopa Mcfarland TORY Primary Care Provider Encounter Details Date Type Department Care Team (Late st Contact Info) Description 06/17/2018 Transcribed Document [facility] [place] [facility] [place] [address] ProviderJoann MD [address] [place] [address] Social History Tobacco Use Types Packs/Day Years Used Date Smoking Tobacco: Never Assessed Comments Unknown Sex and Gender Information Value Date Recorded Sex Assigned at Not on file Legal Sex Female 4:43 PM CDT Gender Identity Not on file Sexual Orientation Not on file documented as of this encounter Miscellaneous Notes * Cerner Conversion Note - Joann Tello MD - 06/17/2018 12:24 PM BOX LINING MACHINE OPERATOR Patient: ALEXANDREA GUTIERREZ Age: 32 years Sex: Female : 1985 Associated Diagnoses: None Author: RANJIT JENSEN APRN Chief Complaint Palpitations History of Present Illness 32-year-old white female with a history of vasodepressive syncope also has a dual-chamber permanent pacemaker implanted maintained on corlanor and atenolol at home to use that a health yesterday around 3:30 PM sitting down to eat a salad and felt severe palpitations which lasted for 30-45 minutes consistently with diaphoresis retrosternal chest pressure nonradiating as well as weakness and nausea and vomiting. There were no specific precipitating or modifying factors. She came to the emergency department for evaluation. Systolic blood pressure has been mildly low in the 80s and her normal blood pressure usually runs 110 systolic. She has received IV fluids since she's been here roughly 1 L of saline and reports that she feels some better today. EKG shows paced rhythm. transition mgr rn review reveals PVCs that are very infrequent. She denied syncope or presyncope. Review of Systems Constitutional: Sweats, No fever, No chills. Eye: No double vision, No visual disturbances. Ear/Nose/Mouth/Throat: No nasal congestion, No sore throat. Respiratory: Shortness of breath, No cough, No sputum production. Cardiovascular: Palpitations, Tachycardia, No bradycardia, No peripheral edema, No syncope. Chest pain: Midsternal, Anterior. Gastrointestinal: Nausea, Vomiting, No diarrhea. Genitourinary: No dysuria, No hematuria. Hematology/Lymphatics: No bruising tendency. Endocrine: No excessive thirst, No polyuria, No cold intolerance. Immunologic: Not immunocompromised, No recurrent fevers. Musculoskeletal: No neck pain, No joint pain, No muscle pain. Integumentary: No rash, No pruritus. Neurologic: No abnormal balance, No confusion. Psychiatric: No anxiety, No depression. Health Status Allergies: Allergic Reactions (Selected) High Tape- Itching., Allergies (1) Active Reaction Tape itching Current medications: (Selected) Inpatient Medications Ordered Colace: 100 mg, Oral, BID Normal Saline 1,000 mL: 10 mL/Hr, IntraVENous Normal Saline Bolus: 1,000 mL, 100 mL/Hr, IV Piggyback, 1-Time Normal Saline Flush: 10 mL, IV Push, Q12H Normal Saline Flush: 10 mL, IV Push, See Comment, PRN: IV Use Tylenol: 650 mg, Oral, Q4H, PRN: Pain (Mild 1-3) Zofran: 4 mg, IV Push, Q6H, PRN: Nausea acetaminophen-HYDROcodone 325 mg-5 mg oral tablet: 1 Tab, Oral, Q4H, PRN: Pain (Moderate 4-6) magnesium sulfate: 2 Gram, 50 mL, 25 mL/Hr, IV Piggyback, On-CALL morphine: 2 mg, IV Push, Q5Min, PRN: Pain (Severe 7-10) potassium chloride 10 mEq/50 mL intravenous solution: 10 mEq, 100 mL, 100 mL/Hr, IV Piggyback, 1-Time, PRN: Other (See Comment) potassium chloride 20 mEq oral tablet, extended release: 40 mEq, 2 Tab, Oral, 1-Time, PRN: Other (See Comment) potassium chloride 20 mEq oral tablet, extended release: 60 mEq, 3 Tab, Oral, On-CALL, PRN: Other (See Comment) Documented Medications Documented Coenzyme Q10 100 mg [...] Refill(s) midodrine: 10 mg, Oral, TID, 0 Refill(s), Medications (13) Active Scheduled: (4) #NaCl 0.9% *FLUSH* inj 10 mL 10 mL, IV Push, Q12H docusate sodium 100 mg cap 100 mg 1 Cap, Oral, BID magnesium sulfate 2 Gram 50 mL, IV Piggyback, On-CALL Sodium Chloride 0.9% intravenous solution 1,000 mL, IV Piggyback, 1-Time Continuous: (1) NaCl 0.9% 1,000 mL 1,000 mL, IntraVENous, 10 mL/Hr PRN: (8) #NaCl 0.9% *FLUSH* inj 10 mL 10 mL, IV Push, See Comment acetaminophen 325 mg tab 650 mg 2 Tab, Oral, Q4H acetaminophen/HYDROcodone 325/5 mg tab 1 Tab, Oral, Q4H morphine 2 mg/1 ml inj 2 mg 1 mL, IV Push, Q5Min ondansetron 4 mg/2 mL inj 4 mg 2 mL, IV Push, Q6H potassium chloride 10 mEq 100 mL, IV Piggyback, 1-Time potassium chloride CR 20 mEq tab 40 mEq 2 Tab, Oral, 1-Time potassium chloride CR 20 mEq tab 60 mEq 3 Tab, Oral, On-CALL Problem list: All Problems Cardiac pacemaker / SNOMED CT 4984243235 / Confirmed Delivered by section / SNOMED CT 719823720 / Confirmed X 2 H/O gastric bypass / SNOMED CT 648743190 / Confirmed H/O: hysterectomy / SNOMED CT 081372503 / Confirmed Tachycardia / SNOMED CT 9401452480 / Confirmed History of cholecystectomy / SNOMED CT 0485901264 / Confirmed Hypothyroid / SNOMED CT 558070612 / Confirmed MVP (mitral valve prolapse) / SNOMED CT 8566912434 / Confirmed MVP (mitral valve prolapse) / SNOMED CT [id number] / Confirmed PAF (paroxysmal atrial fibrillation) / SNOMED CT [id number] / Confirmed SSS (sick sinus syndrome) / SNOMED CT [id number] / Confirmed Thyroid disease / SNOMED CT 070812516 / Confirmed Resolved: Obesity / SNOMED CT 5031388861, Active Problems (12) Cardiac pacemaker Delivered by section H/O gastric bypass H/O: hysterectomy History of cholecystectomy Hypothyroid MVP (mitral valve prolapse) MVP (mitral valve prolapse) PAF (paroxysmal atrial fibrillation) SSS (sick sinus syndrome) Tachycardia Thyroid disease Histories Past Medical History: Active PAF (paroxysmal atrial fibrillation) ([id number]) SSS (sick sinus syndrome) ([id number]) Hypothyroid (617805305) MVP (mitral valve prolapse) ([id number]) Resolved Obesity (3261195721): Resolved. Family History: No family history items have been selected or recorded., Negative premature CAD Procedure history: PPM implant. Tonsillectomy. Gastric bypass. Comments: 12/25/2016 13:06 - PHU NEUMANN PA In 2004 2 C sections. Hysterectomy. Cholecystectomy. Social History Social & Psychosocial Habits Alcohol 11/09/2015 Alcohol [...] Never (less than 100 in l . Physical Examination VS/Measurements Vitals Signs (last 24 hrs) Last Charted Minimum Maximum Temp 98.4 (JUN 17 10:45) 98.4 (JUN 17 10:45) 99.1 (JUN 16 19:59) Mon HR 60 (JUN 17 10:45) 60 (JUN 16 20:30) 63 (JUN 17 00:06) Periph HR 60 (JUN 16 19:59) 60 (JUN 16 19:59) 60 (JUN 16 19:59) Resp Rate 16 (JUN 17 10:45) 16 (JUN 17 00:06) H 56 (JUN 16 21:30) SBP 94 (JUN 17 10:45) L 80 (JUN 17 00:06) 117 (JUN 16 20:30) DBP L 45 (JUN 17 10:45) L 44 (JUN 17 00:06) 71 (JUN 16 20:30) MAP 57 (JUN 17 10:45) 57 (JUN 17 00:06) 90 (JUN 16 20:30) SpO2 98 (JUN 17 10:45) 96 (JUN 17 00:06) 100 (JUN 16 19:59) General: Alert and oriented, No acute distress. Eye: Pupils are equal, round and reactive to light, Normal conjunctiva. HENT: Normocephalic, Normal hearing. Neck: Supple, Non-tender, No jugular venous distention. Respiratory: Lungs are clear to auscultation, Respirations are non-labored, Breath sounds are equal, Symmetrical chest wall expansion. Cardiovascular: No murmur, No gallop, Good pulses equal in all extremities, Normal peripheral perfusion, No edema, Paced rhythm. Gastrointestinal: Soft, Non-tender, Non-distended, Normal bowel sounds. Lymphatics: No lymphadenopathy neck, axilla, groin. Musculoskeletal: Normal range of motion, Normal strength. Integumentary: Warm, Dry, [place]. Neurologic: Alert, Oriented. Cognition and Speech: Oriented, Speech clear and coherent. Psychiatric: Cooperative, Appropriate mood & affect. Review / Management Results review: Labs (Last four charted values) WBC H 10.6 (JUN 16) HB 12.8 (JUN 16) HCT 40.2 (JUN 16) Plt 273 (JUN 16) Na 141 (JUN 16) K 4.7 (JUN 16) Cl H 113 (JUN 16) CO2 L 20 (JUN 16) BUN H 23 (JUN 16) Cr 0.75 (JUN 16) Glu R 84 (JUN 16) Ca L 8.2 (JUN 16) AST H 62 (JUN 16) ALT 59 (JUN 16) ALK P 87 (JUN 16) T Bili 0.3 (JUN 16) PTN 6.8 (JUN 16) ALB 3.8 (JUN 16) Lipase 299 (JUN 16) Troponin <0.015 (JUN 16) <0.015 (JUN 16) . Impression and Plan Palpitations -Improved following IV fluids. -Pacemaker interrogation st alberto ? pmt Nausea vomiting -Likely related to palpitations -Give IV fluids Chest pain -Improved following palpitation resolution -Continue beta blockers hypotension -Improved following fluids -Check orthostatics -continue home midodrine addendum: some pmt but on 06/13 and yesterday morning only atrial noise. no events correspond to timing of palps. walk in halls and if she feels ok after fliuid she can go home later today. orthostatic were negative. I Dr. Hernandez has personally seen and examined this patient and devised the above plan of care. Electronically signed by Karthik, [facility] Conversion Licensed Pharmacist Cerner at 08/09/2022 9:24 AM CDT documented in this encounter Plan of Treatment Not on file documented as of this encounter Visit Diagnoses Not on filedocumented in this encounter Care Teams Reheater Relationship Specialty Start Date End Date Roopa Mcfarland FNP [address] [place] [address] PCP - General Nurse Practitioner 01/20/25 documented as of this encounter
--- OUTSIDE RECORDS SUMMARY | 2025-04-16 20:53 | XMS_ITS | Encounter Summary ---
Author Organization [employer] ([place], [place], [place], [place], [place]) Address [address] [place] [address] Care Team Providers Care Garnett Feeder Name Role Phone Roopa Mcfarland TORY Primary Care Provider Encounter Details Date Type Department Care Team (Late st Contact Info) Description 10/04/2018 Transcribed Document [facility] [place] [facility] [place] [address] ProviderJoann MD [address] [place] [address] Social History Tobacco Use Types Packs/Day Years Used Date Smoking Tobacco: Never Assessed Comments Unknown Sex and Gender Information Value Date Recorded Sex Assigned at Not on file Legal Sex Female 4:43 PM CDT Gender Identity Not on file Sexual Orientation Not on file documented as of this encounter Miscellaneous Notes * Cerner Conversion Note - Joann Tello MD - 10/04/2018 11:16 AM CDT Patient: ALEXANDREA GUTIERREZ Age: 33 years Sex: Female : 1985 Associated Diagnoses: None Author: JOSE ALEJANDRO PEDROZA MD-CAR Subjective H/P on paper chart from office yesterday. Brief history: 33 yo WF with hx of PAF/SSS s/p PPM implant who presented OP with c/o 1 month sudden onset anginal type chest pain, SOA and 20lbs of edema. Normal Stress Test, ECHO, CT Chest, PPM check, CXR, VQ Scan, CBC, CMP. OP failing diuresis due to hypotension so she was admitted. Diuresed 2300mL overnight. Feeling some better. TFT and CT abdomen and pelvis normal, Albumin normal. Cortisol testing pending. Health Status Allergies: Allergic Reactions (Selected) High [...] Oral, Daily Tenormin: 25 mg, Oral, Daily Tylenol: 650 mg, Oral, Q4H, PRN: Pain (Mild 1-3) Zofran: 4 mg, IV Push, Q6H, PRN: Nausea acetaminophen-HYDROcodone 325 mg-5 mg oral tablet: 1 Tab, Oral, Q4H, PRN: Pain (Moderate 4-6) albuterol: 1 Puff, Inhalation, Q4H, PRN: Shortness of Breath magnesium sulfate: 2 Gram, 50 mL, 25 mL/Hr, IV Piggyback, See Comment, PRN: Other (See Comment) morphine: 2 mg, IV Push, Q5Min, PRN: [...] Instructions, 1 Tab Oral Daily, 0 Refill(s) Objective VS/Measurements Vitals Signs (last 24 hrs) Last Charted Minimum Maximum Temp 97.6 (OCT 04 11:12) 97.6 (OCT 04 11:12) 98.4 (OCT 03 16:24) Mon HR 59 (OCT 04 11:12) 59 (OCT 03 17:00) 84 (OCT 03 23:00) Resp Rate 18 (OCT 04 11:12) L 12 (OCT 03 16:24) H 28 (OCT 03 19:51) SBP L 86 (OCT 04 11:12) L 80 (OCT 04 03:15) 121 (OCT 03 16:24) DBP L 54 (OCT 04 11:12) L 50 (OCT 04 03:15) 79 (OCT 03 16:24) MAP 61 (OCT 04 11:12) 61 (OCT 04 06:14) 83 (OCT 03 17:00) SpO2 100 (OCT 04 11:12) 96 (OCT 03 21:54) 100 (OCT 03 16:25) General: Alert and oriented, No acute distress. [...] TFT, CXR - Cortisol testing pending - Continue Bumex 1mg/hr - monitor BP and BMP Hypotension - Monitor closely - no Midorine or fluids due to edema PAF/SSS s/p PPM - 88% A-paced 19% v-paced I Dr. Pedroza has personally seen and examined this patient and devised the above plan of care. documented in this encounter Plan of Treatment Not on file documented as of this encounter Visit Diagnoses Not on filedocumented in this encounter Care Teams Garnett Feeder Relationship Specialty Start Date End Date Roopa Mcfarland FNP [address] [place] [address] PCP - General Nurse Practitioner 01/20/25 documented as of this encounter
--- OUTSIDE RECORDS SUMMARY | 2025-04-16 20:53 | XMS_ITS | Encounter Summary ---
Author Organization [employer] ([place], [place], [place], [place], [place]) Address [address] [place] [address] Care Team Providers Care Steam Powerplant Supervisor Name Role Phone Roopa Mcfarland TORY Primary Care Provider Encounter Details Date Type Department Care Team (Late st Contact Info) Description 10/04/2018 Transcribed Document [facility] [place] [address] ProviderJoann MD [address] [place] [id number] Social History Tobacco Use Types Packs/Day Years Used Date Smoking Tobacco: Never Assessed Comments Unknown Sex and Gender Information Value Date Recorded Sex Assigned at Not on file Legal Sex Female 4:43 PM CDT Gender Identity Not on file Sexual Orientation Not on file documented as of this encounter Miscellaneous Notes * Cerner Conversion Note - Joann ProviderMD - 10/04/2018 1:54 PM CDT Initial Discharge Planning Entered On: 10/04/2018 13:56 EDT Performed On: 10/04/2018 13:54 EDT by ALEXIS RUIZ RN-Fine Jewelry Sales Associate Initial Assessment I Previously Documented Living Environment : No qualifying data available. Living Situation : Home Patient Lives With : Dependent Child/Children, Significant other(s) Is the Patient a Caregiver at Home? : Yes For Whom are they a Caregiver? : Child/Children Emergency Contact #1 : Lara Olsen Emergency Contact #1 Emergency Contact #1 Relationship : mom Emergency Contact #2 : Fransico Archibald Emergency Contact #2 Emergency Contact #2 Relationship : boyfriend Enter Doctors Name : MARTI ORELLANA Does Patient have PCP Listed? : Yes ALEXIS RUIZ RN-Fine Jewelry Sales Associate - 10/04/2018 13:54 EDT Initial Assessment II Sensory and Motor Deficits : None ALEXIS RUIZ RN-Fine Jewelry Sales Associate - 10/04/2018 13:54 EDT Discharge Needs I Anticipated Discharge Date : 10/06/2018 EDT Anticipated Discharge To, CM : Home independently Current Home Treatment/Equipment : Current Home Treatment/Equipment No qualifying data available. ALEXIS RUIZ RN-Fine Jewelry Sales Associate - 10/04/2018 13:54 EDT Discharge Needs II Professional Skilled Services : Professional Skilled Services No qualifying data available. Needs Assistance with Transportation : Maybe ALEXIS RUIZ RN-Fine Jewelry Sales Associate - 10/04/2018 13:54 EDT Narrative Note Narrative Note : CHART REVIEWED.. ADMITTED FOR DIURESIS AND HYPOTENSION..CM WILL FOLLOW..NO IMMEDIATE NEEDS IDENTIFIED..LOW RISK FOR READMISSION..LM ALEXIS RUIZ RN-Fine Jewelry Sales Associate - 10/04/2018 13:54 EDT documented in this encounter Plan of Treatment Not on file documented as of this encounter Visit Diagnoses Not on filedocumented in this encounter Care Teams Steam Powerplant Supervisor Relationship Specialty Start Date End Date Roopa Mcfarland FNP [address] [place] [address] PCP - General Nurse Practitioner 01/20/25 documented as of this encounter
--- OUTSIDE RECORDS SUMMARY | 2025-04-16 20:53 | XMS_ITS | Clinical Summary ---
Author Organization [employer] ([place], [place], [place], [place], [place]) Address [address] [place] [address] Care Team Providers Care Industrial Tech Instructor Name Role Phone Bartolo Roopa SPEARS Primary Care Provider Allergies Active Allergy Reactions [...] 06/01/[address] of the abdomen 06/01/2024 Encounters Date Type Department Care Team Description 01/20/2025 2:43 PM EDT - 01/20/2025 5:59 PM EDT Emergency [facility] Emergency Department [address] [place] [address] Mason Deal MD Palpitations (Primary Dx); Diarrhea, unspecified type; Chronic abdominal pain; Mass of pancreas Discharge Disposition: Home or Self Care 01/20/2025 Travel from Last 3 Months Social History Tobacco Use Types Packs/Day Years Used Date Smoking Tobacco: Never Smokeless Tobacco: Never Tobacco Cessation:Counseling Given: Not Answered Alcohol Use Standard Drinks/Week Comments Not Currently 0 (1 standard drink = 0.6 oz pur e alcohol) Utilities Answer Date Recorded In the past 12 months, has t he electric, gas, oil, or water company threatened to [...] Do you speak a language other than Serbian at [facility]? No 06/01/2024 Do you want [...] 01/20/2025 2:48 PM EDT Plan of Treatment Health Maintenance Due Date Last Done Comments Depression Screening (12+) 1996 HIV Screening 07/06/1999 Hepatitis C Screening 2002 Pap Smear 12/13/2023 12/12/2020 Breast Cancer Screening 2024 Influenza Vaccine (#1) 2024 Tobacco Cessation Counseling and Screening (12+) 01/20/2026 01/20/2025 DTAP/TDAP/TD VACCINES (2 - T d or Tdap) 10/20/2030 10/20/2020 COVID-19 VACCINE Completed 01/30/2024, 01/03/2021 Pneumococcal Vaccine: 0-49 Years Aged Out No longer eligible b ased on patient's age to complete this topic Procedures Procedure Name Priority Date/Time Associated Diagnosis [...] Sensitivity Troponin I (01/20/2025 4:45 PM EDT) Troponin I High Sensitivity (pg/mL) <5.0 <=14 pg/mL 01/20/2025 5:27 PM EDT [facility] Blood Venipuncture / Unknown 01/20/2025 4:45 PM EDT 01/20/2025 4:47 PM EDT Narrative [facility] - 01/20/2025 5:27 PM EDT Applicable to [facility] only. Effective July 14 the lab will begin using a new chemistry analyzer. HsTroponin methodology, reference ranges and critical values have changed. us Mason Deal MD LAB BLOOD ORDERABLES Final R esult [facility] [address] [phone] * POCT , urine (01/20/2025 3:17 PM EDT) Pathologist [facility] POC, URINE HCG Negative Negative INTERNAL QC (VALID/INVALID ) Valid Kit Lot Number [id number] Expiration Date 06/16/2026 01/20/2025 3:17 PM EDT Radha Felix PA-C FS_MODEL_IP_POINT OF CARE TEST ENTER/EDIT ORDERABLES Final Result * (ABNORMAL) Urinalysis, Reflex Microscopic and Culture If Indicated (01/20/2025 3:05 PM EDT) [facility] Color, UA Light Yellow 01/20/2025 3:18 PM EDT [facility] Clarity, UA Clear Clear 01/20/2025 3:18 PM EDT [facility] Specific [place], UA 1.016 1.005 - 1.030 01/20/2025 3:18 [...] EDT 01/20/2025 3:13 PM EDT us Radha HONRE-C URINE ORDERABLES Final Re sult Performing Organization Address City/[facility]/ZIP Co de Phone Number [facility] [address] [phone] * Urine Drug Screen (01/20/2025 3:05 PM [...] 1.0 ng/mL Opiates: 300 ng/mL us Radha HORNE-C URINE ORDERABLES Final Re sult Performing Organization Address City/[facility]/ZIP Co de Phone Number [facility] [address] [phone] * PST Top Extra Tubes (01/20/2025 2:55 PM EDT) HOLD SPECIMEN (SJ - BKR) Hold for add-ons. 01/20/2025 5:01 PM EDT [facility] Comment:Auto resulted. Blood (Blood, Veinous) Venipuncture / Unknown 01/20/2025 2:55 PM EDT 01/20/2025 3:02 PM EDT Radha Felix PA-C LAB BLOOD ORDERABLES Kadie l Result Performing Organization Address City/[facility]/ZIP Co de Phone Number [facility] [address] [phone] * Gibbs Top Extra Tubes (01/20/2025 2:55 PM EDT) HOLD SPECIMEN ( - BKR) Hold for add-ons. 01/20/2025 5:01 PM EDT [facility] Comment:Auto resulted. Blood (Blood, Veinous) Venipuncture / Unknown 01/20/2025 2:55 PM EDT 01/20/2025 3:02 PM EDT Radha Felix PA-C LAB BLOOD ORDERABLES Kadie l Result Performing Organization Address City/[facility]/ZIP Co de Phone Number [facility] [address] [phone] * Blue Top Extra Tubes (01/20/2025 2:55 PM EDT) HOLD SPECIMEN (SJ - BKR) Hold for add-ons. 01/20/2025 5:01 PM EDT [facility] Comment:Auto resulted. Blood (Blood, Veinous) Venipuncture / Unknown 01/20/2025 2:55 PM EDT 01/20/2025 3:02 PM EDT Radha Felix PA-C LAB BLOOD ORDERABLES Kadie mckee Result [facility] [address] [phone] * (ABNORMAL) CBC with Auto Diff (01/20/2025 [...] Blast? Flag noted Atypical Lymph flag noted us Radha Felix PA-C LAB BLOOD ORDERABLES Kadie mckee Result [facility] [address] [place], [place] [address] [phone] * (ABNORMAL) TSH with Reflex FT4 (01/20/2025 2:54 PM EDT) TSH 0.053(L) 0.350 - 4.940 uIU/mL 01/20/2025 3:41 PM EDT [facility] Blood Venipuncture / Unknown 01/20/2025 2:54 PM EDT 01/20/2025 3:02 PM EDT us Radha Felix PA-C LAB BLOOD ORDERABLES Kadie l Result Performing Organization Address City/[facility]/ZIP Co de Phone Number [facility] [address] [phone] * T4, free (01/20/2025 2:54 PM EDT) Free T4 0.90 0.70 - 1.48 ng/dL 01/20/2025 6:52 PM EDT [facility] Blood Venipuncture / Unknown 01/20/2025 2:54 PM EDT 01/20/2025 3:02 PM EDT us Radha Felix PA-C LAB BLOOD ORDERABLES Kadie l Result Performing Organization Address [facility] Co de Phone Number [facility] [address] [phone] * Magnesium (01/20/2025 2:54 PM EDT) Magnesium 1.9 1.6 - 2.6 mg/dL 01/20/2025 3:41 PM EDT [facility] Blood Venipuncture / Unknown 01/20/2025 2:54 PM EDT 01/20/2025 3:02 PM EDT us Katy Abarca APRN LAB BLOOD ORDERABLES Final Resu lt Performing Organization Address [facility] Co de Phone Number [facility] [address] [phone] * (ABNORMAL) Basic Metabolic Panel (01/20/2025 2:54 PM EDT) Sodium 139 136 - 145 meq/L 01/20/2025 [...] PA-C LAB BLOOD ORDERABLES Kadie mckee Result [facility] [address] [phone] * EKG-SCANNED (01/20/2025) Narrative 01/20/2025 Ordered by an unspecified provider. us Default Scanning Provider SCAN ORDERS Final Result from Last 3 Months Insurance BLUE CROSS/BLUE SHIELD Advance Directives For more information, please contact: [phone] * Full Code (Latest Code Status on File) Date Activated Date Inactivated Comments 06/01/2024 4:19 PM 06/05/2024 5:45 PM Care Teams Industrial Tech Instructor Relationship Specialty Start Date End Date Roopa Mcfarland FNP [address] [place] [address] PCP - General Nurse Practitioner 01/20/25
--- OUTSIDE RECORDS SUMMARY | 2025-04-16 20:53 | XMS_ITS | Encounter Summary ---
Author Organization [employer] ([place], [place], [place], [place], [place]) Address [address] [place] [address] Care Team Providers Care Stroke Belt Sander Operator Name Role Phone Roopa Mcfarland LABELING ASSOCIATE Primary Care Provider Encounter Details Date Type Department Care Team (Late st Contact Info) Description 10/03/2018 Transcribed Document [facility] [place] [address] ProviderJoann MD [address] [place] [id number] Social History Tobacco Use Types Packs/Day Years Used Date Smoking Tobacco: Never Assessed Comments Unknown Sex and Gender Information Value Date Recorded Sex Assigned at Not on file Legal Sex Female 4:43 PM CDT Gender Identity Not on file Sexual Orientation Not on file documented as of this encounter Miscellaneous Notes * Cerner Conversion Note - Joann Tello MD - 10/03/2018 5:01 PM CDT Pain Assessment Entered On: 10/04/2018 2:09 EDT Performed On: 10/04/2018 1:13 EDT by Genia Diehl RN Intervention Information: acetaminophen Performed by Genia Diehl RN on 10/04/2018 00:13:00 EDT acetaminophen,650mg Oral,Pain (Mild 1-3) Pain Assessment Pain Assessment : Follow-up assessment Pain Scale Used : 0-10 Scale Genia Diehl RN - 10/04/2018 2:09 EDT Pain Scale Intensity : 0 Genia Diehl, ABHISHEK - 10/04/2018 2:09 EDT Image 4 - Images currently included in the form version of this document have not been included in the text rendition version of the form. documented in this encounter Plan of Treatment Not on file documented as of this encounter Visit Diagnoses Not on filedocumented in this encounter Care Teams Stroke Belt Sander Operator Relationship Specialty Start Date End Date Roopa Mcfarland FNP [address] [place] [address] PCP - General Nurse Practitioner 01/20/25 documented as of this encounter
--- OUTSIDE RECORDS SUMMARY | 2025-04-16 20:53 | XMS_ITS | Encounter Summary ---
Author Organization [employer] ([place], [place], [place], [place], [place]) Address [address] [place] [address] Care Team Providers Care Easement Worker Name Role Phone Roopa Mcfarland TORY Primary Care Provider Encounter Details Date Type Department Care Team (Late st Contact Info) Description 10/04/2018 Transcribed Document [facility] [place] Family Medicine [facility] [place] [address] ProviderJoann MD [address] [place] [id number] Social History Tobacco Use Types Packs/Day [...] Joann ProviderMD - 10/04/2018 5:00 AM CDT Chart Check - Review Order Profile Entered On: 10/04/2018 5:41 EDT Performed On: 10/04/2018 5:00 EDT by Genia Diehl RN Chart Check Powerplans Initiated/Discontinued as Appropriate : Yes All Active Orders Reviewed : Yes Genia Diehl RN - 10/04/2018 5:41 EDT Electronically signed by Karthik [facility] Conversion Speech Correction Assistant Daryl at 08/09/2022 8:57 AM CDT documented in this encounter Plan of Treatment Not on file documented as of this encounter Visit Diagnoses Not on filedocumented in this encounter Care Teams Easement Worker Relationship Specialty Start Date End Date Roopa Mcfarland FNP [address] [place] [address] PCP - General Nurse Practitioner 01/20/25 documented as of this encounter
--- OUTSIDE RECORDS SUMMARY | 2025-04-16 20:53 | XMS_ITS | Encounter Summary ---
Author Organization [employer] ([place], [place], [place], [place], [place]) Address [address] [place] [address] Care Team Providers Care Tailings [place] Laborer Name Role Phone Roopa Mcfarland TORY Primary Care Provider Encounter Details Date Type Department Care Team (Late st Contact Info) Description 10/05/2018 Transcribed Document [facility] [place] [facility] [address] ProviderJoann MD [address] [place] [id number] Social History Tobacco Use Types Packs/Day Years Used Date Smoking Tobacco: Never Assessed Comments Unknown Sex and Gender Information Value Date Recorded Sex Assigned at Not on file Legal Sex Female 4:43 PM CDT Gender Identity Not on file Sexual Orientation Not on file documented as of this encounter Miscellaneous Notes * Cerner Conversion Note - Joann ProviderMD - 10/05/2018 2:00 AM CDT Podiatric Physician Details Entered On: 10/05/2018 2:50 EDT Performed On: 10/05/2018 2:00 EDT by Genia Diehl RN Order Details Transport Mode Order Detail : Wheelchair Isolation Precautions Order Detail : Standard Precautions Order Detail : 0 IV Order Detail : 1 Oxygen Order Detail : 0 Nurse Collect Order Detail : 0 Lift/Transfer : Independent Central Line Order Detail : No Room Service : Appropriate Arterial Line : No Genia Diehl RN - 10/05/2018 2:49 EDT Electronically signed by Christiano [place] Conversion [employer] Trader Cerner at 08/09/2022 9:05 AM CDT documented in this encounter Plan of Treatment Not on file documented as of this encounter Visit Diagnoses Not on filedocumented in this encounter Care Teams [place]ings [place] Laborer Relationship Specialty Start Date End Date Roopa Mcfarland FNP [address] [place] [address] PCP - General Nurse Practitioner 01/20/25 documented as of this encounter
--- OUTSIDE RECORDS SUMMARY | 2025-04-16 20:53 | XMS_ITS | Encounter Summary ---
Author Organization [employer] ([place], [place], [place], [place], [place]) Address [address] [place] [address] Care Team Providers Care Paraoptometric Name Role Phone Roopa Mcfarland TORY Primary Care Provider Encounter Details Date Type Department Care Team (Late st Contact Info) Description 10/05/2018 Transcribed Document [facility] [place] Family [place] [facility] [address] ProviderJoann MD [address] [place] [id number] Social History Tobacco Use Types Packs/Day [...] Joann ProviderMD - 10/05/2018 5:00 AM CDT Chart Check - Review Order Profile Entered On: 10/05/2018 6:22 EDT Performed On: 10/05/2018 5:00 EDT by Genia Diehl RN Chart Check Powerplans Initiated/Discontinued as Appropriate : Yes All Active Orders Reviewed : Yes Genia Diehl RN - 10/05/2018 6:22 EDT Electronically signed by Karthik [facility] Conversion Nuclear Radiation Engineer Daryl at 08/09/2022 8:55 AM CDT documented in this encounter Plan of Treatment Not on file documented as of this encounter Visit Diagnoses Not on filedocumented in this encounter Care Teams Paraoptometric Relationship Specialty Start Date End Date Roopa Mcfarland FNP [address] [place] [address] PCP - General Nurse Practitioner 01/20/25 documented as of this encounter
--- OUTSIDE RECORDS SUMMARY | 2025-04-16 20:53 | XMS_ITS | Encounter Summary ---
Author Organization [employer] ([place], [place], [place], [place], [place]) Address [address] [place] [address] Care Team Providers Care Tool And Cutter Grinder Name Role Phone Roopa Mcfarland TORY Primary Care Provider Encounter Details Date Type Department Care Team (Late st Contact Info) Description 10/03/2018 Transcribed Document [facility] [place] [facility] [place] [address] ProviderJoann MD [address] [place] [id number] Social History Tobacco Use Types Packs/Day Years Used Date Smoking Tobacco: Never Assessed Comments Unknown Sex and Gender Information Value Date Recorded Sex Assigned at Not on file Legal Sex Female 4:43 PM CDT Gender Identity Not on file Sexual Orientation Not on file documented as of this encounter Miscellaneous Notes * Cerner Conversion Note - Joann ProviderMD - 10/03/2018 4:35 PM CDT Admission History, Adult Entered On: 10/03/2018 16:41 EDT Performed On: 10/03/2018 16:35 EDT by Sarah Wong RN Advance Directive Patient has Advance Directive *Q : No, patient refuses Advance Directive information Sarah Wong RN - 10/03/2018 16:35 EDT Anesthesia/Transfusion History Family History of Anesthesia Reaction : Prior transfusion without reaction Blood Transfusion Acceptable to Patient : Yes Transfusion History : Prior anesthesia without reaction Family History of Anesthesia Reaction : None Sarah Wong RN - 10/03/2018 16:35 EDT Anticipated Discharge Needs Discharge To, Anticipated : Home Anticipated Discharge Needs at This Time : Sarah Panchal RN - 10/03/2018 16:35 EDT Education Topics, Admission Orientation DCP GENERIC CODE [...] Verbalizes understanding Visiting Policy : Verbalizes understanding Sarah Wong RN - 10/03/2018 16:35 EDT Functional Assessment Living Situation : Home Patient Lives With : Dependent Child/Children, Significant other(s) Current Home Treatments : Sarah Panchal RN - 10/03/2018 16:35 EDT General Info Arrived From : Other: Dr. Hernandez office Mode of Arrival on Unit : Ambulatory Support Person/Patient Applications Development Analyst : No Contact Password : Hettie Want Family/Rep/Phys Notified of Admit : No Emergency Contact #1 : Lara Olsen Emergency Contact #1 Emergency Contact #1 Relationship : mom Emergency Contact #2 : Fransico Archibald Emergency Contact #2 Emergency Contact #2 Relationship : boyfriend Primary Language : Kittitian Preferred Communication Mode : Verbal Communication Barrier : Sarah Panchal RN - 10/03/2018 16:35 EDT Fall Risk Scales ABCs Fall Injury Risk Identification : None SLATER Hx Falls Immediate/Within 3 Months : No Slater Secondary Diagnosis : No SLATER Use of Ambulatory Aid : Bed rest/Nurse assist SLATER IV Therapy or IV Access : Yes Slater Gait/Transferring : Normal, bedrest, immobile Slater Mental Status : Oriented to own ability Slater Fall Risk Score : 20 SLATER Fall Scale Risk Level : 0-24 Low Risk [place] Fall Interventions : Adequate lighting, Assistive devices within reach, Bed in low position, Call device within reach, Frequent orientation to call device, Frequent orientation to surroundings, Hourly comfort/safety rounds, Non-slip footwear, Personal items within reach, Reinforced to call for assistance before getting out of bed, Room free of clutter/spills, Upper side-rails up, Wheels locked, Wires/Cords secured Fall Moderate to High Risk Interventions : Bed alarm on, Patient room close to nurses station, Transport methods appropriate to patient, Wrist band (fall risk) on Fall Risk Scale Calc Temp : 0 Sarah Wong RN - 10/03/2018 16:35 EDT Health Histories Smoking Status : Never (less than 100 in lifetime; none in last 30 days) Smokeless Tobacco Status : Never Sarah Wong RN - 10/03/2018 16:35 EDT Social History (As Of: 10/03/2018 16:41:47 EDT) Tobacco: Smoking Status Never smoker. (Last Updated: 12/25/2016 13:10:01 EDT by ALEXANDREA COFFEY, ABHISHEK) Never (less than 100 in lifetime) Smoking Status. (Last Updated: 06/17/2018 05:36:40 EST by MARYCRUZ FLOR, ABHISHEK) Alcohol: Alcohol Use History No. (Last Updated: 11/09/2015 13:45:34 EDT by LONNIE AWNG, ABHISHEK) Alcohol Use History No. (Last Updated: 06/17/2018 05:36:46 EST by MARYCRUZ FLOR, ABHISHEK) Substance Abuse: Drug Use Hx: No. Use in Last 12 Months: No. (Last Updated: 11/09/2015 13:45:40 EDT by LONNIE WANG RN) Drug Use Hx: No. Use in Last 12 Months: No. (Last Updated: 06/17/2018 05:36:53 EST by MARYCRUZ FLOR, ABHISHEK) Nutrition/Health: Regular, Caffeine intake amount: 1-2 cups a day.. (Last Updated: 12/25/2016 13:10:41 EDT by ALEXANDREA COFFEYABHISHEK) Exercise: Exercise type: Walking. Comments: 11/09/2015 13:46 - LONNIE WANG RN: 2-3 miles a day (Last Updated: 11/09/2015 13:46:07 EDT by LONNIE WANG RN) Home/Environment: Lives with Children. 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 Operates hazardous equipment: No. (Last Updated: 11/09/2015 13:47:20 EDT by LONNIE WANG RN) Height and Weight, Clinical Dosing Height Source : Chart Height Entry Format : [place] Height, Feet : 5 ft(Converted to: 152 cm, 60 Inch) Height, Inches : 4 Inch(Converted to: 0 ft 4 Inch, 10.16 cm) Clinical Height : 162.56 cm Weight Source : Bed scale Weight Entry Format : [place]ke Clinical Dosing Weight : 66.82 kg Weight, Pounds : 147 lb Body Surface Area (BSA) : 1.72 m2 Body Mass Index : 25.3 kg/m2 (HI) [place] Body Weight : 54 kg Sarah Wong RN - 10/03/2018 16:35 EDT Infectious Disease History Infectious Disease History : Chicken pox/Shingles Sarah Wong RN - 10/03/2018 16:35 EDT Active Surveillance Screen Assessment : Patient does not meet any of above criteria Genia Diehl RN - 10/05/2018 2:48 EDT Fever/Chills Last 48 Hours : No Travel To Regions with Travel Advisories : No Travel Outside [place] Within Last 30 Days : No Contact With Traveler to Advisory Region : No Tuberculosis Symptoms : Fatigue Sarah Wong RN - 10/03/2018 16:35 EDT Tetanus Immunization Status Previous Tetanus Immunizations : No qualifying data available. Tetanus Immunization : Less than 5 years Sarah Wong RN - 10/03/2018 16:35 EDT Influenza Vaccine Asmt, Adult Previous Vaccines from Immunization Schedule : No qualifying data available. Influenza Immunization, Current Season : No Inactivated Flu Vaccine Contraindications : No contraindications to inactivated influenza vaccine Transplant Workup/Recent Transplant : No Order for Influenza Vaccine : Declined Vaccination Sarah Wong RN - 10/03/2018 16:35 EDT Pneumococcal Vaccine Previous Vaccines from Immunization Schedule : No qualifying data available. Pneumonia Immunization Received : No Pneumococcal Risk Assessment < Age 65 : None Sarah Wong RN - 10/03/2018 16:35 EDT Order Details Transport Mode Order Detail : Ambulatory Isolation Precautions Order Detail : Contact precautions Order Detail : 0 IV Order Detail : 1 Oxygen Order Detail : 0 Nurse Collect Order Detail : 0 Lift/Transfer : Independent Central Line Order Detail : No Room Service : Appropriate Arterial Line : No Sarah Wong RN - 10/03/2018 16:35 EDT Nutrition History Adaptive Feeding Equipment : Regular Oral Medication Administration : By mouth Eating Poorly Due to Decreased Appetite : Yes Unplanned Weight Loss in Past 3-6 Months : No Malnutrition Screening Tool Total(mal) : 1 Malnutrition Screening Tool Risk Level : Patient not at risk Sarah Wong RN - 10/03/2018 16:35 EDT Psychosocial History Chronic/Terminal Illness w/Freq Visits : No Do You Have a History of the Following? : Patient denies history Currently in Unsafe Situation : No Tried to Harm Yourself in the Past? : No Thoughts of Harming/Killing Yourself : No Sarah Wong RN - 10/03/2018 16:35 EDT Sleep Apnea Risk Assmt Hx of Obstructive Sleep Apnea Diagnosis : No Snore Loudly : No Tired, Fatigued, or Sleepy During Day : No Observed Stopping Breathing During Sleep : No Have/Are Being Treated for Hypertension : No BMI Greater Than 35 kg/m2 : No Age over 50 Years Old : No Neck Circumference Greater Than 40 cm : No Gender Male : No STOP-BANG Sleep Apnea Risk Level Score : 0 Sarah Wong RN - 10/03/2018 16:35 EDT Valuables and Belongings Valuables and Belongings : Clothing, Jewelry, Personal devices, Personal items, Medications Clothing : Common streetwear Clothing Disposition : With patient Personal Device Disposition : With patient Jewelry : Earrings, Watch Jewelry Disposition : With patient Personal Devices : Contact lenses, Glasses Personal Items : Cell phone, Other: overnight bag Personal Items Disposition : With patient Medication Disposition : With patient Medication Brought With Patient : Yes Sarah Wong RN - 10/03/2018 16:35 EDT documented in this encounter Plan of Treatment Not on file documented as of this encounter Visit Diagnoses Not on filedocumented in this encounter Care Teams Tool And Cutter Grinder Relationship Specialty Start Date End Date Roopa Mcfarland, TORY [address] [place] [address] PCP - General Nurse Practitioner 01/20/25 documented as of this encounter
--- OUTSIDE RECORDS SUMMARY | 2025-04-16 20:53 | XMS_ITS | Data Portability ---
Author Organization [facility] Address [address] [place] [address] Care Team Providers Care Plastics Design Engineer Name Role Phone JENN CORDERO Sports Marketer EMILY FINNEGAN Radiation Oncologist Assessment No assessment recorded. Plan of Treatment Reminders Order Date Submit Date Provider Last Modified By Organization Details Last Modified Time Details Appointments None record ed. Lab None record ed. Referral None record ed. Procedures None record ed. Surgeries None record ed. Imaging None record ed. Medication Orders None record ed. Patient TargetsNo targets recorded. Patient Instructions Encounter Date Encounter Id Patient Instructions Last Modified By Organization Details Last Modified Time 11/26/2024 [id number] body mass index: care instructions [email or web address] Not available 11/26/2024 17:37:34 Reason for Referral None Reported. Results Created Date Observation Date Name Description Value Unit Range Abnormal Flag Note LastModifiedBy Organization Detail LastModifiedTime 12/03/19 25 12/05/2024 VITAM IN D, 25-HY DROXY vitamin D, 25-hydroxy 33.5 NG/mL 30.0-1 00.0 Vitam in D defic iency has been defin ed by the Insti tute of Medic ine and an Endoc rine Socie ty pract ice guide line as a level of serum 25-OH vitam in D less than 20 ng/mL (1,2) . The Endoc rine Socie ty went on to furth er defin e vitam in D insuf ficie ncy as a level betwe en 21 and 29 ng/mL (2). 1. IOM (Inst itute of Medic ine). 2010. Dieta ry refer ence intak es for calci um and D. Gasper boss [place]: [facility] . 2. Larissa drake MF, Molly robert [place], Rosalia off-F herman i AGUILAR, et al. Evalu ation , treat ment, and preve ntion of vitam in D defic iency : an Endoc rine Socie ty clini juliette pract ice guide line. JCEM. 2010; 96(7) :1911 -30. Not Available [facility] ([facility]) [address] [facility], [place], [address], 12/05/2024 08:17:29 12/03/1912/04/2024 PHOSP HORUS phosphorus 3.5 mg/dL 3.0-4. 3 normal Not Available [facility] ([facility]) [address] [facility], [place], [address], 12/05/2024 08:17:30 12/03/1912/04/2024 MAGNE SIUM magnesium 1.9 mg/dL 1.6-2. 3 normal Not Available [facility] ([facility]) [address] [facility], [place], [address], 12/05/2024 08:17:30 12/03/1912/03/2024 PLEAS E NOTE please note Commen t We have recei juan c your reque st for addit ional testi ng or test verif icati on. You will be notif ied if we are unabl e to proce ss your reque st. Not Available [facility] ([facility]) [address] [facility], [place], [address], 12/05/2024 08:17:31 12/03/1912/03/2024 KARTIK EN AUTHO RIZAT ION written authorizatio n Commen t Kartik en Autho rizat ion Recei juan c. Autho rizat ion recei juan c from Kartik en Requi sitio n 12-03 Logge d by Ophelia jones Not Available [facility] ([facility]) [address] [place], [address], 12/05/2024 08:17:31 12/03/1912/02/2024 CA+PT H INTAC T+CA IONIZ ED intact PTH Commen t Inter preta tion Intac t PTH Calci um (pg/m L) (mg/d L) Radha l 15 - 65 8.6 - 10.2 Prima ry Hyper parat hyroi dism >65 >10.2 Secon jaspreet Hyper parat hyroi dism >65 <10.2 Non-P pili yroid Hyper calce martin <65 >10.2 Hypop pili yroid ism <15 < 8.6 Non-P pili yroid Hypoc alcem ia 15 - 65 < 8.6 Not Available [facility] ([facility]) [address] [place], [address], 12/10/2024 14:13:16 12/03/19 25 12/03/2024 CA+PT H INTAC T+CA IONIZ ED calcium 8.0 mg/dL 8.7-10 .2 below low normal Not Available [facility] ([facility]) [address] [place], [address], 12/10/2024 14:13:16 12/03/19 25 12/03/2024 CA+PT H INTAC T+CA IONIZ ED PTH, intact 33 pg/mL 15-65 normal Not Available [facility]) [address] [place], [address], 12/10/2024 14:13:16 12/03/19 25 12/03/2024 CA+PT H INTAC T+CA IONIZ ED calcium, ionized, serum 4.8 mg/dL 4.5-5. 6 Not Available [facility] ([facility]) [address] [place], [address], 12/10/2024 14:13:16 12/03/19 25 12/03/2024 TSH+F REE T4 TSH 0.049 uIU/m L 0.450- 4.500 below low normal Not Available [facility] ([facility]) [address] [place], [address], 12/10/2024 14:13:17 12/03/19 25 12/03/2024 TSH+F REE T4 T4,free(dire ct) 1.12 NG/dL 0.82-1 .77 normal Not Available [facility] ([facility] [address] [place], [address], 12/10/2024 14:13:17 12/03/1912/04/2024 METAN EPHRI JO ANN, PHEOC HROMO CYT creatinine, random U 138.0 mg/dL not estab. Not Available [facility] ([facility]) [address] [place], [address], 12/10/2024 14:13:17 12/03/19 25 12/07/2024 METAN EPHRI JO ANN, PHEOC HROMO CYT normetanephr ine, ur 260 ug/L undefi lavon Not Available [facility] ([facility] [address] [place], [address], 12/10/2024 14:13:17 12/03/19 25 12/07/2024 METAN EPHRI JO ANN, PHEOC HROMO CYT metanephrine , ur 88 ug/L undefi lavon Not Available [facility] ([facility]) [address] [place], [address], 12/10/2024 14:13:17 12/03/1912/07/2024 METAN EPHRI JO ANN, PHEOC HROMO CYT metaneph/cre at ratio 0.3 ug/mg _crea t 0.0-1. 0 Not Available [facility] ([facility]) [address] [place], [address], 12/10/2024 14:13:17 12/03/19 25 12/09/2024 FREE AND TOTAL INSUL IN free insulin 2.3 uu/mL Refer ence Range : Puber betsey Child coco and Adult s (fast ing): 0 - 17 Not Available [facility] [address] [facility] [address] [facility], [place], [address], 12/10/2024 14:13:18 12/03/19 25 12/09/2024 FREE AND TOTAL INSUL IN total insulin 2.4 uu/mL Non-D iabet ic: In the absen ce of insul in-bi nding antib odies , the free and total insul in assay s are equiv alent . Howev er, this assay is inten ded for use in diabe tics with insul in autoa ntibo dy prese nt. Measu remen t is perfo rmed on acid- treat ed sampl es and, there fore, the sensi tivit y and absol [place] value s by this metho d may diffe r from our direc t insul in ICMA. Insul in Depen dent Diabe tic Patie nts: Free Insul in level s vary depen ding on the capac ity and affin ity of circu latin g insul in-bi nding antib odies and the dose of insul in given to the patie nt. Total insul in level s repre sent free insul in and antib danny bound insul in fract ions. This test was devel oped and its perfo rmanc e angela cteri stics deter mined by [facility]. It has not been clear ed or appro juan c by the Food and Drug Admin istra tion. Not Available [facility] [address] [facility] [address] [facility], [place], [address], 12/10/2024 14:13:18 12/03/1912/03/2024 FSH AND LH LH 12.2 mIU/m L normal Adult Femal e Range Folli cular phase 2.4 - 12.6 Ovula tion phase 14.0 - 95.6 Lutea l phase 1.0 - 11.4 Postm enopa usal 7.7 - 58.5 Not Available [facility] ([facility] [address] [place], [address], 12/10/2024 14:13:18 12/03/1912/03/2024 FSH AND LH FSH 16.0 mIU/m L Adult Femal e Range Folli cular phase 3.5 - 12.5 Ovula tion phase 4.7 - 21.5 Lutea l phase 1.7 - 7.7 Postm enopa usal 25.8 - 134.8 Not Available [facility] ([facility] [address] [place], [address], 12/10/2024 14:13:18 12/03/1912/06/2024 METAN EPHRI JO ANN, FRAC. , PL. FREE normetanephr ine, pl 35.8 pg/mL 0.0-21 0.1 Not Available [facility] ([facility] [address] [place], [address], 12/10/2024 14:13:18 12/03/19 25 12/06/2024 METAN EPHRI JO ANN, FRAC. , PL. FREE metanephrine , pl <25.0 pg/mL 0.0-88 .0 Not Available [facility] ([facility] [address] [place], [address], 12/10/2024 14:13:18 12/03/1912/08/2024 GROWT H HORMO NE (ICMA ) growth hormone (icma) 0.327 NG/mL Refer ence Range : All Ages: <= 6 Not Available [facility] [address] [facility] [address] [facility], [place], [address], 12/10/2024 14:13:19 12/03/19 25 12/03/2024 CORTI PONCHO cortisol 11.0 ug/dL 6.2-19 .4 Pleas e Note: The refer ence inter aroldo and mireya ing for this test is for an AM colle ction . If this is a PM colle ction pleas e use: Corti poncho PM: 2.3-1 1.9 Not Available [facility] ([facility]) [address] [facility], [place], [address], 12/10/2024 14:13:19 12/03/19 25 12/05/2024 GASTR IN, SERUM gastrin, serum <10 pg/mL 0-115 Sieme ns Immul ite 2000 Immun ochem ilumi nomet aury assay (ICMA ) Value s obtai lavon with diffe rent assay metho ds or kits canno t be used inter barrett eably . Resul ts canno t be inter prete d as absol [place] evide nce of the prese nce or absen ce of daniella magaña se. Not Available [facility] ([facility]) [address] [facility], [place], [address], 12/10/2024 14:13:20 12/03/1912/03/2024 ACTH, PLASM A acth, plasma 12.8 pg/mL 7.2-63 .3 ACTH refer ence inter aroldo for sampl es colle cted betwe en 7 and 10 AM. Not Available [facility] ([facility]) [address] [facility], [place], [address], 12/10/2024 14:13:20 12/03/1912/03/2024 PROLA CTIN prolactin 12.4 NG/mL 4.8-33 .4 normal Not Available [facility] ([facility] [address] [place], [address], 12/10/2024 14:13:21 12/03/1912/03/2024 C-PEP TIDE, SERUM C-peptide, serum 1.3 NG/mL 1.1-4. 4 C-Pep tide refer ence inter aroldo is for fasti ng patie nts. Not Available [facility] ([facility]) [address] [facility], [place], [address], 12/10/2024 14:13:21 12/03/19 25 12/07/2024 PROIN SULIN proinsulin 2.8 pmol/ L 0.0-10 .0 Not Available [facility] ([facility] [address] [place], [address], 12/10/2024 14:13:22 12/03/19 25 12/04/2024 CHROM OGRAN IN A chromogranin A 33.7 NG/mL 0.0-10 1.8 Chrom ogran in A perfo rmed by Therm ofish er/BR AHMS KRYPT OR metho dolog y Value s obtai lavon with diffe rent assay metho ds or kits canno t be used inter [facility] . Not Available [facility] [address] [facility], [place], [address], 12/10/2024 14:13:22 12/03/19 25 12/10/2024 PANCR EATIC POLYP EPTID E pancreatic polypeptide 163.3 pg/mL 0.0-37 8.9 Pancr eatic Polyp eptid e perfo rmed by Regine pore Enzym e-leatha ked immun osorb ent assay (KAITLIN A) metho dolog y. Value s obtai lavon with diffe rent assay metho ds or kits canno t be used inter [facility] . Resul ts canno t be inter prete d as absol [place] evide nce of the prese nce or absen ce of daniella magaña . Not Available [facility] ([facility]) [address] [facility], [place], [address], 12/10/2024 14:13:23 12/03/19 25 12/04/2024 GLUCA JESSIKA, PLASM A glucagon, plasma 34 pg/mL 13-159 Not Available [facility] [address] [place], [address], 12/10/2024 14:13:23 12/03/19 25 12/13/2024 TSH AREA SECRETARY TOR ANTIB DANNY (TBII ) TSH receptor antibody (tbii) 14 U/L Refer ence Range : Antib danny Titer : <1.0 U/L = Negat eileen 1.1 - 1.5 U/L = Equiv ocal >1.5 U/L = Posit eileen Not Available [facility] [address] [place] [address], [address], 12/14/2024 06:08:43 12/03/1912/07/2024 THYRO GLOBU LEATHA ANTIB DANNY thyroglobuli n antibody 180.9 IU/mL 0.0-0. 9 above high normal Thyro globu leatha Antib danny measu red by Kevin Austint er Metho dolog y It shoul d be noted that the prese nce of thyro globu leatha antib odies may not be patho genic nor diagn ostic , espec ially at very low level s. The assay manuf actur er has found that four perce nt of indiv idual s witho ut evide nce of thyro id disea se or autoi mmuni ty will have posit eileen TgAb level s up to 4 IU/mL . Not Available [facility] [address] [place], [address], 12/14/2024 06:08:44 12/03/1912/05/2024 THYRO ID PEROX IDASE (TPO) AB thyroid peroxidase (tpo) Ab 522 IU/mL 0-34 above high normal Not Available [facility] ([facility] [address] [place], [address], 12/14/2024 06:08:44 12/03/1912/05/2024 TRIIO DOTHY DALY E (T3), FREE triiodothyro nine (T3), free 3.0 pg/mL 2.0-4. 4 normal Not Available [facility] [address] [place], [address], 12/14/2024 06:08:44 12/03/1912/04/2024 KARTIK EN AUTHO RIVIRGINIAT ION written authorizatio n Commen t Writt en Autho rizat ion Recei juan c. Autho rizat ion recei juan c from INTER FACE ADD 12-04 Logge d by Oli blakely Not Available [facility] [address] [facility], [place], [address], 12/14/2024 06:08:45 12/11/1912/08/2024 NM, sesta mibi scan No observ ation record ed. JUAN A [facility] [address] [facility] [place], [address], 12/10/2024 12:02:54 01/15/2011/11/2024 CT, pancr eas, w/ contr ast No observ ation record ed. [facility] Not Available 2024 10:52:08 01/15/2011/09/2024 PET-C T, skull base to mid-t high scan No observ ation record ed. [email or web address] [facility] [address] [facility] [place], [address], 01/14/2025 10:51:54 01/15/2012/08/2024 NM, sesta mibi scan No observ ation record ed. [address] [facility] [place], [address], 01/14/2025 10:51:37 Result Notes None recorded. Problems Name Problem SNOMED Code Status Onset Date Resolution Date Notes Provider Name and Address Organization Details Recorded Time Lymphocytic colitis 7655669313 Active 2024 Christian Gil DO [address], [place], [address], [place] - [facility] 17:30:37 Diarrhea 23442280 Active 2024 Christian Gil DO [address], [place], [address], [place] - [facility] 17:31:11 Abnormality of vasoactive intestinal peptide secretion 346016620 Active 2024 Christian Gil DO [address], [place], [address], [place] - [facility] 17:33:35 Thyroiditis 77274463 Active 2024 Christian Gil DO [address], [place], [address], [place] [facility] 17:34:09 Nausea 585865094 Active 2024 Christian Gil DO [address], [place], [address], [place] [facility] 17:34:51 Sick sinus syndrome 23357089 Active 2024 Christian Gil DO [address], [place], [address], [place] - [facility] 17:35:40 Systemic lupus erythematosus -related syndrome 063278298 Active 2024 Christian Gil DO [address], [place], [address], [place] - [facility] 17:36:04 Problem Notes None recorded. Procedures Surgical History Date Name Laterality Status Provider Name and Address Organization Details Recorded Time 10/21/19 25 Colposcopy completed Stacey Juanmes [place] - [facility] 11/26/2024 16:02:57 09/08/19 25 Pacemaker Placement completed Stacey Mcbride [place] - [facility] 11/26/2024 16:03:16 09/08/19 25 Cardiac Surgery completed Stacey Ortega-Dayomes [place] - [facility] 11/26/2024 16:03:16 05/28/19 25 Endoscopy completed Stacey Ortega-Dayomes [place] - [facility] 11/26/2024 16:03:16 12/22/19 09 Adnexal surgery completed Stacey Ortega-Dayomes [place] - [facility] 11/26/2024 16:03:16 11/25/19 09 Hysterectomy completed Stacey Juanmes [place] - [facility] 11/26/2024 16:03:16 01/16/20 04 Gastric Bypass completed Stacey Juanmes [place] - [facility] 11/26/2024 16:03:16 09/14/19 04 Caesarean Section completed Stacey Mcbride [place] - [facility] 11/26/2024 16:03:15 08/21/18 90 Tonsillectomy completed Stacey GARCIA - [facility] 11/26/2024 16:03:16 Imaging Results None recorded. Procedure Notes None recorded. Medical Equipment None Reported. Allergies No known drug allergies Medications Name Sig Start Date Stop Date Status Note LastModified by Organization Details LastModified Time fluconazole 100 mg tablet TAKE 1 TABLET (100 MG TOTAL) BY MOUTH DAILY NEEDED (YEAST INFECTION ) FOR UP TO 5 DAYS. 11/26 completed Not Available Not Available Not Available ivermectin 3 mg tablet TAKE 4 TABLETS BY MOUTH A SINGLE DOSE WITH A GLASS OF WATER 11/26 completed Not Available Not Available Not Available trazodone 50 mg tablet TAKE 1 TABLET BY MOUTH DAILY AT BEDTIME FOR SLEEP. active Not Available Not Available No t Available ondansetron HCl 8 mg tablet TAKE 1 TABLET BY MOUTH TWICE DAILY NEEDED FOR 15 DAYS FOR NAUSEA active Not Available Not Available No t Available meloxicam 15 mg tablet TAKE 1 TABLET BY MOUTH ONCE DAILY. 11/26 completed Not Available Not Available Not Available promethazin e 12.5 mg tablet TAKE 1 TABLET 4 TIMES A DAY BY MOUTH NEEDED FOR NAUSEA. active Not Available Not Available No t Available ondansetron HCl 4 mg tablet TAKE 1 TABLET BY MOUTH EVERY FOUR HOURS NEEDED active Not Available Not Available No t Available metronidazo le 500 mg tablet TAKE 1 TABLET EVERY 8 HOURS BY ORAL ROUTE FOR 14 DAYS. 11/26 completed Not Available Not Available Not Available omeprazole 40 mg capsule,del ayed release TAKE 1 CAPSULE BY MOUTH TWICE DAILY. 11/26 completed Not Available Not Available Not Available bisoprolol fumarate 10 mg tablet TAKE 1 TABLET BY MOUTH DAILY. active Not Available Not Available No t Available levothyroxi ne 75 mcg tablet TAKE 1 TABLET BY MOUTH ONCE DAILY IN THE MORNING. 11/26 completed Not Available Not Available Not Available cyproheptad ine 4 mg tablet TAKE 1 TABLET BY MOUTH NIGHTLY. active Not Available Not Available No t Available oxycodone-a cetaminophe n 5 mg-325 mg tablet TAKE 1 TABLET BY MOUTH EVERY 6 HOURS NEEDED FOR PAIN FOR UP TO 2 DAYS 11/26 completed Not Available Not Available Not Available methocarbam ol 750 mg tablet TAKE 1 TABLET BY MOUTH 4 TIMES DAILY NEEDED FOR MUSCLE PAIN. DO NOT TAKE WITH CYCLOBENZ APRINE active Not Available Not Available No t Available dicyclomine 20 mg tablet TAKE 1 TABLET BY MOUTH 4 TIMES DAILY NEEDED FOR DIARRHEA, ABDOMINAL PAIN active Not Available Not Available No t Available levothyroxi ne 50 mcg tablet TAKE 1 TABLET BY MOUTH ONCE DAILY. active Not Available Not Available No t Available furosemide 20 mg tablet TAKE 1 TABLET BY MOUTH ONCE DAILY NEEDED. active Not Available Not Available No t Available azelastine 137 mcg (0.1 %) nasal spray PLACE 1 SPRAY INTO EACH NOSTRIL TWICE DAILY active Not Available Not Available No t Available budesonide DR - ER 3 mg capsule,del ayed,extend ed release TAKE 3 CAPSULES BY MOUTH DAILY FOR 28 DAYS. active Not Available Not Available No t Available hydroxychlo roquine 200 mg tablet TAKE 1 TABLET BY MOUTH DAILY. 12/10 completed Not Available Not Available Not Available levofloxaci n 750 mg tablet TAKE 1 TABLET EVERY DAY BY ORAL ROUTE FOR 14 DAYS. 11/26 completed Not Available Not Available Not Available methylpredn isolone 4 mg tablets in a dose pack TAKE 6 TABLETS ON DAY 1,THEN 5 TABS ON DAY 2,THEN 4 TABS ON DAY 3, 3 TABS ON DAY 4,THEN 2 TABS ON DAY 5 AND 1 TAB ON DAY 6. *TAKE WITH FOOD* 11/26 completed Not Available Not Available Not Available hydroxyzine HCl 10 mg tablet TAKE 1 TABLET BY MOUTH 3 TIMES DAILY NEEDED FOR ANXIETY/S LEEP active Not Available Not Available No t Available bromphenira mine-pseudo ephedrine-D M 2 mg-30 mg-10 mg/5 mL oral syrup TAKE 10 ML EVERY 4 HOURS BY MOUTH EVERY 4 HOURS NEEDED FOR COUGH active Not Available Not Available No t Available colestipol 1 gram tablet TAKE 2 TABLETS TWICE A DAY BY ORAL ROUTE FOR 7 DAYS. 11/26 completed Not Available Not Available Not Available doxycycline hyclate 100 mg tablet TAKE 1 TABLET BY MOUTH TWICE DAILY. 11/26 completed Not Available Not Available Not Available amoxicillin 875 mg-potassiu m clavulanate 125 mg tablet TAKE 1 TABLET EVERY 12 HOURS BY ORAL ROUTE FOR 7 DAYS. 11/26 completed Not Available Not Available Not Available midodrine 10 mg tablet TAKE 1 TABLET BY MOUTH 3 TIMES DAILY BEFORE MEALS. 11/26 completed Not Available Not Available Not Available escitalopra m 10 mg tablet TAKE 1 TABLET BY MOUTH TWICE DAILY. active Not Available Not Available No t Available cyclobenzap rine 5 mg tablet TAKE 1 TABLET BY MOUTH DAILY AT BEDTIME NEEDED FOR PAIN. DO NOT TAKE WITH METHOCARB SAMUEL active Not Available Not Available No t Available topiramate 50 mg tablet TAKE 1 TABLET BY MOUTH TWICE DAILY. 12/10 completed Not Available Not Available Not Available lubiproston e 8 mcg capsule TAKE 1 CAPSULE BY MOUTH TWICE DAILY WITH MEALS. active Not Available Not Available No t Available Xifaxan 550 mg tablet TAKE 1 TABLET BY MOUTH THREE TIMES DAILY active Not Available Not Available No t Available Creon 36,000 unit-114,00 0 unit-180,00 0 unit capsule,del ayed release TAKE 1 CAPSULE 3 TIMES A DAY BY ORAL ROUTE FOR 10 DAYS. 11/26 completed Not Available Not Available Not Available Vitals Date Recorded Body weight Body mass index (BMI) Body height Provider Name and Address Organization Details Last Updated DateTime 11/26/2024 37823.92 g 23.5 kg/m2 157.48 cm Stacey Mcbride [place] - [facility] 11/26/2024 16:01:54 Social History Question Answer Notes LastModified by Organizat ion Details LastModified Time Tobacco Smoking Status Never Smoker Stacey Mcbride null, [place] - [facility] 11/26/2024 16:03:09 Do You Have An Advance Directive? No Information not available 11/26/2024 How Many Years Have You Consumed Alcohol? 4 Information not available 11/26/2024 Is Blood Transfusion Acceptable In An Emergency? Yes Information not available 11/26/2024 What Is Your Level Of Caffeine Consumption? Moderate Information not available 11/26/2024 How Much Tobacco Do You Chew? None Information not available 11/26/2024 Are You Deaf Or Do You Have Serious Difficulty Hearing? No Information not available 11/26/2024 What Type Of Diet Are You Following? SPECIFIC Information not available 11/26/2024 Which Illicit Or Recreational Drugs Have You Used? None Information not available 11/26/2024 What Is The Highest Grade Or Level Of School You Have Completed Or The Highest Degree You Have Received? [id number] Information not available 11/26/2024 What Was The Date Of Your Most Recent Tobacco Screening? 11/26/2024 Information not available 11/26/2024 How Many Children Do You Have? 5 Information not available 11/26/2024 Do You Use Protection Against STDs? No Information not available 11/26/2024 What Is Your Relationship Status? Information not available 11/26/2024 Do You Use Your Seat Belt Or Car Seat Routinely? Yes Information not available 11/26/2024 Are You Sexually Active? Yes Information not available 11/26/2024 Do You Have Smoke And Carbon Monoxide Detectors In Your Home? Yes Information not available 11/26/2024 Are You Passively Exposed To Smoke? No Information no t available 11/26/2024 Do You Use Sunscreen Routinely? Yes Information not available 11/26/2024 Sex: Female Functional Status Question Answer Note LastModified by Organizat ion Details LastModified Time Do you use any illicit or recreational drugs? No Information not available 11/26/2024 What is your level of alcohol consumption? Occasional Information not available 11/26/2024 Do you or have you ever used smokeless tobacco? Never used smokeless tobacco Information not available 11/26/2024 Are you currently employed? Yes Information not available 11/26/2024 Are you able to care for yourself independently? 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 Never used electronic cigarettes Information not available 11/26/2024 What is your exercise level? Heavy Information not available 11/26/2024 Mental Status Question Answer Note LastModified by Organization D etails LastModified Time Do you feel stressed (tense, restless, nervous, or anxious, or unable to sleep at night)? [id number] Information not available 11/26/2024 Family History Nothing Reported. Medical History Condition Response Heart Problems Y Atrial Fibrillation Y Thyroid Problems Y Murmur Y Anemia Y Constipation Y Ovarian Cyst Y Anxiety Disorder Y Vision or Eye Problems Y Head Injury/Concussion Y Insomnia Y Stroke Y Blood clot Y Endometriosis Y Hypercholesterolemia Y Neuropathy Y Heart Disease Y Headaches Y Hypertension Y Concussion Y Gynecological History Statement/Question Response Abnormal Pap N Date of LMP 11/20/2008 Sexually Active? Y Post Menopausal Bleeding N STIs/STDs N Colposcopy 10/20/2024 HPV Vaccine Y Sexual Problems? N Age at Menarche 9 Current Control Method None Age at First Child 18 Hormone Replacement Therapy N Obstetrics History GPAL:G 0 P 0 0 0 0 Immunizations Vaccine Type Date Status Note Provider Nam e and Address Organization Details Recorded Time Hep B, unspecified formulation 8 completed Not Available [facility] 11/26/2024 15:59:18 Tdap 1 completed Not Available [facility] 11/26/2024 15:59:18 COVID-19 vaccine, vector-nr, [id number], PF, 0.5 mL 1 completed Not Available [facility] 11/26/2024 15:59:18 influenza, unspecified formulation 2 completed Not Available [facility] 11/26/2024 15:59:18 influenza, unspecified formulation 3 completed Not Available [facility] 11/26/2024 15:59:18 SARS-COV-2 (COVID-19) vaccine, UNSPECIFIED 4 completed Not Available [facility] 11/26/2024 15:59:18 influenza, unspecified formulation 4 completed Not Available [facility] 11/26/2024 15:59:18 Past Encounters Encounter ID Performer Location Encounter Start Date Encounter Closed Date Diagnosis/Indication Diagnosis SNOMED-CT Code Diagnosis ICD10 Code Diagnosis IMO Codes Diagnosis Note [id number] Christian Gil DO [facility] [address] [place] [address] 11/26/2024 15:58:41 11/26/2024 16:44:16 Lymphocytic colitis 6758183445 K52.832 [id number] Lymphocyti c colitis. Patient will continue the budesonide as currently prescribed . Patient will continue to follow with gastroente rology as scheduled. Diarrhea 57689949 R19.7 [id number] Frequent diarrhea. Patient recently finished antibiotic course of rifaximin for concerns of infectious etiologies with no improvemen t in her symptoms. Patient has not gotten improvemen t with treatment of her lymphocyti c colitis. Medication management has not decreased the frequency of her stooling at this point failing Creon and colespidol . Concerns regarding hyper secretory disease. Will work that up further with labs. Abnormalit y of vasoactive intestinal peptide secretion 431373321 R79.89 [id number] Elevated VIP level. Patient had negative PET/CT only showing pancreatic lesion. Follow-up pancreatic CT did not show lesion. Will continue to follow. Thyroiditis [id number] E06 .9 95761 Thyroiditi s. Patient was advised to keep follow-up with endocrinol ogy next week for ongoing workup and treatment. Nausea 227499911 R11.0 91580 Nausea. Not improved. Patient will continue the Phenergan and Zofran as written and I did advise patient to restart the omeprazole twice daily to see if that helps with her symptoms. Again, I am concerned about hypersecre tory disorders causing her symptoms. Sick sinus syndrome 3608 3008 I49.5 3922 Sick sinus syndrome status post pacemaker. Patient will continue the bisoprolol as written and will continue follow-up with cardiology as scheduled. Systemic l upus erythematosus-related syndrome [id number] M32.9 801950 Lupus. Did advise patient to continue follow-up with rheumatolo gy as scheduled 12/04/24. Do believe patient could be on the hydroxychl oroquine for the lupus so we will continue it. Normal weight 84283694 Z 68.23 [id number] Health Concerns Section Related Observation LastModified by Organization Detai ls LastModified Time None Recorded Concern Status LastModified by Organization Details LastModified Time None Recorded Advance Directives Directive N: Payers Insurance Date Sequence Insurance Name Policy Number Policy [place] Covered Member ID Soto Member ID Guarantor Name 12/18/2024 1 [employer]: MOHIT [employer] OF [place] - [employer] [address] Long [id number] Alexandrea Long Notes Date Note Type Note Provider Name and Address Organization Details Recorded Time text/html 39-year-old female seen in the office today to discuss her chronic conditions.Patient has had multiple and ongoing concerns regarding her health over the last 8 months. Patient states she has had ongoing abdominal pain, nausea, and diarrhea. Patient was recently hospitalized and had EGD consistent with lymphocytic colitis and was started on budesonide. Patient has been on budesonide for approximately 4 weeks without improvement in her symptoms. During that hospitalization, patient was also found to have a elevated vasoactive intestinal peptide. Patient had a follow-up PET CT performed which highlighted a spot on her pancreas but was otherwise negative. Patient then had a follow-up CT which did not show any evidence of pancreatic mass cyst or other abnormality. Patient states that she does continue with the diarrhea symptoms stating that she has had 20-30 bowel movements today.Patient also has a history of Janeen's thyroiditis that she is currently prescribed hydroxychloroquine and recently discontinued meloxicam. Patient states that recently her thyroid became swollen hot and painful. Patient recently had an ultrasound performed which showed hypervascularization consistent with thyroiditis. Patient states that this is causing her some dysphagia and states that she is having trouble eating, only tolerating soft foods currently. Patient states that her recent TSH was low and her levothyroxine dose was recently decreased. Patient states she does have a follow-up with gastroenterology scheduled and has a new appointment now with endocrinology for further evaluation.Patient is also describing daily headaches. Patient is currently on topiramate 50 mg twice daily for her headaches but states that she is continuing to get them. Patient feels like it might be related to decreased p.o. intake and/or hydration status further worsening of her symptoms.Patient is also been diagnosed in the past with lupus. 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 Patient continues on bisoprolol that she takes 10 mg daily to keep her heart rate under control. Patient states she was taken off that medication and her heart rate went very high so she had to be restarted on it. Christian Gil DO [address], [place], [address], [place] [facility] 11/26/2024 17:38:13 OBGyn Episode No OBEpisode recorded.
--- OUTSIDE RECORDS SUMMARY | 2025-04-16 20:53 | XMS_ITS | Encounter Summary ---
Author Organization [facility] ([place], [place], [place], [place], [place]) Address [address] [place] [address] Care Team Providers Care Automatic Beading Lathe Operator Name Role Phone Roopa Mcfarland TORY Primary Care Provider Encounter Details Date Type Department Care Team (Late st Contact Info) Description 10/04/2018 Transcribed Document [facility] [place] [address] ProviderJoann MD [address] [place] [id number] Social History Tobacco Use Types Packs/Day Years Used Date Smoking Tobacco: Never Assessed Comments Unknown Sex and Gender Information Value Date Recorded Sex Assigned at Not on file Legal Sex Female 4:43 PM CDT Gender Identity Not on file Sexual Orientation Not on file documented as of this encounter Miscellaneous Notes * Cerner Conversion Note - Joann ProviderMD - 10/04/2018 11:[address] [facility] OT Charges Entered On: 10/04/2018 11:25 EDT Performed On: 10/04/2018 11:24 EDT by MATTHIAS STAHL OTR/Basilia Landry OT Charges Screen For Kettle Operator : 1 MATTHIAS STAHL OTR/Basilia - 10/04/2018 11:24 EDT documented in this encounter Plan of Treatment Not on file documented as of this encounter Visit Diagnoses Not on filedocumented in this encounter Care Teams Automatic Beading Lathe Operator Relationship Specialty Start Date End Date Roopa Mcfarland, TORY [address] [place] [address] PCP - General Nurse Practitioner 01/20/25 documented as of this encounter
--- OUTSIDE RECORDS SUMMARY | 2025-04-16 20:53 | XMS_ITS | Continuity of Care Document ---
Author Organization [facility], FAMILY MEDICINE JADYN Address [address] [place] [address] Care Team Providers Care Muleser Name Role Phone JONNY CANADA Primary Care Provider DEVI MOSQUERA [employer] Cutting Machine Operator [phone] MICHAEL HYMAN General Surgeon Assessment Encounter Date Assessment Date Assessment LastModified by Organization Details LastModified Time 03/15/2025 03/15/2025 - This is a 39-year-old female with a complex medical history including a pancreatic mass and Graves' disease, presenting with symptoms consistent with acute sinusitis. - Acute maxillary sinusitis: The patient's report of green nasal drainage for two weeks is consistent with acute bacterial sinusitis, warranting antibiotic therapy. 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 Her case is complex, managed by specialists at [facility], and the planned PEG tube placement reflects the severity of her condition. - Graves' disease: Her active thyroid disease is evidenced by an enlarged thyroid, positive TSI antibodies, and associated symptoms including hyperhidrosis, hot flashes, voice changes, and dysphagia. These symptoms may also overlap with perimenopausal symptoms. Further evaluation is pending lab results. - Alopecia: The patient is experiencing significant, widespread hair loss. This is likely related to her autoimmune condition (Graves' disease) or other systemic illness and requires further dermatologic and endocrinologic investigation. - Restlessness and agitation: These symptoms were likely an adverse effect of Lexapro and have resolved upon discontinuation. She is currently stable on hydroxyzine. Not available 03/15/2025 16:58:22 Plan of Treatment Reminders Order Date Submit Date Provider Last Modified By Organization Details Last Modified Time Details Appointments None recorded. Lab None recorded. Referral None recorded. Procedures None recorded. Surgeries None recorded. Imaging None recorded. Medication Orders amoxicillin 500 mg capsule 2024 025 [facility], [address] [facility] [place], [address], 05:01:57 Diflucan 150 mg tablet 2024 025 [facility], [address] [facility] [place] [place], [address], 16:54:16 Patient TargetsNo targets recorded. Patient Instructions Encounter Date Encounter Id Patient Instructions Last Modified By Organization Details Last Modified Time 03/15/2025 [id number] - Take the amoxicillin as prescribed for your sinus infection. - I have sent a prescription for two pills of Diflucan. If you start to have symptoms of a yeast infection, take the first pill. You can take the second pill 72 hours (3 days) after the first if needed. - Your prescriptions have been sent to the [facility]. - Regarding your lab work, try scheduling an appointment online through the [facility] website, since it is difficult to reach them by phone. - Continue to follow up with your specialists for your other health issues. - Please let us know if you need anything else. [email or web address] Not available 03/15/2025 16:48:15 Reason for Referral None Reported. Problems Name Problem SNOMED Code Status Onset Date Resolution Date Notes Provider Name and Address Organization Details Recorded Time Family history of coronary arterios clerosis 408124919 Active 2016 COLEEN VEGA PA-C [address] [place], [address], [facility] 7 11:04:15 Gastroes ophageal reflux disease 458987644 Active 2021 JONNY CANADA, BASEBALL HAND SEWER [address] [place], [address], [facility] 2 17:19:24 Sick sinus syndrome 27867303 Active 2021 JONNY CANADA, BASEBALL HAND SEWER [address] [place], [address], [facility] 2 17:19:26 Anxiety disorder 218386505 Active 2021 JONNY CANADA, BASEBALL HAND SEWER [address] [place], [address], [facility] 2 17:19:27 Migraine 72923009 Active 2021 JONNY CANADA, BASEBALL HAND SEWER [address] [place], [address], [facility] 2 17:19:28 Pain of joint of elbow 998621846 Active 2021 JONNY CANADA, BASEBALL HAND SEWER [address] [place], [address], [facility] 2 17:19:30 History of cerebrov ascular accident 482617049 Active 2021 JONNY CANADA, BASEBALL HAND SEWER [address] [place], [address], [facility] 2 17:20:42 Hypothyr oidism 23529308 Active 2021 JONNY CANADA, BASEBALL HAND SEWER [address] [place], [address], [facility] 2 17:22:19 History of bypass of stomach 038011237 Active 2021 JONNY CANADA, BASEBALL HAND SEWER [address] [place], [address], [facility] 2 17:22:40 Implanta tion of cardiac biventri cular permanen t pacemake r using fluorosc opic guidance Active 2021 JONNY CANADA, BASEBALL HAND SEWER [address] [place], [address], [facility] 2 17:23:04 Inflamma tory polyarth ropathy 030058351 Active 2022 JONNY CANADA, BASEBALL HAND SEWER [address] [place], [address], [facility] 3 13:05:39 Hashimot o thyroidi tis 42336293 Active 2022 JONNYBARRON CANADA, BASEBALL HAND SEWER [address] [place], [address], [facility] 3 13:05:40 Iron deficien cy anemia 46867329 Active 2022 JONNY JULISSA CANADA, BASEBALL HAND SEWER [address] [place], [address], [facility] 3 13:05:41 Low blood pressure 91605358 Active 2022 JONNY JULISSA CANADA, BASEBALL HAND SEWER [address] [place], [address], [facility] 3 13:05:45 History of traumati c brain injury 80541357231 100 Active 2022 JONNY JULISSA DREAD, BASEBALL HAND SEWER [address] [place], [address], [facility] 3 13:05:49 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 50533874171 453526 Completed 202208/17/2022 history JONNY CANADA, BASEBALL HAND SEWER [address] [place], [address], [facility] 3 17:15:27 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 94780704848 469034 Active 2022 hx traumati c dissecti on JONNY CANADA, BASEBALL HAND SEWER [address] [place], [address], [facility] 3 17:15:27 Bariatri c operativ e procedur e Completed 202307/02/2024 JONNY JULISSA CANADA, BASEBALL HAND SEWER [address] [place], [address], [facility] 5 13:15:20 Cerebrov ascular accident 480666605 Active 2023 FRANK ANDREA MD [address] [place], [address], [facility] 4 11:24:19 Cardiac pacemake r in situ 029245164 Active 2023 FRANK ANDREA MD [address] [place], [address], [facility] 4 11:24:55 Syncope due to orthosta tic hypotens ion 348420661 Active 2023 FRANK ANDREA MD [address] [place], [address], [facility] 4 11:25:13 Traumati c brain injury 725264249 Active 2023 FRANK ANDREA MD [address] [place], [address], [facility] 4 11:28:17 Insomnia 246786028 Active 2024 JONNY CANADA, BASEBALL HAND SEWER [address] [place], [address], [facility] 5 10:25:59 Chronic diarrhea 174683831 Active 2024 JONNY CANADA, BASEBALL HAND SEWER [address] [place], [address], [facility] 5 17:16:18 Nausea 921065704 Active 2024 JONNY CANADA [employer]ALL HAND SEWER [address] [place], [address], [facility] 5 17:16:22 Suprapub ic pain 300687227 Active 2024 JONNY CANADA, BASEBALL HAND SEWER [address] [place], [address], [facility] 5 17:16:23 Polycyst ic ovary syndrome 568803855 Active 2024 JONNY CANADA, BASEBALL HAND SEWER [address] [place], [address], [facility] 5 17:16:25 Female urinary stress incontin ence 85811220 Active 2024 JONNY CANADA, BASEBALL HAND SEWER [address] [place], [address], [facility] 17:16:26 Irritabl e bowel syndrome 67023759 Active 2024 JONNY CANADA, BASEBALL HAND SEWER [address] [place], [address], [facility] 10:43:55 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 451140383 Active 2024 JONNY CANADA, BASEBALL HAND SEWER [address] [place], [address], [facility] 17:07:26 Goiter 5935685 Active 2024 JONNY CANADA, BASEBALL HAND SEWER [address] [place], [address], [facility] 17:13:30 Mass of pancreas 254345487 Active 2024 ALEXA TREJO PA-C [address] [place], [address], [facility] 16:36:35 Restless ness and agitatio n 975764343 Active 2024 ALEXA TREJO PA-C [address] [place], [address], [facility] 16:39:51 Alopecia 83322671 Active 2024 ALEXA TREJO PA-C [address] [place], [address], [facility] 16:43:01 Congesti on of nasal sinus 39345009 Active 2024 ALEXA TREJO PA-C [address] [place], [address], [facility] 16:43:21 Problem Notes None recorded. Procedures Surgical History Date Name Laterality Status Provider Name and Address Organization Details Recorded Time 06/10/19 25 TCM completed Radha Story [facility] 06/09/2024 06:29:25 06/03/19 25 Colonoscopy completed Tosin Vdovenko [facility] 06/10/2024 08:51:24 06/03/19 25 endoscopy completed Tosin Vdovenko [facility] 06/10/2024 08:51:32 09/19/19 24 EKG completed Ramila Riddle [facility] 09/19/2023 08:40:31 12/13/19 21 Pap Smear collection completed PARTHA WAGONER, BASEBALL HAND SEWER [address] [place], [address], [facility] 12/12/2020 12:31:44 [facility]ils and adenoids [facility] 12/12/2020 11:15:33 Gstr rstcv px shrt merissa-en-y [facility] 11:15:44 Cholecystectomy completed Luciana Wiedemer [facility] 12/12/2020 11:15:52 section completed Luciana Wiedemer [facility] 12/12/2020 11:16:47 hysterectomy completed Luciana Wiedemer [facility] 12/12/2020 11:16:58 cardiac pacemaker procedure [facility] 12/12/2020 11:17:06 neck repair completed Tosin Vdovenko [facility] 01/12/2022 15:37:18 procedure completed Tosin Vdovenko [facility] 01/12/2022 15:38:12 surgical procedure completed Tosin Vdovenko [facility] 11/13/2024 14:56:00 procedure completed Tosin Vdovenko [facility] 03/15/2025 16:13:39 Imaging Results None recorded. Procedure Notes None recorded. 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[id number] Y Uche haas [facility] 09/10/2023 09:17:56 Allergies Allergen ID Allergen Name Allergen Category Reaction Reaction Severity Criticality Documentation Date Start Date Code Code System Note Provider Name and Address Organization Details Recorded Time 613614 Robitussi n medicatio n rash moderate Not available 03/16/20162006 00997 2 RxNorm React ion: RASH; Sever ity: Moder ate; Comme nt: Creat ed By: Nasim domínguez;Alexis reate d Date: 2006 4:08: 57 PM; Tosin Shin [facility] 2 15:14:25 378321 adhesive tape environme nt,medica tion hives Not available Not available 01/12/2022 Tosin Shin [facility] 2 15:15:04 Medications Name Sig Start [...] day by oral route for 30 days. 02/08 completed Not Available Not Available Not Available [...] e 137 mcg (0.1 %) nasal spray Gustine 1 spray twice a day by intranas [...] and Address Organization Details Last Updated DateTime 5 160.02 cm 25 kg/m2 72746.6 2 g 98 [degF] 100 % 72 /min 98/72 mm[Hg] Tosin Shin [facility] 5 16:16:40 Social History Question Answer Notes LastModified by [employer] Details LastModified Time Tobacco Smoking Status Never Smoker Luciana Acuna [facility] 12/12/2020 11:15:22 What Is Your Level Of Caffeine Consumption? Moderate 2 Cans Soda/day [email or web address] Information not available 05/29/2023 What Is The Highest Grade Or Level Of School You Have Completed Or The Highest Degree You Have Received? [id number] [employer] [place] [employer] [email or web address] Information not available 05/29/2023 What Was The Date Of Your Most Recent Tobacco Screening? 11/13/2024 Information not available 11/13/2024 How Many Children Do You Have? 5 Blended Family [email or web address] Information not available 05/29/2023 What Is Your Relationship Status? Single Engaged [email or web address] Information not available 05/29/2023 Do You Use [...] is your level of alcohol consumption? None [email or web address] Information not available 05/29/2023 Are you currently employed? Yes [email or web address] Information not available 05/29/2023 What is your exercise level? Moderate Information not available 01/23/2022 Mental Status None recorded. Family History Relationship Description Onset Age of this Age Resolved Age Notes LastModified by Organization Details LastModified Time Paternal Grandmother Malignant neoplasm of uterus [email or web address] Not available 2020 11:14:49 Paternal Grandmother Malignant neoplasm of breast [email or web address] Not available 2024 11:11:16 Father Hyperlipidem ia [email or web address] Not available 04/22 11:19:44 Father Hypertensive disorder Not available 04/22 11:19:33 Father Myocardial infarction 29 [email or web address] Not available 02/2023 11:19:13 Father Salcedo's esophagus [email or web address] Not available 04/22 11:20:01 Mother Disorder of thyroid gland [email or web address] Not available 04/22 11:20:09 Mother Hypertensive disorder [email or web address] Not available 04/22 11:19:38 Maternal Uncle Myocardial infarction 29 29 Not available 02/2023 11:19:13 Medical History Condition Response Anxiety Disorder Y Blood Clot Y Blood Transfusion Y High Cholesterol Y Headaches Y Thyroid Problems Y Stroke Y Hypertension Y Depression Y Gynecological History [...] SARS-COV-2 (COVID-19) vaccine, UNSPECIFIED 4 completed Tosin Alanaovenko [facility] 04/24/2024 14:08:19 influenza, unspecified formulation 4 completed Tosin Kip [facility] 04/24/2024 14:08:28 influenza, unspecified formulation 2 completed Not Available [facility] 05/29/2023 13:13:56 Hep B, unspecified formulation 8 completed Not Available [facility] 05/29/2023 13:13:56 Tdap 1 completed Not Available [facility] 05/29/2023 13:13:56 COVID-19 vaccine, vector-nr, rS-Ad26, PF, 0.5 mL 1 completed Jorge Luis Melo [facility] 02/27/2023 12:04:19 influenza, unspecified formulation 3 completed JONNY CANADA, BASEBALL HAND SEWER [address] [place], [address], [facility] 05/29/2023 14:12:31 Past Encounters Encounter ID Performer Location Encounter Start Date Encounter Closed Date Diagnosis/Indication Diagnosis SNOMED-CT Code Diagnosis ICD10 Code Diagnosis IMO Codes Diagnosis Note [id number] ALEXA TREJO PA-C [address] [address] 03/15/2025 16:03:13 03/15/2025 16:54:30 Mass of pancreas 539886669 K86.89 R61 523173 Issues with eating and has been seeing [facility] to evaluate that. Pt had to pull her NG tube.- Continue to follow with specialist s at [facility]. - Patient will proceed with scheduled PEG tube placement. Restlessne ss and agitation 242705391 R45.1 06278 Stopped the Lexapro for the past week. Has tolerated that well.- Continue discontinu ation of Lexapro. - Continue hydroxyzin e as needed, which seems to be effective. Alopecia 94242247 L65.9 29847 - Continue to follow with specialist s for management .-Could be related to hormones or thyroid. Has been to dermatolog y and would recommend returning for further evaluation if symptoms are worsening. Sometimes biopsies are required for definitive diagnosis. Congestion of nasal sinus 47880259 J01.00 R09.81 677673 - Prescribed amoxicilli n.- Prescribed two doses of fluconazol e to be taken as needed for symptoms of a yeast infection. - Prescripti ons sent to the [facility] Health Concerns Section Related Observation LastModified by Organization Detai ls LastModified Time None Recorded Concern Status LastModified by Organization Details LastModified Time None Recorded Payers Encounter Date Sequence Insurance Name Policy Number Policy Soto Covered Member ID Soto Member ID Guarantor Name 03/15/2025 1 [place] MOHIT KULKARNI OF [place] - [employer] [id number] [id number] Alexandrea Bermudez Notes Date Note Type Note Provider Name and Address Organization Details Recorded Time 03/15/2025 text/html she need severe hair loss, acne, night sweats, fatigue, mood swings. she stopped lexapro .also she stopped NG tube past saturday.she has dry cough for 2 days, nasal drainage for 2 weeks.no flu shot.The patient is a 39 year old female presenting with green nasal drainage for two weeks. Acute maxillary sinusitis, unspecified: - The patient reports a two-week history of green nasal drainage. Mass of pancreas: - The patient has been sick since April and was found to have a mass on her pancreas. - She experiences abdominal swelling, distension, and severe pain with food intake, as she does not break down or process food properly. - She is managed by [facility] for this complex condition. - She recently had an NG tube for five weeks, which was removed due to nasal drainage and inflammation. - Prior treatments have included budesonide and two courses of xifaxan. - A PEG tube placement is scheduled for the week of April 05. Graves' disease: - Her thyroid is enlarged again. - Testing at [facility] revealed a positive TSI, consistent with Graves' disease. - During flare-ups, her voice changes, her thyroid becomes tender, and she experiences dysphagia. - A previous heading maker had diagnosed her with thyroiditis. - She is currently on a 25 mcg dose of a thyroid medication. Alopecia: - The patient reports significant hair loss, stating her hair is almost gone and she has no eyebrows. - A supervising chef suggested this could be the beginning of alopecia. Generalized hyperhidrosis and Perimenopausal state: - She has been experiencing night sweats for six months, along with severe hot flashes. - Previous lab work indicated she was borderline for perimenopause. Restlessness and agitation: - The patient reported feeling severely aggressive and more agitated than usual while taking Lexapro. - She discontinued Lexapro on the prior and is now taking only hydroxyzine, which has been effective. Documentation on this patient encounter was supported using voice-enabled Al technology. The patient consented to recording for the purpose of documenting the encounter. Provider reviewed content of the generated note prior to signature. ALEXA TREJO PA-C [address] [place], [address], [facility] 03/15/2025 16:59:16 OBGyn Episode No OBEpisode recorded.
--- OUTSIDE RECORDS SUMMARY | 2025-04-16 20:53 | XMS_ITS | Encounter Summary ---
Author Organization [employer] ([place], [place], [place], [place], [place]) Address [address] [place] [address] Care Team Providers Care Aircraft Log Clerk Name Role Phone Roopa Mcfarland TORY Primary Care Provider Encounter Details Date Type Department Care Team (Late st Contact Info) Description 10/05/2018 Transcribed Document [facility] [place] Family Medicine [facility] [place] [address] ProviderJoann MD [address] [place] [phone] Social History Tobacco Use Types Packs/Day Years Used Date Smoking Tobacco: Never Assessed Comments Unknown Sex and Gender Information Value Date Recorded Sex Assigned at Not on file Legal Sex Female 4:43 PM CDT Gender Identity Not on file Sexual Orientation Not on file documented as of this encounter Miscellaneous Notes * Cerner Conversion Note - Joann Tello MD - 10/05/2018 4:51 PM CDT Nursing Discharge Summary Entered On: 10/05/2018 16:52 EDT Performed On: 10/05/2018 16:51 EDT by Jennifer Garcia RN Discharge Documentation Discharge Date/Time : 10/05/2018 16:51 EDT Transporter Signature : Jennifer Garcia RN Patient Disposition, General : Discharge Discharge To : Home with ambulatory/outpatient follow-up Mode Of Departure, General Discharge : Private vehicle Accompanied By, Discharge : Spouse IV Discontinued : Yes Medications Given to Patient : No Personal Belongings With Patient : Yes Prescriptions Given to Patient : Electronically sent Discharge Instructions Reviewed With, Opportunity For Questions Given : Patient Patient Education Completed : Yes Teaching Method : Explanation, Printed materials Teaching Evaluation : Verbalizes understanding Jennifer Garcia RN - 10/05/2018 16:51 EDT documented in this encounter Plan of Treatment Not on file documented as of this encounter Visit Diagnoses Not on filedocumented in this encounter Care Teams Aircraft Log Clerk Relationship Specialty Start Date End Date Roopa Mcfarland FNP [address] [place] [address] PCP - General Nurse Practitioner 01/20/25 documented as of this encounter
--- OUTSIDE RECORDS SUMMARY | 2025-04-16 20:54 | XMS_ITS | Data Portability ---
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 order Medrol dosepak for inflammati on. - Continue current thyroid medication and monitor thyroid function tests regularly to assess the need for medication adjustment .- Consider a swallow evaluation to determine the cause of swallowing difficulti es and assess if thyroid enlargemen t is contributi ng to symptoms. 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 As pt reports persistent bloating, requesting referral [facility]. Will refer. [id number] ROOPA MCFARLAND, CHEMISTRY DEPARTMENT CHAIR [facility] [address] [place] [address] 01/27/2025 14:40:52 01/28/2025 08:46:17 Diarrhea [id number] R19.7 [id number] - Monitor stool frequency and consistenc y. Continue pushing water, electrolyt e drink intake to avoid dehydratio n.BP 90/66, stable and consistent with prev. BPs.- Plan for further evaluation and management at [facility]. Vasoactive intestinal peptide-secreting tumor [id number] C7A.8 56954 newly diagnosed- pancreatic lesion requires further evaluation with an MRCP, scheduled 01/2025Wil l request most recent [facility] note. Seen in department [id number] Z76.89 [id number] 01/20/[facility] EDreviewed d/c summary, labs. Nausea [id number] R11.0 Pt endorses frequent nausea. Alternatin g Zofran and promethazi ne. Will continue.c ontinue cyprohepta dine to help with appetite- Continue antiemetic therapy with Zofran as needed. Gastroesop hageal reflux disease 387085354 K21.9 - Continue omeprazole 40 mg twice daily for symptom management . Dysphagia 36020940 R13.1 0 [id number] r/t thyroiditi scontinue to push fluid intake as pt can toleratePt defers swallow eval.Pt under the care of [facility] endocrinol ogy. Will continue to follow. Thyroiditis 64916085 E06 .9 18854 thyromegal y upon PE, tenderness noted. Pt endorses voice hoarseness and dysphagiat hyroid u/s wnl, parathyroi d study performed by GI in [place], [place] wnl.Pt has been seen and evaluated by [facility]-endocri [facility]ology. Now under the care of [facility] endocrinol ogy. Will follow. [id number] ALEXA TREJO PA-C [facility] [address] [place] [phone] 03/15/2025 16:03:13 03/15/2025 16:54:30 Mass of pancreas [id number] K86.89 R61 [id number] Issues with eating and has been seeing [facility] to evaluate that. Pt had to pull her NG tube.- Continue to follow with specialist s at [facility]. - Patient will proceed with scheduled PEG tube placement. Restlessne ss and agitation [id number] R45.1 87565 Stopped the Lexapro for the past week. Has tolerated that well.- Continue discontinu ation of Lexapro. - Continue hydroxyzin e as needed, which seems to be effective. Alopecia 32426530 L65.9 94950 - Continue to follow with specialist s for management .-Could be related to hormones or thyroid. Has been to dermatolog y and would recommend returning for further evaluation if symptoms are worsening. Sometimes biopsies are required for definitive diagnosis. Congestion of nasal sinus 26854235 J01.00 R09.81 152060 - Prescribed amoxicilli n.- Prescribed two doses of fluconazol e to be taken as needed for symptoms of a yeast infection. - Prescripti ons sent to the [facility] Health Concerns Section Related Observation LastModified by Organization Detai ls LastModified Time None Recorded Concern Status LastModified by Organization Details LastModified Time None Recorded Advance Directives Directive None Recorded Payers Insurance Date Sequence Insurance Name Policy Number Policy Soto Covered Member ID Soto Member ID Guarantor Name 03/15/2025 1 [place] - [employer] 112 Alexandrea Long [id number] Alexandrea Long 05/29/2023 3 MEDICAID-[facility] CHOICES - FFS/TRADITION [place] Alexandrea Brown [id number] Alexandrea Bermudez Long 05/29/2023 2 [employer] (MEDICAID REPLACEMENT - HMO) [id number] Alexandrea Brown [id number] Alexandrea Ruvalcabahop 05/29/2023 1 [place] [id number] Alexandrea Brown [id number] Alexandrea Bermudez Long Notes Date Note Type Note Provider Name and Address Organization Details Recorded Time 5 text/html ROS as noted in the HPI 39yo female with PMHx bariatric surgery, anxiety, Hal's, SSS ST s/p PPM, cardiogenic syncope, Hx CVA, TBI, persistent GI bloating, diarrhea x7 mos, new Dx VIPoma, recent ileus with NG tube placement/removal within the last week presents with spontaneous and abrupt thyromegaly x2 days. Reports this continues to grow in size. Endorses changes to voice, dysphagia. Describes throbbing, toothache-like pain to thyroid.Denies pharyngitis. Denies dyspnea, SOA.Reviewed labwork performed at [facility] this morning.TSH 0.057, T4 wnl. Pt taking levothyroxine for tx (dose recently decreased 10/29/24 d/t elevated TSH). ROOPA MCFARLAND APRN [address] [place], [address], [facility] 11/24/2024 11:23:41 5 text/html 39-year-old female patient with a past medical history as in problem list significant for polycystic ovarian syndrome, history of stomach bypass, subclinical hypothyroidism on thyroid hormone replacement therapy seen today as a new consultation thyroid evaluationRoopa Mcfarland APRNReason for consultation thyromegalySeen in the office today accompanied by her Unfortunately she reported longstanding history of intermittent gastrointestinal symptoms in the form of diarrhea, constipation, abdominal pain which she required several admissions to the emergency room and hospitalization and multiple gastrointestinal procedures including colonoscopy and upper EGD which reportedly showed colitis without clear etiology She comes into the office today and was tearful and she is complaining of worsening of her diarrhea, intermittent constipation, abdominal pain, nausea. She is known to have subclinical hypothyroidism and she is currently on levothyroxine 50 mcg every a.m. down from 75 mcg Thyroid ultrasound done showed thyroid enlargement JENN CORDERO MD [address] [place] [address], [phone], [place] - [facility] 12/16/2024 09:41:41 5 text/html ROS as noted in the HPI 39yo female with complicated PMHx bariatric surgery, anxiety, Hal's, SSS ST s/p PPM, cardiogenic syncope, Hx CVA, TBI, persistent GI bloating, diarrhea x7 mos, new Dx'd VIPoma presenting for persistent thyroid tenderness, choking sensation upon swallowing. Thyroiditis: - The patient reports difficulty swallowing and tenderness in the thyroid region, with symptoms persisting since November 19. - The software development engineer diagnosed thyroiditis and recommended medication, but the patient continues to experience significant tenderness and difficulty swallowing. - Thyroid function tests showed an increase in TSH levels from 59 to 70, while thyroid hormone levels remain normal. Vasoactive intestinal peptide-secreting tumor (VIPoma): - The patient has a history of VIPoma, with symptoms including diarrhea and abdominal bloating. - A PET scan revealed a lesion in the pancreas, and an MRCP is scheduled for further evaluation. - The patient is currently on budesonide, which has been reduced from 9 mg to 6 mg due to changes in symptoms. Documentation on this patient encounter was supported using voice-enabled Al technology. The patient consented to recording for the purpose of documenting the encounter. Provider reviewed content of the generated note prior to signature.Previously,Pt reports constant, sharp razor-like pain that persists. Notes pain and bloating upon eating which leads to dry heaving, bloating. Per pt, has lost ~30# since April.CT abdomen showed possible rectal abscess which was later ruled out. Pt has been seen at ED and [facility]. Given oral abx x2 and IV Zosyn. Has seen [facility] and had referral to [facility] 07/09/24.Stool studies wnl. EGD and colonoscopy [...] been eating gluten-free, seed-free.Has had iron infusions x5.[facility] prescribed magnesium 500mg BID (reports this [...] Has been referred for PPM battery replacement. Underwent CT abdomen for suspected ileus vs gastroenteritis. Had NG placement and later increased to tube feeding. Flexible sigmoidoscopy wnl. MR enterography wnl. Pt found to have elevated vasoactive intestinal peptides and PET CT ordered. Diagnosed with VIPoma. ROOPA MCFARLAND, CHEMISTRY DEPARTMENT CHAIR [address] [place], [address], [facility] 12/17/2024 18:53:58 5 text/html Hospitalization Contact RecordReported by PatientHospitalization Contact RecordFor follow up, patient reportshospital: __ ( main)anddate of contact: (please enter in format 'mm/dd/yyyy') (01/20/2025)(irregular heart bit, dizziness.).39yo female with PMHx bariatric surgery, anxiety, Hal's, SSS ST s/p PPM, cardiogenic syncope, Hx CVA, TBI, persistent GI bloating, diarrhea x10 months with new Dx VIPoma presents for ED f/u. Pt presented to [facility] ED 01/20/25 with c/o palpitation. Suspects this is r/t dehydration. Potassium and Mg levels wnl.EKG NSR HR 69.Pt given fluids and Zofran.Unable to tolerate food. Drinking Gatorade, Diet Coke and vitamin water. Unable to tolerate water.Continues to have 20+ BMs /day, per pt.Has appt next week at [facility] with GI for EGD, will see their [...] Pt has been seen at ED and [facility]. Given oral abx x2 and [...] for thyroiditis.Pt given medrol dosepak, referred to [facility] GI for VIPoma tx.PET CT 11/09/24 with no mass seen on noncontrast study. Has been evaluated by endocrinology. Now under the care of [facility] endocrinology.Has appt with [facility] GI next week.ROS as noted in the HPI Thyroiditis: - The condition has resulted in significant enlargement of the thyroid gland. - The patient has experienced fluctuations in TSH levels, previously as high as 200, now reduced to 25 mcg of Synthroid.- patient now under the care of [facility] endocrinology Dehydration: - The patient is experiencing [...] for an endoscopy and endocrinology consultation at [facility]. Dysphagia: - The patient reports difficulty swallowing, leading to choking episodes when attempting to eat solid food. - The patient has not consumed solid food for five days due to dysphagia.- declines swallow eval. Possibly will receive feeding tube per GI with [facility]. Diarrhea: - The patient reports experiencing up [...] of the generated note prior to signature. ROOPA MCFARLAND, CHEMISTRY DEPARTMENT CHAIR [address] [place], [address], [place] - [facility] 02/01/2025 10:47:42 5 text/html she need severe hair loss, acne, [...] food properly. - She is managed by [facility] for this complex condition. - She recently had an NG tube for five weeks, which was removed due to nasal drainage and inflammation. - Prior treatments have included budesonide and two courses of xifaxan. - A PEG tube placement is scheduled for the week of April 05. Graves' disease: - Her thyroid is enlarged again. - Testing at [facility] revealed a positive TSI, consistent with Graves' disease. - During flare-ups, her voice changes, her thyroid becomes tender, and she experiences dysphagia. - A previous software development engineer had diagnosed her with thyroiditis. - She is currently on a 25 mcg dose of a thyroid medication. Alopecia: - The patient reports significant hair loss, stating her hair is almost gone and she has no eyebrows. - A waterworks chief engineer suggested this could be the beginning of [...] prior to signature. ALEXA TREJO PA-C [address] [place], [address], [place] - [facility] 03/15/2025 16:59:16 OBGyn Episode No OBEpisode recorded.
[2025-04-16] MEDS: ONDANSETRON 4MG/2ML VIAL 4 MG IV (20:57)
[2025-04-16] MEDS: MORPHINE 4MG/ML SYRINGE 4 MG IV (20:57)
[2025-04-16] MEDS: LACTATED RINGERS 1000ML 1,000 ML 999 ML IV (20:58)
[2025-04-16 20:59] LABS: Hematocrit 36.8 % (37.0-47.0); Hemoglobin 12.1 g/dL (12.2-16.2); Immature Granulocytes % 0.4 %; Mean Corpuscular HGB Conc 32.9 g/dL (31.8-35.4); Mean Corpuscular Hemoglobin 29.1 pg (27.0-31.2); Mean Corpuscular Volume 88.5 fl (81-99); Nucleated Red Blood Cells % 0 %; Platelet Count 302 K/mm3 (142-424); Red Blood Count 4.16 M/mm3 (4.20-5.40); Red Cell Distribution Width-SD 42.3 fL; White Blood Count 8.1 K/mm3 (4.8-10.8)
--- NOTE | 2025-04-16 21:02 | HMH.EDGENADL ---
Discharge Plan Disposition Patient Disposition: Home, Self-Care Referrals Follow up/Referrals: Provider,Referral, [Primary Care Provider, Medical] - See instructions Activity Restrictions/Add. Instructions Additional Instructions/Restrictions: The leak around your percutaneous jejunostomy tube is likely secondary to an immature stomal tract that should close up within 14 days of your procedure. I would recommend cleaning this with soap and water and then placing a barrier cream such as zinc oxide/Desitin over this area. Make sure that you place an absorbent dressing over this. If this continues to be on this time. You may consider upsizing the tube. There is no evidence of any malpositioning infection or other complications on CT scan today. Please follow-up with your surgeons. Additionally on interrogation of your pacemaker there is no evidence of any ventricular dysrhythmia as discussed. You were cleared to follow-up with your direct mail manager. Clinical Impressions Clinical Impression: Leak of percutaneous jejunostomy tube Instructions Patient Instructions: DI for Laceration Repair Print Language Print Language: Swiss Discharge ED Provider: Renata Deal General Adult HPI General Chief complaint: Wound/Laceration Stated complaint: abdominal surgery,site leaking fluid Time Seen by Provider: 04/16/25 20:04 Mode of Arrival: Ambulatory Source of Information: Patient Description of Symptoms (Recalled from ER Triage Doc. by RN): Patient presents to the ED with complaints of would drainage from her PEJ tube that was placed at the [facility] on Saturday. She denies any fever, complaints of mild discomfort even with round the clock methocarbomol. History of Present Illness HPI narrative: Patient is a 39-year-old female with a remote history of a Kelly-en-Y gastric bypass she was relatively asymptomatic over the last 20 years up until earlier this year when she started having profuse and uncontrollable diarrhea. She had significant weight loss of about 40 pounds. This culminated in numerous visits to hospital such as [facility] and ultimately to [facility]. She is scheduled for multiple surgeries at [facility] including in April to have her thyroid removed as they believe that some component of both arrhythmias that she has been experiencing but also diarrhea associate with this also there is a possible VIP Melissa and they are concerned that she also has obstructive findings and needs a revision of her Kelly-en-Y. That is scheduled for May. She recently on Saturday had a PEJ tube that was placed and since that time has had significant worsening abdominal pain and drainage around the site. Is here primarily for that. Of note the patient has a pacemaker and states that she has been told that she had 3 episodes of V-fib in the hospital most recently on Saturday on the table. However they discharged her without a defibrillator or definitive plan for that. Related Data Allergies Allergy/AdvReac Type Severity Reaction Status Date / Time adhesive Allergy Other Verified 04/16/25 20:12 [facility] Disclaimer: The information contained in this section may have been updated after the patient was seen, as this information can be updated by other users. Social History Smoking Status: Never smoker alcohol intake: never current occupational status: other Travel in the last 8 weeks?: None ROS Obtained: Yes All systems reviewed & no additional complaints except as documented Physical Exam General General appearance: alert and in no apparent distress Respiratory Respiratory exam: Present normal lung sounds bilaterally Cardiovascular Cardiovascular exam: Present regular rate and normal rhythm Abdominal Exam Abdominal exam: Present soft and tenderness (Patient has tenderness around the feeding tube insertional site no purulent drainage or pathologic erythema noted) Neurological Exam Neurological exam: Present alert and oriented X3 Medical Decision Making Medical Records Screening: Per USPSTF and CDC recommendations, given the prevalence of disease in our region, it is our hospital?s policy to screen for HIV and viral Hepatitis for all patients aged 18 and over and those with ongoing risk factors. [place] Inquiry Pt receiving controlled substance: No Vital Signs: 04/16/25 20:03 04/16/25 20:05 04/16/25 20:30 Temperature 98.4 F Temperature Source Oral Pulse Rate 64 66 Pulse Rate [Right Radial] 70 Respiratory Rate 16 Blood Pressure 117/74 117/75 Blood Pressure [Right Arm] 117/74 Blood Pressure Mean [Right Arm] 88 Blood Pressure Source [Right Arm] Automatic Cuff Blood Pressure Position [Right Arm] Sitting 02 Sat by Pulse Oximetry 99 95 100 Oxygen Delivery Method Room Air 04/16/25 20:34 04/16/25 21:01 04/16/25 22:01 Temperature Temperature Source Pulse Rate 69 69 70 Pulse Rate [Right Radial] Respiratory Rate 18 Blood Pressure 117/74 112/74 99/70 L Blood Pressure [Right Arm] Blood Pressure Mean [Right Arm] Blood Pressure Source [Right Arm] Blood Pressure Position [Right Arm] 02 Sat by Pulse Oximetry 95 100 100 Oxygen Delivery Method Room Air 12/26/25 22:30 Temperature Temperature Source Pulse Rate 71 Pulse Rate [Right Radial] Respiratory Rate Blood Pressure 112/70 Blood Pressure [Right Arm] Blood Pressure Mean [Right Arm] Blood Pressure Source [Right Arm] Blood Pressure Position [Right Arm] 02 Sat by Pulse Oximetry 99 Oxygen Delivery Method Lab Data Lab results reviewed: Yes I reviewed the patient's lab results. Lab Results 04/16/25 20:51: WBC 8.1, RBC 4.16 L, Hgb 12.1 L, Hct 36.8 L, MCV 88.5, MCH 29.1, MCHC 32.9, RDW 13.0, Plt Count 302, MPV 11.0 H, Neut % (Auto) 55.8, Lymph % (Auto) 29.0, Boundary % (Auto) 7.0, Eos % (Auto) 7.3, Baso % (Auto) 0.5, Neut # (Auto) 4.5, Lymph # (Auto) 2.4, Boundary # (Auto) 0.6, Eos # (Auto) 0.6 H, Baso # (Auto) 0.0, Sodium 138, Potassium 4.0, Chloride 109 H, Carbon Dioxide 24, Anion Gap 9.0, BUN 16, Creatinine 0.70, Estimated Creat Clear 96, Estimated GFR 93, Est GFR ( Amer) 112, Glucose 91, Calcium 8.4, Magnesium 2.1, Total Bilirubin 0.4, AST 23, ALT 17, Alkaline Phosphatase 55, Total Protein 6.5, Albumin 3.7, Globulin 2.8, Albumin/Globulin Ratio 1.3, Lipase 200 04/16/25 20:51 04/16/25 20:51 Orders (Tests/Meds): ED MEDICATIONS Generic Name Dose Route Start Last Admin Trade Name Freq PRN Reason Stop Dose Admin Sodium Chloride 10 ml 04/16/25 21:47 04/16/25 21:52 Sodium Chloride 0.9% 10ml Syr (Rad Only) IV 05/16/25 21:46 10 ml NEEDED PRN Administration Maintain IV Site Discontinued Medications Generic Name Dose Route Start Last Admin Trade Name Freq PRN Reason Stop Dose Admin Lactated Ringer's 1,000 mls @ 999 mls/hr 04/16/25 20:45 04/16/25 22:59 Lactated Ringer's 1000 Ml Bag IV 04/16/25 21:45 Infused .Q1H1M RHODA Infusion Iopamidol 75 ml 04/16/25 21:47 04/16/25 21:52 Iopamidol-370 (76%);100ml Bottle IV 04/16/25 21:48 75 ml ONCE ONE Administration Morphine Sulfate 4 mg 04/16/25 20:34 04/16/25 20:57 Morphine 4mg/Ml Syringe IV 04/16/25 20:35 4 mg ONCE ONE Administration Ondansetron HCl 4 mg 04/16/25 20:34 04/16/25 20:57 Ondansetron 4mg/2ml Vial IV 04/16/25 20:35 4 mg ONCE ONE Administration ORDERS Category Date Time Status CT abdomen pelvis w con Stat Cat Scan 04/16/25 20:34 Completed CBC w/Auto Diff [Complete Blood Count Auto Diff] Stat Lab 04/16/25 20:51 Completed CMP [Comprehensive Metabolic Panel] Stat Lab 04/16/25 20:51 Completed Lactic Acid Stat Lab 04/16/25 20:34 Ordered Lipase Stat Lab 04/16/25 20:51 Completed Magnesium Stat Lab 04/16/25 20:51 Completed Medical Decision Narrative: Patient with above history and physical we will obtain a CT scan with contrast to evaluate for possible recent complications associate with her PEJ tube placement including obstruction perforation abscess formation etc. Additionally patient states that she had a near syncopal episode on Saturday we interrogated her device and I spoke with the rep patient had no episodes of any type of ventricular dysrhythmia at any point. This makes discharging the patient if there is no surgical emergency found to be reasonable as she likely does not need an emergency defibrillator unclear as to why she has been told this in the past and she has had a pacemaker since June of this year without any evidence of any ventricular dysrhythmias according to the rep that I spoke with on the phone. Will check electrolytes and reassess after her CT scan is performed. Reassessment 11:12 PM patient remains very stable electrolytes normal I discussed the interrogation with the rep from her device and he stated there was no evidence of any ventricular dysrhythmia at any point recently. I am comfortable the patient following up outpatient with cardiology. Electrolytes unremarkable. CT scan performed I personally turbid shows no evidence of any intra-abdominal pathology tube appears to be in normal position no evidence of significant fluid collection abscess evidence of inflammation or infection perforation etc. Likely the stomal tract has not yet been matured as this is only been there for a few days which is most likely the cause of her leaking that she is mostly concerned about. She may need to upsize her tube or just wait until this tract is mature. In the meantime she will have a zinc oxide based or petroleum based ointment and absorbent gauze around the area and to follow-up with her surgeons. No evidence of any skin breakdown at the moment. Critical Care Critical Care Time Critical Care Time: No
[2025-04-16 21:10] LABS: Alanine Aminotransferase 17 U/L (12-78); Albumin Level 3.7 g/dl (3.5-5.0); Albumin/Globulin Ratio 1.3 (1.1-1.8); Alkaline Phosphatase 55 U/L (38-126); Anion Gap 9.0 mEq/L (5-15); Aspartate Amino Transferase 23 U/L (14-36); Bilirubin,Total 0.4 mg/dl (0.2-1.3); Blood Urea Nitrogen 16 mg/dl (7-17); Calcium 8.4 mg/dl (8.4-10.2); Carbon Dioxide 24 mmol/L (22.0-30.0); Chloride 109 mmol/L (98-107); Creatinine Clearance Estimated 96 mL/min (50-200); Creatinine,Serum 0.70 mg/dl (0.52-1.04); Estimated Glomerular Filt Rate 93 ml/min (>60); GFR (African American) 112 ML/MIN (>60); Globulin 2.8 g/dL (1.3-3.2); Glucose 91 mg/dl (74-100); Lipase 200 U/L (23-300); Potassium 4.0 mmoL/L (3.5-5.1); Sodium 138 mmol/L (136-145); Total Protein,Serum 6.5 g/dl (6.3-8.2)
[2025-04-16 21:11] LABS: Magnesium 2.1 mg/dl (1.6-2.3)
[2025-04-16] MEDS: SODIUM CHLORIDE 0.9% 10ML SYR (RAD ONLY) 10 ML IV (21:52)
[2025-04-16] MEDS: IOPAMIDOL-370 (76%);100ML BOTTLE 75 ML IV (21:52)
== END 2025-04-16 23:18 | disposition home or self-care (01) ==
PROVIDERS: Emergency Provider Student in an Organized Health Care Education/Training Program
DX: K94.19 Other complications of enterostomy (principal); Z98.84 Bariatric surgery status
CPT/HCPCS: 74177; 80053; 83690; 83735; 85025; 96361; 96374; 96375; 99285; J2270; J2405; J7120; Q9967